=== PATIENT | female | born 1955 | race Caucasian/White ===

== ENCOUNTER 2022-05-10 09:36 | Outpatient (CLI) | payer OTHER, SELFPAY ==
[2022-05-10 11:20] LABS: INR 2.46 (0.91-1.10); Prothrombin Time 27.1 Seconds
== END 2022-05-10 09:37 | disposition home or self-care (01) ==
PROVIDERS: PCP Internal Medicine; Visit Provider Internal Medicine
DX: D68.62 Lupus anticoagulant syndrome (principal); E11.9 Type 2 diabetes mellitus without complications
CPT/HCPCS: 85130; 85610

== ENCOUNTER 2022-06-06 10:00 | Outpatient (RCR) | payer OTHER, SELFPAY ==
--- NOTE | 2022-05-03 14:28 | PT.OPE ---
PT [place] [facility] PT [facility] Eval Start: 05/03/22 11:37 Freq: Status: Active Protocol: Document 05/03/22 14:23 CJT (Rec: 05/03/22 14:28 CJT [id number]) E-Signed By Tomas Pepper PT Physical Therapy Outpatient Evaluation Insurance Information Recert Due Date 08/01/22 Insurance Name [employer] Diagnosis S32.599A - Pubic ramus fracture Treating Diagnosis M25.511 - R hip pain Referring Carol Dow MD Subjective Subjective Pt presents with pain following R rib and pubic ramus fracture that she sustained from a fall on after slipping and falling at a gym pool. Pt was hospitalized 7 days due to uncontrolled pain and has had issues managing her pain since . Pt presents with use of SPC for ambulation assistance. Pt notes walking short distances increases her pain. Is not able to run all errands currently due to pain and struggles to walk from her condo to her car in the garage without a significant increase in pain. Pts pain is lowest in the morning and gradually increases as she is more active throughout the day . Pt is struggling to sleep at night more than 3-4 hours at a time, but does not indicate if this is due to pain or for another reason. Pt lives alone in a senior condo building. 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 Pain Comments 05/07 Current Work Status Retired Precautions Weight Bearing Status Weight Bear as Tolerated Therapy Limitations/Systems Review Not Limited Objective Range of Motion R Hip ROM Flexion - 120 Abduction - 45 IR/ER - 30/15 L Hip ROM Flexion - 120 Abduction - 45 IR/ER - 20/30 Strength R Hip Strength - all motions graded as 3/5 MMT with pain in R groin and posterior hip L Hip Strength Flexion - 4/5 MMT Abduction - 4/5 MMT Adduction - 5/5 MMT IR - 5/5 MMT ER - 5/5 MMT R knee Extension -4/5 MMT R Knee Flexion -4/5 MMT L knee Extension - 4/5 MMT L knee Flexion - 5/5 MMT L ankle DF - 4/5 MMT Palpation Spasms present in R adductor bundle and R TFL and pt reports pain with palpation to these mm as well as R glute med/min > piriformis Assessment Assessment/Impression Pt is a 66 year old female who presents to OP PT clinic with complaints of R hip and pelvic pain following a fall on 02/28/22 in which she fractured a R rib and R pubic ramus. Pt was hospitalized for 7 days due to high pain and inability to care for herself independently. Pt was in W/C for 6-8 weeks per her report due to inability to bear weight due to pain and notes that her pain was fairly well managed until she made the transition from the W/C to use of a walker. Pts pain has been high since making this transition but she notes that she is gradually improving. Pt presents with use of SPC for ambulation today but notes that prior to her fall she was not using a cane. Testing reveals deficits in B LE strength and ROM although hip flexion and abduction ROM is well-preserved. Pt would like to decrease her pain and improve her strength so that she may return to performing errands on her own and without needing to use any assistive devices to aid her. Skilled PT services are medically necessary to address deficits and return patient to highest level of function. Recommend physical therapy sessions 1-2/ week for 8-12 weeks. Pt agrees with this plan, but would like to attend therapy sessions 1/week for now. Printout of HEP was given for I completion and pt gives verbal understanding of each exercise. Primary Functional Limitations Walking, stairs, laying on R side Plan of Care Rehabilitation Potential Good Physical Therapy Goals STG - To be completed in 2-3 weeks: 1. Pt will demo 4/5 MMT or greater for all hip motions bilaterally to provide better support to pelvis with ambulation. 2. 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 3. Pt will report ability to sleep throughout the night without waking due to pain so that she may wake well rested with reduced mental fatigue. LTG - To be completed in 8-12 weeks: 1. Pt to be I with HEP so that she may I manage progression of symptoms. 2. Pt will demo 5/5 MMT for all LE motions for ease of ambulation and ability to ascend descend steps. 3. Pt will ambulate 1000+ ft over uneven surfaces without LOB so that she may walk with her daughter and grandchildren in her yard with confidence and low risk for falls. 4. Pt will report max 2/10 pain in R hip with all activities so that she may return to running errands and playing with her grandchildren without debilitating pain. Treatment Plan/Direct Interventions Electrical Stimulation,Gait Training,Heat,Joint Mobilization,Manual Therapy, Neuromuscular Re-ed,Self-Care/ Home Management,Therapeutic Exercises,Ultrasound Frequency/Duration 1-2/week for 8-12 weeks Patient Will Be Discharged From Therapy Completion of LTG(s),Skills Plateau,Independent w/HEP, Independently Progressing Evaluation Billing Untimed Code Treatment Minutes 35 PT Eval No Charge No Complexity Low Certification Information Initial Certification Date 05/03/22 Ending Certification Date 08/01/22
== END 2022-08-02 11:20 | disposition home or self-care (01) ==
PROVIDERS: PCP Internal Medicine; Visit Provider Internal Medicine
DX: S32.599A Other specified fracture of unspecified pubis, initial encounter for closed fracture (principal); M25.511 Pain in right shoulder; Z51.89 Encounter for other specified aftercare
CPT/HCPCS: 97110; 97116; 97140; 97161; 97530

== ENCOUNTER 2023-02-01 08:20 | Outpatient (CLI) | payer OTHER, SELFPAY | END 2023-02-01 08:21 | disposition home or self-care (01) | LOC: NFLDREF 18:50 | PROVIDERS: PCP Internal Medicine; Referring Provider Internal Medicine; Visit Provider Internal Medicine | DX: D68.62 Lupus anticoagulant syndrome (principal); E11.9 Type 2 diabetes mellitus without complications; I10 Essential (primary) hypertension; Z79.01 Long term (current) use of anticoagulants | CPT/HCPCS: 80053; 80061; 82043; 82570; 85130 ==

== ENCOUNTER 2023-04-30 10:16 | Outpatient (CLI) | payer OTHER, SELFPAY | END 2023-04-30 10:17 | disposition home or self-care (01) | PROVIDERS: PCP Internal Medicine; Visit Provider Internal Medicine | DX: I10 Essential (primary) hypertension (principal); E11.9 Type 2 diabetes mellitus without complications; D68.62 Lupus anticoagulant syndrome | CPT/HCPCS: 85130; 85610 ==

== ENCOUNTER 2023-07-24 10:16 | Outpatient (CLI) | payer OTHER, SELFPAY | END 2023-07-24 10:17 | disposition home or self-care (01) | PROVIDERS: PCP Internal Medicine; Visit Provider Internal Medicine | DX: I10 Essential (primary) hypertension (principal); E11.9 Type 2 diabetes mellitus without complications; D68.62 Lupus anticoagulant syndrome; N18.9 Chronic kidney disease, unspecified; Z79.01 Long term (current) use of anticoagulants; Z51.81 Encounter for therapeutic drug level monitoring | CPT/HCPCS: 80053; 85130; 85610 ==

== ENCOUNTER 2023-08-29 10:48 | Outpatient (CLI) | payer OTHER, SELFPAY | END 2023-08-29 10:49 | disposition home or self-care (01) | LOC: NFLDREF 10:48 | PROVIDERS: PCP Internal Medicine; Visit Provider Internal Medicine | DX: Z79.01 Long term (current) use of anticoagulants (principal) | CPT/HCPCS: 85130; 85610 ==

== ENCOUNTER 2023-11-09 12:21 | Emergency (ER) | payer OTHER, SELFPAY ==
[2023-11-09 12:38] VITALS: BP 119/68; PULSE 91; RESP 18; TEMP 36.6; O2SAT 97; BMI 28.4
--- NOTE | 2023-11-09 13:02 | CRLHL7_ITS ---
For Patients: As a result of the Century Cures Act, medical imaging exams and procedure reports are released immediately into your electronic medical record. You may view this report before your referring provider. If you have questions, please contact your health care provider. INDICATION: Confusion and right hand numbness TECHNIQUE: CT head without contrast. COMPARISON: Head CT 09/01/2021 FINDINGS: CSF spaces: Extra-axial collection on the left with intermixed low-density and high-density. This measures up to 10 millimeters in maximal thickness. Left to right subfalcine shift of 4 millimeters. Brain parenchyma: Cerebral atrophy with some sulcal effacement within the left hemisphere. Old left parietal infarct. Skull base and calvarium: The visualized paranasal sinuses and mastoid air cells demonstrate no acute or significant findings. The visualized orbits are grossly unremarkable. No skull fractures. Atherosclerosis. IMPRESSION: 1. 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 2. Old left parietal infarct. 3. Cerebral atrophy. Results called to Dr. Flores at 1425 on 11/09/2023 Please note that all CT scans at this facility use dose modulation, iterative reconstruction, and/or weight-based dosing when appropriate to reduce radiation dose to as low as reasonably achievable. Dictated by Rosalio Gordon MD @ 11/09/2023 2:26:52 PM (Electronically Signed)
--- OUTSIDE RECORDS SUMMARY | 2023-11-09 13:16 | XMS_ITS | Clinical Summary ---
Author Name Unknown Organization [facility] Address [place], [place] [address] Care Team Providers Care Painter Rough Name Role Phone Victor M Kumar MD Primary Care Provider Allergies Active Allergy Reactions Criticality Noted Date Comments Blood-Group Specific Substance Other - Describe In Comment Field 10/02/2011 Patient has a non-specific antibody. Blood product orders may be delayed. Draw 1 red top tube and 2 purple top tubes for all Type and Screen/Type and Crossmatch orders. Citalopram Diaphoresis 08/15/2017 Heparin Analogues Nausea And Vomiting 9 Oxycodone Nausea Only,Headache High 12/20/2010 Pt wants this allergy removed - works well for pain in general but might give her a JIMENEZ per pt report. Other reaction(s): dizzy, nausea and vomitting Sulfa (Sulfonamide Antibiotics) Arthralgia 08/12/2009 Medications Medication Sig Dispensed Refills Start Date End Date Status lancets (ACCU-CHEK MULTICLIX LANCET) As directed. Test 4 times per day. 102 box 0 09/13/2010 Active blood sugar diagnostic (ONE TOUCH ULTRA TEST) strip As directed. Dispense test strips covered by the patient insurance. Test 3 times per day. 1 Bottle 0 12/20/2010 Active fluticasone, 50 mcg per actuation, nasal (FLONASE) 50 mcg/Actuation nasal sprayIndications:al lergic rhinitis Inhale 1 [place] into both nostrils once daily. 1 Bottle 12 05/19/2011 Active gabapentin (NEURONTIN) 300 mg capsuleIndications: neuropathic pain Take 3 capsules by mouth 3 times daily. 810 capsule 1 09/05/2011 Active blood-glucose meter (ACCU-CHEK ADVANTAGE DIABETES) As directed. Dispense glucose meter, test strips and lancets covered by the patient insurance. Test QID or as directed times per day. 1 Device 0 09/13/2011 Active aspirin chewable 81 mg chewable tabletIndications:m yocardial infarction prevention Take 1 tablet by mouth or nasogastric tube once daily. 30 tablet 0 10/03/2011 Active nitroglycerin (NITROSTAT) 0.4 mg SL tabletIndications:a cute episode of anginal pain Place 1 tablet under the tongue every 5 minutes if needed for Chest Pain (For chest pain x 3 doses.). 1 0 10/03/2011 Active lovastatin (MEVACOR) 40 mg tabletIndications:h yperlipidemia TAKE ONE TABLET BY MOUTH IN THE EVENING WITH MEALS 30 tablet 0 09/23/2012 Active escitalopram oxalate (LEXAPRO) 5 mg tabletIndications:a nxiety with depression Take 5 mg by mouth once daily. 0 08/13/2017 Active metFORMIN (GLUCOPHAGE) 500 mg tabletIndications:t ype 2 diabetes mellitus Take 500 mg by mouth 2 times daily with meals. 0 07/03/2017 Active glipiZIDE extended-release (GLUCOTROL XL) 10 mg Extended-Release tabletIndications:t ype 2 diabetes mellitus Take 2 tablets. by mouth once daily. 0 07/23/2020 Active lisinopril-hydrochl orothiazide, 20-25 mg, (PRINZIDE, ZESTORETIC) 20-25 mg per tabletIndications:h ypertension Take 1 tablet by mouth once daily. 0 12/25/2019 Active acetaminophen (TYLENOL EXTRA STRGTH) 500 mg tabletIndications:C losed fracture of left tibial plateau, initial encounter Take 2 Tablets (1,000 mg) by mouth every 6 hours. Max acetaminophen dose: 4000mg in 24 hrs. 90 Tablet 30 02/25/2021 Active Lantus Solostar U-100 Insulin 100 unit/mL (3 mL) penIndications:Type 2 diabetes mellitus with other specified complication, without long-term current use of insulin (HC) Inject 25 units subcutaneous at bedtime. Product desired:LANTUS 0 02/25/2021 Active lactulose 10 gram/15 mL solutionIndications :Closed fracture of left tibial plateau, initial encounter Take 30 mL (20 g) by mouth every 6 hours if needed for Constipation. 0 02/25/2021 Active polyethylene glycol (MIRALAX; GLYCOLAX) 17 g powder for solutionIndications :Closed fracture of left tibial plateau, initial encounter Mix 17 g (1 Packet) in liquid then take by mouth once daily. 0 02/26/2021 Active insulin aspart, U-100, (NOVOLOG FLEXPEN) 100 unit/mL (3 mL) penIndications:Type 2 diabetes mellitus with other specified complication, without long-term current use of insulin (HC) Give subcutaneous TID with meals per blood glucose (mg/dL). Don't give corrective dose for PRN, post-prandial or nocturnal glucose checks unless ordered.Blood Glucose.....Dose.< 70...............S ee Hypoglycemia Protocol.70-149... .......No insulin, give prandial insulin, if ordered.150-199... .....1 unit.200-249...... ..2 units.250-299..... ...3. units.300-349..... ...4 units.350-399..... ...5 units.400 or greater....6 units & call MD 1 pen 0 02/25/2021 Active ondansetron (Zofran ODT) [address] 1 Tablet (4 mg) on the tongue every 8 hours if needed for Nausea/Vomiting. 0 02/28/2021 Active HYDROmorphone (DILAUDID) 2 mg tabletIndications:C losed fracture of left tibial plateau with routine healing, subsequent encounter Take 1-2 Tablets (2-4 mg) by mouth every 4 hours if needed for Pain (0-5 = 2mg; 6-10=4mg). 15 Tablet 0 03/01/2021 Active warfarin (COUMADIN) 5 mg tablet TAKE 1 TABLET BY MOUTH EVERY DAY EXCEPT SUNDAY. ON WEDNESDAYS, TAKE 1/2 TABLET. 0 07/07/2021 Active ammonium lactate 12% topical (LACHYDRIN) 12 % lotionIndications:T ype 2 diabetes mellitus with pressure callus (HC),Dry skin Apply topically to affected area(s) 2 times daily. 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 Navarro. Shae Mcclain RN 10/05/2011 2:46 PM Chest pain 09/30/2011 NSTEMI (non-ST elevated myocardial infarction) 1 12/01/2010 Protein C deficiency 09/30/2011 Low back pain 09/30/2011 Overview: Uses Vicodin Diabetic renal disease 04/26/2011 Diabetic Preventive Measures : foot exam eye exam urine protein 04/26/2011 Overview: Diabetic Preventive Measures: foot exam eye exam urine protein Breast cancer screening, high risk patient OVERD UE 12/23/10 12/24/[address] dorsey 11/09/2010 Sciatica Controlled with adrianna cotics. See repeat presciptions on vicodin. 05/17/2010 Overview: Controlled with narcotics. See repeat presciptions Issue of repeat prescriptions sciatica 0 Overview: Regular vicodin use for sciatica left leg. Patient has severe structual disease with good control on narcotics with no significant ill effects abuse issues. Other lesser modalities tried and are ineffective or contraindicated by comorbid conditions. 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 Geller (told cannot return to work). CVA 03/07/2009 (2 days after surgery): off Coumadin (stroke thought secondary to blood clot from lung; was found hypoxic in the hospital?) Residual memory loss, sometimes slurs speech, some right-sided weakness. Peripheral Arterial Disease Had claudication, s/p bypass 02/2008, had repeat surgery, then toe amputation for gangrene, then Right BKA. 08/12/2009 Overview: Had claudication, s/p bypass 02/2008, had repeat surgery, then toe amputation for gangrene, then Right BKA. Hospital ICU for sepsis, then Rehab, wound vac, skin graft, fell, revision of skin graft 02/2009. Right leg prosthesis and cane: Neurontin for phantom limb pain. Diabetes Mellitus II Novolog and Lantus (right B KA) 08/12/2009 Overview: Last A1c: 8.512/12/2010 a system change updated this record. This will not affect patient care or billing. This comment can be deleted. ASCVD (Arteriosclerotic Card iovascular Disease) 2002. s/p 2 stents 08/12/2009 Overview: 2002. s/p 2 stents. Hyperlipidemia on lovastatin ldl 11/09/2010 53 Overview: LDL 42 09/05/11 HIGH BLOOD PRESSURE on lisinopril hctz, carvedil ol 08/12/2009 Overview: Carvedilol, Lisinopril/HCTZ. DEPRESSION celexa, effexor c ymbalta all failed. start sertraline 09/05/11 08/12/2009 Overview: meds she has had before: celexa, lexapro, prozac, wellbutrin -- tolerated all these, not sure why any were changed. zoloft she did not like not sure why. effexor caused wt gain. She did not like cymbalta, stopped it fall 2009. celexa = diaphoresis DVT DVT, been told she has L AC and protein c deficiency. May have had a PE. On lifelong anticoagualtion, has been managed with coumadin and INRs, no 08/12/2009 Overview: DVT, been told she has LAC and protein c deficiency. May have had a PE. On lifelong anticoagualtion, has been managed with coumadin and INRs, not factor Xs. Resolved Problems Problem Noted Date Diagnosed Date Resolved Date Diabetic eye exam 04/26/2011 04/26/2011 Major depression, recurrent 08/24/2010 12/24/2010 Overview: meds she has had before: celexa, lexapro, prozac, wellbutrin -- tolerated all these, not sure why any were changed. zoloft she did not like not sure why. effexor caused wt gain. cymbalta caused night sweats. 08/24/2010 Ramana Navarro MD Stroke History of TIA or mul tiple small biswas at [facility] 200810/27/2009 Overview: History of TIA or multiple small biswas at [facility] 2008 Encounters Date Type Department Care Team Description 11/06/2023 Lab Requisition [facility] [phone] Victor M Kumar MD 08/29/2023 Lab Requisition [facility] [phone] Victor M Kumar MD from Last 3 Months Immunizations Name Administration Dates Next Due COVID-19 vaccine ([employer] 30mcg/0.3mL) RENEA MICHEL 01/15/2021,12/24/2020 Influenza RIV4 (Age 18+ Year s) PRESERV FREE 08/12/2020 Influenza Virus, Unspecified 07/19/2015, 09/03/2014,07/12/2012,2011,08/12/2011,07/19/2004,08/10/2003,1 11/18/2001 Influenza, IIV3 (Age >=3 years) 07/13/2009,09/06 Influenza, IIV4 08/09/2019,07/13/2018,08/10/2016 Influenza,CCIIV4 PRESERV FREE 07/25/2017 Pneumococcal Poly,23-Valent (Pneumovax) 10/03/2013,09/06/2000 Pneumococcal conj 13-Valent (Prevnar 13) 12/15/2020 Td (Age >=7 Years) 02/27/2008,05/29/1997 Td, Preservative Free (age > = 7 Years) 03/12/2009 Tdap 08/12/2020 Tdap, Unspecified 06/07/2007 Zoster (Shingrix-RZV, recombinant) 10/13/2019, Family History Medical History Relation Name Comments Alcohol/Drug Brother 2 Hypertension Father Other Father Lymphoma Stroke Father Heart Disease Maternal Grandfather 90 y.o . Heart Disease Maternal Grandmother 50s y. o. Diabetes Mother Hypertension Sister 2 Psychiatric illness Sister 3 Depressi on Relation Name Status Comments Brother 1 (Age 50) ETOH Brother 2 Father (Age 60s) Lymphoma Maternal Grandfather Maternal Grandmother Mother (Age 79) In her sle ep Sister 1 Alive 3 Sisters Sister 2 Sister 3 Social History Tobacco Use Types Packs/Day Years Used Date Smoking Tobacco: Former Cigarettes 2 12 0 10/29/1988 - 10/29/2000 Smokeless Tobacco: Never Tobacco Cessation:Counseling Given: Yes Comments:None since 2000. Alcohol Use Standard Drinks/Week Comments No 0 (1 standard drink = 0.6 oz pur e alcohol) None since 2007: by choice. 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 Pulse 82 09/20/2021 2:35 PM ORE DRESSING ENGINEER Temperature 36.5 ??C (97.7 ??F) 02/25/2021 8:00 AM CD T Respiratory Rate 16 02/25/2021 8:00 AM CDT Oxygen Saturation 98% 09/20/2021 2:35 PM ORE DRESSING ENGINEER Inhaled Oxygen Concentration - - Weight 92.1 kg (203 lb) 09/20/2021 2:35 PM ORE DRESSING ENGINEER Height 177.8 cm (5' 10) 02/22/2021 12:32 PM CDT Body Mass Index 29.13 02/22/2021 12:32 PM CDT Plan of Treatment Health Maintenance Due Date Last Done Comments Depression screening for age 12+ 1967 Hepatitis C screening for ag e 18-79 1973 Mammogram for age 45-75 10/11/2012 10/11/2011 Colonoscopy through age 75 11/17/201511/17 (Completed outside of [facility]), 10/29/2005 (Completed outside of [facility]) BMI (ht and wt on same day) for age 18+ 07/17/2019 07/17/2018, 08/15/2017 DEXA/DXA scan for age 65+ 2020 Medicare Wellness for age 65+ 2020 Lipids for age 45-75 04/12/2023 04/12/2018, 09/05/2011, 04/26/2011, Additional history exists COVID-19 vaccine series (24 season) 2023 07/29/2021, 01/15/2021, 12/24/2020 Influenza for age 65+ 06/29/2023 08/12/2020 , 08/09/2019, 07/13/2018, Additional history exists Pneumococcal series for age 65+ (3 of 3 - PPSV23 or PCV20) 12/15/2025 12/15/2020, 10/03/2013, 09/06/2000 Tetanus booster 08/12/2030 08/12/2020, 02/26, 02/27/2008, Additional history exists Zoster (shingles) series for age 50+ Completed 10/13/2019, 03/28/2019 Tdap Completed 08/12/2020, 06/07/2007 Procedures Procedure Name Priority Date/Time Associated Diagnosis Comments FACTOR 10 CHROMOGENIC Routine 11/06/2023 1:02 PM ORE DRESSING ENGINEER FACTOR 10 CHROMOGENIC Routine 08/29/2023 12:00 PM CDT from Last 3 Months Results * (ABNORMAL) FACTOR 10 CHROMOGENIC (11/06/2023 1:02 PM ORE DRESSING ENGINEER) Only the most recent of2 resultswithin the time period is included. FACTOR 10 CHROMOGENIC 23(L) 65 - 130 % 11/06/2023 4:35 PM ORE DRESSING ENGINEER [facility] Blood BLOOD SPECIMEN / Unknown Client Collect / Unknown 11/06/2023 1:02 PM ORE DRESSING ENGINEER 11/06/2023 4:14 PM ORE DRESSING ENGINEER Narrative [facility] - 11/06/2023 4:35 PM ORE DRESSING ENGINEER Therapeutic Range 20-40% Victor M Kumar MD SEND OUTS Performing Organization Address City/State/[facility] Co de Phone Number [facility] [address] [place] [address], from Last 3 Months Advance Directives Latest Code Status on File Code Status Date Activated Date Inactivated Comments Full Code 02/22/2021 2:15 PM 02/25/2021 4:14 PM Question Answer Comments Code Status Discussion: Not Discussed Code Status History Code Status Date Activated Date Inactivated Comments Full Code 04/12/2018 1:04 PM 04/17/2018 2:50 PM Full Code 09/30/2011 3:50 PM 10/03/2011 6:40 PM Care Teams Painter Rough Relationship Specialty Start Date End Date Victor M Kumar MD [address] [place] [id number] PCP - General Emergency Medicine 11/01/16
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
[2023-11-09 13:27] LABS: Basophils Absolute Auto 0.01 K/uL (0.00-0.30); Basophils Percent Auto 0.2 % (0.0-3.0); Eosinophils Absolute Auto 0.07 K/uL (0.00-0.50); Eosinophils Percent Auto 1.1 % (0.0-7.0); Hematocrit 32.6 % (33.0-51.0); Hemoglobin* 10.6 gm/dL (12.0-16.0); Immature Granulocytes Abs Auto 0.05 K/uL (0.00-0.30); Immature Granulocytes Pct Auto 0.8 %; Lymphocytes Percent Auto 10.4 % (20-44); Mean Corpuscular HGB Conc 33 gm/dL (32-36); Mean Corpuscular Hemoglobin 27 pg (26-34); Mean Corpuscular Volume 84 fL (80-100); Monocytes Percent Auto 7.4 % (0.0-11.0); Neutrophils Percent Auto 80.1 % (42.0-72.0); Platelet Count* 196 K/uL (140-440); Red Blood Count 3.87 m/uL (4.00-5.20); White Blood Count* 6.34 K/uL (4.50-11.00)
[2023-11-09 13:33] LABS: Slide Review Reflex No
[2023-11-09 13:45] LABS: Albumin* 4.3 g/dL (3.3-5.0); Chloride* 98 mmol/L (96-114)
[2023-11-09 13:46] LABS: Potassium* 5.4 mmol/L (3.6-5.1); Sodium* 130 mmol/L (135-149)
[2023-11-09 13:48] LABS: Alanine Aminotransferase* 34 U/L (4-35); Alkaline Phosphatase* 110 U/L (40-150); Anion Gap 10 mEq/L (7-15); Aspartate Amino Transferase* 42 U/L (12-35); Bilirubin Total* 0.4 mg/dL (0.1-1.5); Blood Urea Nitrogen* 23 mg/dL (7-30); Carbon Dioxide* 22 mmol/L (20-32); Creatinine* 1.4 mg/dL (0.5-1.5); Est. Creatinine Clearance* 41.59; Estimated Glomerular Filt Rate 41 ml/min; Prothrombin Time 27.9 Seconds
[2023-11-09 13:49] LABS: Calcium* 9.3 mg/dL (8.4-10.6); Glucose* 111 mg/dL (60-115); Magnesium* 1.6 mg/dL (1.5-2.6)
[2023-11-09 13:50] LABS: PCR FLU A Negative PCR FLU A (Negative); PCR FLU B Negative PCR FLU B (Negative); PCR RSV Negative PCR RSV (Negative); SARS PCR* Negative SARS-CoV-2 (Negative)
[2023-11-09 14:13] LABS: Appearance Urine Slightly Cloudy (Clear); Bilirubin Urine Negative (Negative); Blood Urine Trace-intact (Negative); Color Urine Yellow (Yellow); Glucose Urine Negative (Negative); Ketones Urine Trace (Negative); Leukocyte Esterase Urine Trace (Negative); Nitrite Urine Negative (Negative); Protein Urine 2+ (Negative); pH Urine 6.5 (5.0-8.5)
[2023-11-09 14:17] LABS: Troponin I* < 0.01 ng/mL (0.01-0.04)
[2023-11-09 14:23] LABS: Bacteria Urine Moderate; Squamous Epithelial Cell Urine Moderate (None-Few)
[2023-11-09] MEDS: PHYTONADIONE (VIT K1) 5 MG in 0.9 % SODIUM CHLORIDE 50 ml 50 ML 101 MG IVPB (15:44)
--- NOTE | 2023-11-09 16:18 | ED.NURSE ---
This nurse called report to TRACY Alicea at [facility] ICU. Nurse knows that pt is coming to them for a direct admit. Called pt's daughter Paulette and she is aware of [facility] phone numbers and moms room number in ICU. Pt left with all belongings, purse and phone and jacket, kept clothes on, did not want to change into a gown too cold.
== END 2023-11-09 16:20 | disposition short-term general hospital (02) ==
PROVIDERS: Emergency Provider Student in an Organized Health Care Education/Training Program; PCP Internal Medicine
DX: S06.5XAA Traumatic subdural hemorrhage with loss of consciousness status unknown, initial encounter (principal)
CPT/HCPCS: 36415; 70450; 80053; 81001; 83735; 84484; 85025; 85610; 87086; 87631; 93005; 96374; 96375; 99284; 99291; A0425; A0428; J3430; J7168

== ENCOUNTER 2024-02-27 09:01 | Outpatient (CLI) | payer OTHER, SELFPAY ==
--- OUTSIDE RECORDS SUMMARY | 2024-02-27 09:08 | XMS_ITS | Clinical Summary ---
Author Name Unknown Organization [facility] Address [place], [place] [address] Care Team Providers Care [employer] Name Role Phone Victor M Kumar MD Primary Care Provider [phone] Aldo Arizmendi Unavailable [phone] Allergies Active Allergy Reactions Criticality Noted Date [...] Test 4 times per day. 102 box PRN 09/13/2010 Active blood sugar diagnostic (ONE TOUCH ULTRA TEST) strip As directed. Dispense test strips covered by the patient insurance. Test 3 times per day. 1 Bottle PRN 12/20/2010 Active fluticasone, 50 mcg per actuation, nasal (FLONASE) 50 mcg/Actuation nasal sprayIndications:all ergic conjunctivitis,aller gic rhinitis Inhale 1 [place] into both nostrils once daily. 1 Bottle 12 05/19/2011 Active blood-glucose meter (ACCU-CHEK ADVANTAGE DIABETES) As directed. Dispense glucose meter, test strips and lancets covered by the patient insurance. Test QID or as directed times per day. 1 Device 0 09/13/2011 Active lovastatin (MEVACOR) 40 mg tabletIndications:hy perlipidemia,mixed hyperlipidemia TAKE ONE TABLET BY MOUTH IN THE EVENING WITH MEALS 30 tablet 0 09/23/2012 Active escitalopram oxalate (LEXAPRO) 5 mg tabletIndications:an xiety with depression Take 5 mg by mouth once daily. 08/13/2017 Active insulin aspart, U-100, (NOVOLOG FLEXPEN) 100 unit/mL (3 mL) penIndications:type 2 diabetes mellitus Give subcutaneous TID with meals per blood glucose (mg/dL). Don't give corrective dose for PRN, post-prandial or nocturnal glucose checks unless ordered.Blood Glucose.....Dose.<7 0...............See Hypoglycemia Protocol.70-149.... ......No insulin, give prandial insulin, if ordered.150-199.... ....1 unit.200-249....... .2 units.250-299...... ..3. units.300-349...... ..4 units.350-399...... ..5 units.400 or greater....6 units & call MD 1 pen 02/25/2021 Active ondansetron (Zofran ODT) 4 mg disintegrating tabletIndications:pr evention of post-operative nausea and vomiting Place 1 Tablet (4 mg) on the tongue every 8 hours if needed for Nausea/Vomiting. 0 02/28/2021 Active Lantus Solostar U-100 Insulin 100 unit/mL (3 mL) penIndications:Diabe tic nephropathy associated with type 2 diabetes mellitus (HC) Inject 22 units subcutaneous once daily. Product desired: BASAGLAR TEMPO 12/04/2023 Active acetaminophen (TYLENOL EXTRA STRGTH) 500 mg tabletIndications:Ne ck sprain, initial encounter Take 2 Tablets (1,000 mg) by mouth 4 times daily if needed for Pain or Temp > (Specify) (Temp >100.4 F (38 C)). Max acetaminophen dose: 4000mg in 24 hrs. 12/04/2023 Active artificial saliva (MOUTH KOTE) spraIndications:Dry mouth Take 1 mL by mouth every 15 minutes if needed (dry mouth). 12/04/2023 Active carvediloL (COREG) 25 mg tabletIndications:Es sential hypertension Take 1 Tablet (25 mg) by mouth two times daily with meals. 12/04/2023 Active lidocaine 4 % topical patchIndications:Nec k sprain, initial encounter Apply to intact skin to cover most painful area for max 12hr per 24hr period. 12/05/2023 Active nystatin powder (MYCOSTATIN) powderIndications:In tertrigo Apply topically to affected area(s) two times daily. 12/04/2023 Active gabapentin (NEURONTIN) 300 mg capsuleIndications:D iabetic nephropathy associated with type 2 diabetes mellitus (HC) Take 2 Capsules (600 mg) by mouth three times daily. 12/04/2023 Active amLODIPine (NORVASC) 10 mg tabletIndications:Es sential hypertension Take 1 Tablet (10 mg) by mouth once daily. 12/05/2023 Active albuterol-ipratropiu m (DUONEB) (2.5-0.5 mg) in 3 mL NEBULIZATION solution Inhale 3 mL via a nebulizer 4 times daily. May use an additional 1 neb (=3 mL) every 4 hours if needed. 12/10/2023 Active guaiFENesin (MUCINEX) 600 mg Extended-Release tablet Take 1 Tablet (600 mg) by mouth two times daily. 12/10/2023 Active warfarin (COUMADIN) 5 mg tabletIndications:Reshma pus anticoagulant positive,Anticoagula tion monitoring, special range Take by mouth 2/13: 5 mg; 2/14: 5 mg; 2/15: 5 mg; 2/16: 5 mg; 2/17: 5 mg; 2/18: 5 mg in the evening OR as directed 12/11/2023 Active furosemide (LASIX) 40 mg tabletIndications:Dy spnea, unspecified type,Pleural effusion Take 1 Tablet (40 mg) by mouth every morning. 30 Tablet 12/13/2023 Active potassium chloride (KLOR-CON M20) 20 mEq extended-release tablet (part/cryst)Indicati ons:Hypokalemia Take 1 Tablet (20 mEq) by mouth once daily with a meal. 30 Tablet 12/13/2023 Active Active Problems Problem Noted Date Diagnosed Date Subdural hematoma 11/09/2023 Diastolic dysfunction 11/09/2023 Overview: Overview: Hosp for CHF April 05; normal syst function History of section 11/09/2023 History of coronary artery stent placement 11/09 History of third molar tooth extraction 11/09/19 History of myocardial infarction 11/09/2023 Presence of stent in coronary artery 11/09/2023 Anticoagulation goal of INR 2 to 3 11/09/2023 Primary hypercoagulable state 11/09/2023 Overview: Overview: Lupus anticoagulant; Protein C deficiency. 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 doresy 11/09/2010 Sciatica Controlled with adrianna cotics. See [...] or contraindicated by comorbid conditions. Ramana Navarro Stroke History of TIA or mul tiple small biswas at [facility] 200810/27/2009 Overview: History of TIA or multiple small biswas at [facility] 2008 Renal Insufficiency 11/09/2010 cr = 1.43* 009 Overview: CREATININE (mg/dL) Date Value 10/12/09 12:07 PM 1.54* CREATININE (mg/dL) Date Value 11/09/2010 1.43* Special Screening for Malign ant Neoplasms, Colon 2005 colonoscopy, neg, repeat 10 years-reported by pt 10/12/2009 Overview: 2005 colonoscopy, neg, repeat 10 years-reported by pt.......Hiral Ahumada CMA 10/12/2009 10:47 AM Cerebrovascular accident (CVA) 08/12/2009 Overview: Neurology: Dr. Geller (told cannot [...] (right B KA) 08/12/2009 Overview: Last A1c: 8.512 a system change updated this record. This will not affect patient care or billing. This comment can be deleted. Hyperlipidemia on lovastatin ldl 11/09/2010 53 Overview: [...] with coumadin and INRs, not factor Xs. Sprain of neck 01/19/2009 Allergic rhinitis 05/02/2007 Overview: Overview: Problem list name updated by automated process. Provider to review Nonspecific immunological findings 11/13/2005 Overview: Overview: LW Onset: ; Lupus Anticoagulant Syndrome Coronary atherosclerosis 08/25/2005 Overview: 2003. s/p 2 stents. Overview: CT followed by stent placement Problem list name updated by automated process. Provider to review Anxiety state 10/17/2004 Overview: Overview: Problem list name updated by automated process. Provider to review Overview: LW Modifier: Flight anxiety LW Onset: [id number] ; Anxiety NOS Tobacco use disorder 10/17/2004 Overview: Overview: LW Modifier: quit 08/2004 LW Onset: [id number] ; Tobacco Abuse Resolved Problems Problem Noted Date Diagnosed Date Resolved Date Anticoagulation monitoring, special range 20-40% 12/05/2023 01/01/2024 Diabetic eye exam 04/26/2011 04/26/2011 Major depression, recurrent 08/24/2010 12/24/2010 Overview: meds she has had before: celexa, lexapro, prozac, wellbutrin -- tolerated all these, not sure why any were changed. zoloft she did not like not sure why. effexor caused wt gain. cymbalta caused night sweats. 08/24/2010 Ramana Navarro MD Encounters Date Type Department Care Team Description 01/01/2024 Telephone [facility] [address] [place], [place] [id number] Clinic, Asct Tcu Inr Anticoagulation (Chart update) 12/24/2023 Lab Requisition [facility] [phone] Victor M Kumar MD 12/17/2023 Lab Requisition [facility] [phone] Ovidio Caldwell MD 12/17/2023 Patient Outreach [facility] Care Management - Care Management Navigation/[facility] [address] [place] [id number] Aldo Arizmendi [facility] TCU Transition 12/17/2023 Lab Requisition [address] [address] Jennifer Wood NP 12/12/2023 Lab Requisition [address] [address] Jennifer Wood NP 12/11/[address] [address] Clinic, Asct Tcu Inr Anticoagulation (Dosing clarity) 12/11/2023 Nurse Triage [address] [address] Jennifer Wood NP Medication Management (Coumadin) 12/11/2023 Anticoagulation (warfarin) [address] [address] Clinic, Asct Tcu Inr Anticoagulation (TCU) 12/11/2023 Lab Requisition [address] [address] Susu Clark MD 12/10/2023 12:30 PM [facility] [address] [address] Mariaelena Vang NP Transitional Care Visit (Initial & TCU Discharge Summary) 12/10/2023 Lab Requisition [address] [address] Susu Clark MD 12/07/2023 1:30 PM [facility] [address] [address] Susu Clark MD Transitional Care Visit (Admit) 12/07/2023 Lab Requisition [address] [address] Susu Clark MD 12/06/2023 3:22 AM STRAW HAT MACHINE OPERATOR - 12/06/2023 10:18 AM STRAW HAT MACHINE OPERATOR Emergency [address] [address] Johnny Shrestha MD Pattee, Justin Andrew, MD Dyspnea, unspecified type (Primary Dx); Pleural effusion Discharge Disposition: Home Self Care 12/06/2023 Patient Outreach [facility] Care Management - Care Management Navigation/[facility] [address] [place] [id number] Aldo Arizmendi [facility] Transition 12/06/2023 Anticoagulation (warfarin) [address] [address] Clinic, Asct Tcu Inr Anticoagulation (CFX in ER, chart update) 12/06/2023 Travel 12/06/2023 Nurse Triage [address] [address] Susu Clark MD Breathing Problem 12/05/[address] [address] Tessa Shah RN Chest Pain 12/05/2023 Anticoagulation (warfarin) [address] [address] Clinic, Asct Tcu Inr Anticoagulation (TCU) 12/05/2023 Lab Requisition [facility] [address] [place] [address] Susu Clark MD 12/04/[address] [address] Jennifer Wood NP Anticoagulation (Orders) 12/04/2023 Nurse Triage [address] [address] Jennifer Wood NP Lab 11/09/2023 5:18 PM STRAW HAT MACHINE OPERATOR - 12/04/2023 10:30 AM STRAW HAT MACHINE OPERATOR Hospital Encounter [facility] [address] [place] [address] Saman Arredondo MBBS Kirkland, Silvia Kent MD [facility], [facility] Hospitalists Of Dot Ramos MD Pensa, MD Johan Durant Hani, MBBS Brandt, David Fredrick, MD Diabetic nephropathy associated with type 2 diabetes mellitus (HC) (Primary Dx); Cardiovascular symptoms; Primary hypercoagulable state (HC); Neck sprain, initial encounter; Dry mouth; Cough, unspecified type; Essential hypertension; Intertrigo; Chronic respiratory failure with hypoxia (HC) Discharge Disposition: Half-Way Facility from Last 3 Months Immunizations Name Administration Dates Next Due COVID-19 vaccine ([employer] 30mcg/0.3mL) RENEA MICHEL 01/15/2021,12/24/2020 Influenza RIV4 (Age [...] e alcohol) None since 2007: by choice. Social Connections Answer Date Recorded Frequency of Communication with Friends and Fami ly Not on file 11/09/2023 Sex and Gender Information Value Date Recorded Sex Assigned at Not on file Gender Identity Not on file Sexual Orientation Not on file Obstetrics History Last Filed Vital Signs Vital Sign Reading Time Taken Comments Blood Pressure 144/60 12/06/2023 9:00 AM STRAW HAT MACHINE OPERATOR Pulse 59 12/06/2023 10:00 AM STRAW HAT MACHINE OPERATOR Temperature 36.9 ??C (98.5 ??F) 12/06/2023 3:27 AM CS T Respiratory Rate 21 12/06/2023 10:00 AM STRAW HAT MACHINE OPERATOR Oxygen Saturation 95% 12/06/2023 10:00 AM STRAW HAT MACHINE OPERATOR Inhaled Oxygen Concentration - - Weight 85.3 kg (188 lb) 12/06/2023 3:24 AM STRAW HAT MACHINE OPERATOR Height 177.8 cm (5' 10) 12/06/2023 3:24 AM STRAW HAT MACHINE OPERATOR Body Mass Index 26.98 12/06/2023 3:24 AM STRAW HAT MACHINE OPERATOR Plan of Treatment Health Maintenance Due Date Last Done Comments Depression screening for age 12+ 1967 Hepatitis C screening for ag e 18-79 1973 Mammogram for age 45-75 10/11/2012 10/11/2011 Colonoscopy through age 75 11/17/201511/17 (Completed outside of [facility]), 10/29/2005 (Completed outside of [facility]) BMI (ht and wt on same day) for age 18+ 07/17/2019 07/17/2018, 08/15/2017 DEXA/DXA scan for age 65+ 2020 Medicare Wellness for age 65+ 2020 Pneumococcal series for age 65+ (4 of 4 - PPSV23 or PCV20) 12/15/2021 12/15/2020, 10/03/2013, 09/06/2000 Lipids for age 45-75 04/12/2023 04/12/2018, 09/05/2011, 04/26/2011, Additional history exists Influenza for age 65+ 06/29/2024 08/12/2020 , 08/09/2019, 07/13/2018, Additional history exists Tetanus booster 08/12/2030 08/12/2020, 02/26, 02/27/2008, Additional history exists Zoster (shingles) series for age 50+ Completed 10/13/2019, 03/28/2019 Tdap Completed 08/12/2020, 06/07/2007 COVID-19 vaccine series Completed 08/21/20 23, 07/25/2022, 02/06/2022, Additional history exists Procedures Procedure Name Priority Date/Time Associated Diagnosis Comments FACTOR 10 CHROMOGENIC Routine 12/24/2023 11:09 AM STRAW HAT MACHINE OPERATOR PRO-BNP Routine 12/12/2023 6:11 AM STRAW HAT MACHINE OPERATOR Other primary thrombophilia (HC) Atherosclerotic heart disease of [place] coronary artery without angina pectoris Anemia, unspecified BASIC METABOLIC PANEL Routine 12/12/2023 6:11 AM STRAW HAT MACHINE OPERATOR Other primary thrombophilia (HC) Atherosclerotic heart disease of [place] coronary artery without angina pectoris Anemia, unspecified CBC W PLT NO DIFF Routine 12/12/2023 6:1 1 AM STRAW HAT MACHINE OPERATOR Other primary thrombophilia (HC) Atherosclerotic heart disease of [place] coronary artery without angina pectoris Anemia, unspecified BASIC METABOLIC PANEL Routine 12/11/2023 6:21 AM STRAW HAT MACHINE OPERATOR Other ill-defined heart diseases FACTOR 10 CHROMOGENIC Routine 12/10/2023 6:33 AM STRAW HAT MACHINE OPERATOR Acute embolism and thrombosis of unspecified deep veins of unspecified lower extremity (HC) BASIC METABOLIC PANEL Routine 12/07/2023 6:21 AM STRAW HAT MACHINE OPERATOR Traumatic subdural hemorrhage with loss of consciousness status unknown, subsequent encounter TROPONIN T (HS) ONE TIME Timed 12/06/2023 5:43 AM STRAW HAT MACHINE OPERATOR FACTOR 10 CHROMOGENIC BALDOMERO 12/06/2023 5:43 AM STRAW HAT MACHINE OPERATOR XR CHEST 1 VIEW PORTABLE STAT 12/06/2023 3:47 AM STRAW HAT MACHINE OPERATOR CBC WITH AUTO DIFFERENTIAL STAT 12/06/2023 3:38 AM STRAW HAT MACHINE OPERATOR PROTIME-INR STAT 12/06/2023 3:38 AM STRAW HAT MACHINE OPERATOR PRO-BNP STAT 12/06/2023 3:38 AM STRAW HAT MACHINE OPERATOR TROPONIN T (HS) ACUTE W/2HR REFLEX STAT 12/06/2023 3:38 AM STRAW HAT MACHINE OPERATOR BASIC METABOLIC PANEL STAT 12/06/2023 3:38 AM STRAW HAT MACHINE OPERATOR CBC WITH AUTO DIFFERENTIAL STAT 12/06/2023 3:38 AM STRAW HAT MACHINE OPERATOR EKG 12 LEAD STAT 12/06/2023 3:32 AM STRAW HAT MACHINE OPERATOR FACTOR 10 CHROMOGENIC Routine 12/05/2023 7:06 AM STRAW HAT MACHINE OPERATOR Acute embolism and thrombosis of unspecified deep veins of unspecified lower extremity (HC) HEPARIN LEVEL Early AM 12/04/2023 7:05 AM STRAW HAT MACHINE OPERATOR FACTOR 10 CHROMOGENIC Early AM 12/04/2023 7:05 AM STRAW HAT MACHINE OPERATOR HEMATOCRIT Early AM 12/04/2023 7:05 AM STRAW HAT MACHINE OPERATOR HEMOGLOBIN Early AM 12/04/2023 7:05 AM STRAW HAT MACHINE OPERATOR PLATELET COUNT Early AM 12/04/2023 7:05 AM STRAW HAT MACHINE OPERATOR GLUCOSE METER Timed 12/04/2023 6:39 AM STRAW HAT MACHINE OPERATOR GLUCOSE METER Timed 12/03/2023 10:04 PM STRAW HAT MACHINE OPERATOR GLUCOSE METER Timed 12/03/2023 5:05 PM STRAW HAT MACHINE OPERATOR GLUCOSE METER Timed 12/03/2023 12:11 PM STRAW HAT MACHINE OPERATOR GLUCOSE METER Timed 12/03/2023 10:27 AM STRAW HAT MACHINE OPERATOR GLUCOSE METER Timed 12/03/2023 7:42 AM STRAW HAT MACHINE OPERATOR HEPARIN LEVEL Early AM 12/03/2023 5:02 AM STRAW HAT MACHINE OPERATOR APTT Early AM 12/03/2023 5:02 AM STRAW HAT MACHINE OPERATOR FACTOR 10 CHROMOGENIC Early AM 12/03/2023 5:02 AM STRAW HAT MACHINE OPERATOR HEMATOCRIT Early AM 12/03/2023 5:02 AM STRAW HAT MACHINE OPERATOR HEMOGLOBIN Early AM 12/03/2023 5:02 AM STRAW HAT MACHINE OPERATOR PLATELET COUNT Early AM 12/03/2023 5:02 AM STRAW HAT MACHINE OPERATOR GLUCOSE METER Timed 12/03/2023 12:56 AM STRAW HAT MACHINE OPERATOR GLUCOSE METER Timed 12/02/2023 9:30 PM STRAW HAT MACHINE OPERATOR GLUCOSE METER Timed 12/02/2023 4:37 PM STRAW HAT MACHINE OPERATOR GLUCOSE METER Timed 12/02/2023 1:01 PM STRAW HAT MACHINE OPERATOR GLUCOSE METER Timed 12/02/2023 6:53 AM STRAW HAT MACHINE OPERATOR HEPARIN LEVEL Early AM 12/02/2023 6:13 AM STRAW HAT MACHINE OPERATOR FACTOR 10 CHROMOGENIC Early AM 12/02/2023 6:13 AM STRAW HAT MACHINE OPERATOR HEMATOCRIT Early AM 12/02/2023 6:13 AM STRAW HAT MACHINE OPERATOR HEMOGLOBIN Early AM 12/02/2023 6:13 AM STRAW HAT MACHINE OPERATOR PLATELET COUNT Early AM 12/02/2023 6:13 AM STRAW HAT MACHINE OPERATOR GLUCOSE METER Timed 12/01/2023 10:09 PM STRAW HAT MACHINE OPERATOR GLUCOSE METER Timed 12/01/2023 4:58 PM STRAW HAT MACHINE OPERATOR EKG 12 LEAD STAT 12/01/2023 12:40 PM STRAW HAT MACHINE OPERATOR GLUCOSE METER Timed 12/01/2023 11:41 AM STRAW HAT MACHINE OPERATOR GLUCOSE METER Timed 12/01/2023 8:16 AM STRAW HAT MACHINE OPERATOR HEPARIN LEVEL Early AM 12/01/2023 7:00 AM STRAW HAT MACHINE OPERATOR SODIUM Early AM 12/01/2023 7:00 AM STRAW HAT MACHINE OPERATOR CREATININE Early AM 12/01/2023 7:00 AM STRAW HAT MACHINE OPERATOR FACTOR 10 CHROMOGENIC Early AM 12/01/2023 7:00 AM STRAW HAT MACHINE OPERATOR HEMATOCRIT Early AM 12/01/2023 7:00 AM STRAW HAT MACHINE OPERATOR HEMOGLOBIN Early AM 12/01/2023 7:00 AM STRAW HAT MACHINE OPERATOR PLATELET COUNT Early AM 12/01/2023 7:00 AM STRAW HAT MACHINE OPERATOR GLUCOSE METER Timed 12/01/2023 3:12 AM STRAW HAT MACHINE OPERATOR HEPARIN LEVEL Timed 12/01/2023 12:38 AM STRAW HAT MACHINE OPERATOR GLUCOSE METER Timed 11/30/2023 10:33 PM STRAW HAT MACHINE OPERATOR GLUCOSE METER Timed 11/30/2023 5:34 PM STRAW HAT MACHINE OPERATOR HEPARIN LEVEL Timed 11/30/2023 5:08 PM STRAW HAT MACHINE OPERATOR GLUCOSE METER Timed 11/30/2023 12:59 PM STRAW HAT MACHINE OPERATOR PLATELET ESTIMATE Timed 11/30/2023 7:5 0 AM STRAW HAT MACHINE OPERATOR FACTOR 10 CHROMOGENIC Early AM 11/30/2023 7:50 AM STRAW HAT MACHINE OPERATOR POTASSIUM Early AM 11/30/2023 7:50 AM STRAW HAT MACHINE OPERATOR SODIUM Early AM 11/30/2023 7:50 AM STRAW HAT MACHINE OPERATOR CREATININE Early AM 11/30/2023 7:50 AM STRAW HAT MACHINE OPERATOR PRO-BNP Early AM 11/30/2023 7:50 AM STRAW HAT MACHINE OPERATOR HEPARIN LEVEL Early AM 11/30/2023 7:50 AM STRAW HAT MACHINE OPERATOR HEMATOCRIT Early AM 11/30/2023 7:50 AM STRAW HAT MACHINE OPERATOR HEMOGLOBIN Early AM 11/30/2023 7:50 AM STRAW HAT MACHINE OPERATOR PLATELET COUNT Early AM 11/30/2023 7:50 AM STRAW HAT MACHINE OPERATOR GLUCOSE METER Timed 11/30/2023 6:26 AM STRAW HAT MACHINE OPERATOR SCAN-SLEEP STUDY 11/30/2023 12:0 0 AM STRAW HAT MACHINE OPERATOR GLUCOSE METER Timed 11/29/2023 9:12 PM STRAW HAT MACHINE OPERATOR GLUCOSE METER Timed 11/29/2023 5:17 PM STRAW HAT MACHINE OPERATOR XR ABDOMEN 1 VIEW PORTABLE Routine 11/29/2023 2:26 PM STRAW HAT MACHINE OPERATOR GLUCOSE METER Timed 11/29/2023 12:00 PM STRAW HAT MACHINE OPERATOR OSMOLALITY,URINE Today 11/29/2023 10:3 6 AM STRAW HAT MACHINE OPERATOR SODIUM,RANDOM URINE Today 11/29/2023 1 0:36 AM STRAW HAT MACHINE OPERATOR GLUCOSE METER Timed 11/29/2023 8:13 AM STRAW HAT MACHINE OPERATOR GLUCOSE METER Timed 11/29/2023 7:06 AM STRAW HAT MACHINE OPERATOR FACTOR 10 CHROMOGENIC Add On 11/29/2023 3:06 AM STRAW HAT MACHINE OPERATOR OSMOLALITY BALDOMERO 11/29/2023 3:06 AM STRAW HAT MACHINE OPERATOR HEPARIN LEVEL Timed 11/29/2023 3:06 AM STRAW HAT MACHINE OPERATOR POTASSIUM Early AM 11/29/2023 3:06 AM STRAW HAT MACHINE OPERATOR CREATININE Early AM 11/29/2023 3:06 AM STRAW HAT MACHINE OPERATOR SODIUM Early AM 11/29/2023 3:06 AM STRAW HAT MACHINE OPERATOR HEMATOCRIT Early AM 11/29/2023 3:06 AM STRAW HAT MACHINE OPERATOR HEMOGLOBIN Early AM 11/29/2023 3:06 AM STRAW HAT MACHINE OPERATOR PLATELET COUNT Early AM 11/29/2023 3:06 AM STRAW HAT MACHINE OPERATOR LIPID PANEL BALDOMERO 04/12/2018 11:31 AM CDT XR MAMMO BILAT SCREEN FFDM (IA) Routine 10/11/2011 4:12 PM STRAW HAT MACHINE OPERATOR Screening breast examination from Last 3 Months or Most Recently Relevant to Health Maintenance Results * (ABNORMAL) FACTOR 10 CHROMOGENIC (12/24/2023 11:09 AM STRAW HAT MACHINE OPERATOR) Only the most recent of10 resultswithin the time period is included. Pathologist [facility] FACTOR 10 CHROMOGENIC 15(L) 65 - 130 % 12/24/2023 4:15 PM STRAW HAT MACHINE OPERATOR [facility] Blood BLOOD SPECIMEN / Unknown Client Collect / Unknown 12/24/2023 11:09 AM STRAW HAT MACHINE OPERATOR 12/24/2023 3:48 PM STRAW HAT MACHINE OPERATOR Narrative [facility] - 12/24/2023 4:15 PM STRAW HAT MACHINE OPERATOR Therapeutic Range 20-40% Victor M Kumar MD [facility] [address] [place] [address], * (ABNORMAL) CBC W PLT NO DIFF (12/12/2023 6:11 AM STRAW HAT MACHINE OPERATOR) WHITE BLOOD COUNT 5.0 4.5 - 11.0 thou/cu mm 12/12/2023 6:23 AM STRAW HAT MACHINE OPERATOR [facility] RED BLOOD COUNT 3.19(L) 4.00 - 5.20 mil/cu mm 12/12/2023 6:23 AM STRAW HAT MACHINE OPERATOR [facility] HEMOGLOBIN 8.8(L) 12.0 - 16.0 g/dL 12/12/2023 6:23 AM [facility] HEMATOCRIT 27.9(L) 33.0 - 51.0 % 12/12/2023 6:23 AM STRAW HAT MACHINE OPERATOR [facility] MCV 88 80 - 100 fL 12/12/2023 6:23 AM [facility] MCH 27.6 26.0 - 34.0 pg 12/12/2023 6:23 AM [facility] MCHC 31.5(L) 32.0 - 36.0 g/dL 12/12/2023 6:23 AM STRAW HAT MACHINE OPERATOR [facility] RDW 14.7 11.5 - 15.5 % 12/12/2023 6:23 AM [facility] PLATELET COUNT 97(L) 140 - 440 thou/cu mm 12/12/2023 6:23 AM [facility] MPV 9.7 6.5 - 11.0 fL 12/12/2023 6:23 AM STRAW HAT MACHINE OPERATOR [facility] NRBC 0.0 % 12/12/2023 6:23 AM [facility] ABS NRBC 0.0 thou /cu mm 12/12/2023 6:23 AM [facility] Blood BLOOD SPECIMEN / Unknown Venipuncture / Unknown 12/12/2023 6:11 AM STRAW HAT MACHINE OPERATOR 12/12/2023 6:15 AM STRAW HAT MACHINE OPERATOR Jennifer Wood NP HEMATOLOGY [facility] [address] [place] [address], * (ABNORMAL) PRO-BNP (12/12/2023 6:11 AM STRAW HAT MACHINE OPERATOR) Only the most recent of3 resultswithin the time period is included. PRO-BNP 3,197(H) <125 pg/mL 12/12/2023 7:01 AM STRAW HAT MACHINE OPERATOR [facility] Blood BLOOD SPECIMEN / Unknown Venipuncture / Unknown 12/12/2023 6:11 AM STRAW HAT MACHINE OPERATOR 12/12/2023 6:15 AM STRAW HAT MACHINE OPERATOR Narrative [facility] - 12/12/2023 7:01 AM STRAW HAT MACHINE OPERATOR The following cut-points have been suggested for the use of proBNP for the diagnostic evaluation of heart failure (HF) in patient with acute dyspnea. Patients with eGFR >= 60 Diagnosis (rule in CHF) ? <50 Years Old ?450 pg/mL 50 - 75 Years Old ?900 pg/mL >75 Years Old ? 1800 pg/mL Exclusion (rule out CHF) Age Independent ?300 pg/mL A cutoff of 1200 pg/mL for patients with an eGFR <60 yields a diagnostic sensitivity of 89% and specificity of 72% for acute congestive heart failure. ? Jennifer Wood NP [facility] [address] [place] [address], * (ABNORMAL) BASIC METABOLIC PANEL (12/12/2023 6:11 AM STRAW HAT MACHINE OPERATOR) Only the most recent of4 resultswithin the time period is included. SODIUM 137 136 - 145 mmol/L 12/12/2023 6:43 AM [facility] POTASSIUM 3.8 3.5 - 5.1 mmol/L 12/12/2023 6:43 AM [facility] CHLORIDE 104 98 - 107 mmol/L 12/12/2023 6:43 AM [facility] CO2,TOTAL 22 22 - 29 mmol/L 12/12/2023 6:43 AM [facility] ANION GAP 11 5 - 18 12/12/2023 6:43 AM [facility] GLUCOSE 89 70 - 99 mg/dL 12/12/2023 6:43 AM [facility] CALCIUM 8.7(L) 8.8 - 10.2 mg/dL 12/12/2023 6:43 AM [facility] BUN 15 8 - 23 mg/dL 12/12/2023 6:43 AM [facility] CREATININE 1.17(H) 0.50 - 0.90 mg/dL 12/12/2023 6:43 AM [facility] BUN/CREAT RATIO 13 10 - 20 6:43 AM [facility] eGFR 51(L) >90 mL/min/1.7 3m2 12/12/2023 6:43 AM [facility] Comment:As of 2022, eG FR is calculated by the CKD-EPI creatinine equation without race adjustment. ??eGFR can be influenced by muscle mass, exercise, and diet. ??The reported eGFR is an estimation only and is only applicable if the renal function is stable. Blood BLOOD SPECIMEN / Unknown Venipuncture / Unknown 12/12/2023 6:11 AM STRAW HAT MACHINE OPERATOR 12/12/2023 6:15 AM STRAW HAT MACHINE OPERATOR Jennifer Wood NP CHEMISTRY [facility] [address] [place] [address], * (ABNORMAL) TROPONIN T (HS) ONE TIME (12/06/2023 5:43 AM STRAW HAT MACHINE OPERATOR) TROPONIN T HS 66(H) 6-10 ng/L ng/L 12/06/2023 6:08 AM STRAW HAT MACHINE OPERATOR [facility] Blood BLOOD SPECIMEN / Unknown Butterfly / Unknown 12/06/2023 5:43 AM STRAW HAT MACHINE OPERATOR 12/06/2023 5:47 AM STRAW HAT MACHINE OPERATOR Johnny Shrestha MD CHEMISTRY Performing Organization Address City/[facility]/ZIP Co de Phone Number [facility] [address] [place] [address], * XR CHEST 1 VIEW PORTABLE (12/06/2023 3:47 AM STRAW HAT MACHINE OPERATOR) Anatomical Region Laterality Modality HEART, THORAX, CHEST Computed Ra diography 12/06/2023 3:47 AM STRAW HAT MACHINE OPERATOR Impressions 12/06/2023 3:51 AM STRAW HAT MACHINE OPERATOR Stable cardiomediastinal silhouette. Persistent but improved bilateral pulmonary infiltrates. Small left pleural effusion. Pleural opacity left mid chest could be loculated component of effusion. Follow-up to confirm resolution suggested. Remote rib fractures. Narrative 12/06/2023 3:51 AM STRAW HAT MACHINE OPERATOR For Patients: As a result of the 21st Century Cures Act, medical imaging exams and procedure reports are released immediately into your electronic medical record. You may view this report before your referring provider. If you have questions, please contact your health care provider. EXAM: XR CHEST 1 VIEW PORTABLE LOCATION: [facility] DATE: 12/06/2023 INDICATION: Eval Lung Infiltrate COMPARISON: 11/27/2023 Procedure Note Aracelis Barney MD - 12/06/2023 For Patients: As a result of the Cures Act, medical imagingexams and procedure reports are released immediately into your electronicmedical record. You may view this report before your referring provider.If you have questions, please contact your health care provider. EXAM: XR CHEST 1 VIEW PORTABLE LOCATION: [facility] DATE: 12/06/2023 INDICATION: Eval Lung Infiltrate COMPARISON: 11/27/2023 IMPRESSION: Stable cardiomediastinal silhouette. Persistent but improved bilateralpulmonary infiltrates. Small left pleural effusion. Pleural opacity leftmid chest could be loculated component of effusion. Follow-up to confirmresolution suggested. Remote rib fractures. Johnny Shrestha MD GENERAL IMAGING * (ABNORMAL) TROPONIN T (HS) ACUTE W/2HR REFLEX (12/06/2023 3:38 AM STRAW HAT MACHINE OPERATOR) TROPONIN T HS 64(H) 6-10 ng/L ng/L 12/06/2023 4:08 AM STRAW HAT MACHINE OPERATOR [facility] Blood BLOOD SPECIMEN / Unknown Butterfly / Unknown 12/06/2023 3:38 AM STRAW HAT MACHINE OPERATOR 12/06/2023 3:41 AM STRAW HAT MACHINE OPERATOR Narrative [facility] - 12/06/2023 4:08 AM STRAW HAT MACHINE OPERATOR hs-cTnT (Elecsys Troponin T Gen 5) concentration (s) above the sex-specific 99th percentile (16 ng/L or greater for males or 11 ng/L or greater for females) are indicative of myocardial injury. If initial hs-cTnT <=100 ng/L at presentation, a 0h/2h ABSOLUTE (ng/L) delta change (rising or falling) of >=10 ng/L suggests a significant change, whereas a 0h/2h delta change <=3 ng/L suggests no significant change. If initial hs-cTnT >100 ng/L at presentation, a 0h/2h/ RELATIVE (percent, %) delta change of 20% is suggested to distinguish patients with acute vs. chronic myocardial injury. There are multiple etiologies that can cause hs-cTnT increases above the 99th percentile (myocardial injury) other than acute myocardial infarction. Clinical context and careful clinical evaluation are critical for diagnosis and risk-stratification. The diagnosis of acute myocardial infarction requires a rising and/or falling pattern in hs-cTnT concentrations with at least one value above the sex-specific 99th percentile PLUS at least one of the following clinical criteria: ischemic symptoms, new or presumed new significant ST-T wave changes or new LBBB, development of pathological Q waves, imaging evidence of new loss of viable myocardium or new regional wall motion abnormality, or identification of intracoronary atherothrombosis or an acute angiographic culprit on coronary angiography. In appropriate low-risk patients with a non-ischemic electrocardiogram without active chest pain with a symptom onset >3-hours without recurrence, a single initial hs-cTnT<6 ng/L identifies patient with a very low risk in emergency department patient population. Johnny Shrestha MD CHEMISTRY [facility] [address] [place] [address], * (ABNORMAL) CBC WITH AUTO DIFFERENTIAL (12/06/2023 3:38 AM STRAW HAT MACHINE OPERATOR) WHITE BLOOD COUNT 4.3(L) 4.5 - 11.0 thou/cu mm 12/06/2023 3:49 AM STRAW HAT MACHINE OPERATOR [facility] RED BLOOD COUNT 3.02(L) 4.00 - 5.20 mil/cu mm 12/06/2023 3:49 AM STRAW HAT MACHINE OPERATOR [facility] HEMOGLOBIN 8.4(L) 12.0 - 16.0 g/dL 12/06/2023 3:49 AM STRAW HAT MACHINE OPERATOR [facility] HEMATOCRIT 27.7(L) 33.0 - 51.0 % 12/06/2023 3:49 AM STRAW HAT MACHINE OPERATOR [facility] MCV 92 80 - 100 fL 12/06/2023 3:49 AM STRAW HAT MACHINE OPERATOR [facility] MCH 27.8 26.0 - 34.0 pg 12/06/2023 3:49 AM [facility] MCHC 30.3(L) 32.0 - 36.0 g/dL 12/06/2023 3:49 AM STRAW HAT MACHINE OPERATOR [facility] RDW 15.8(H) 11.5 - 15.5 % 12/06/2023 3:49 AM [facility] PLATELET COUNT 81(L) 140 - 440 thou/cu mm 12/06/2023 3:49 AM [facility] MPV 10.3 6.5 - 11.0 fL 12/06/2023 3:49 AM STRAW HAT MACHINE OPERATOR [facility] NRBC 0.0 % 12/06/2023 3:49 AM [facility] ABS NRBC 0.0 thou /cu mm 12/06/2023 3:49 AM [facility] % NEUT 67.8 % 12/06/2023 3:49 AM [facility] % LYMPH 17.7 % 12/06/2023 3:49 AM STRAW HAT MACHINE OPERATOR [facility] % MONO 11.7 % 12/06/2023 3:49 AM [facility] % EOS 1.4 % 12/06/2023 3:49 AM STRAW HAT MACHINE OPERATOR [facility] % BASO 0.2 % 12/06/2023 3:49 AM [facility] % IMMATURE GRAN (METAS,MYELOS,SC OS) 1.2 % 12/06/2023 3:49 AM STRAW HAT MACHINE OPERATOR [facility] ABSOLUTE NEUTROPHILS 2.9 1.7 - 7.0 thou/cu mm 12/06/2023 3:49 AM STRAW HAT MACHINE OPERATOR [facility] ABSOLUTE LYMPHOCYTES 0.8(L) 0.9 - 2.9 thou/cu mm 12/06/2023 3:49 AM STRAW HAT MACHINE OPERATOR [facility] ABSOLUTE MONOCYTES 0.5 <0.9 thou/cu mm 12/06/2023 3:49 AM STRAW HAT MACHINE OPERATOR [facility] ABSOLUTE EOSINOPHILS 0.1 <0.5 thou/cu mm 12/06/2023 3:49 AM STRAW HAT MACHINE OPERATOR [facility] ABSOLUTE BASOPHILS 0.0 <0.3 thou/cu mm 12/06/2023 3:49 AM STRAW HAT MACHINE OPERATOR [facility] ABSOLUTE IMMATURE GRANULOCYTES(MET ,MYELOS,PROS) 0.1 <0.3 ou/cu mm 12/06/2023 3:49 AM STRAW HAT MACHINE OPERATOR [facility] Blood BLOOD SPECIMEN / Unknown Butterfly / Unknown 12/06/2023 3:38 AM STRAW HAT MACHINE OPERATOR 12/06/2023 3:41 AM STRAW HAT MACHINE OPERATOR Johnny Shrestha MD HEMATOLOGY [facility] [address] [place] [address], * (ABNORMAL) PROTIME-INR (12/06/2023 3:38 AM STRAW HAT MACHINE OPERATOR) INR 4.5(H) <1.3 12/06/2023 3:49 AM STRAW HAT MACHINE OPERATOR [facility] PROTIME 48.2(H) 10.3 - 12.3 sec 12/06/2023 3:49 AM STRAW HAT MACHINE OPERATOR [facility] Blood BLOOD SPECIMEN / Unknown Butterfly / Unknown 12/06/2023 3:38 AM STRAW HAT MACHINE OPERATOR 12/06/2023 3:41 AM STRAW HAT MACHINE OPERATOR Narrative [facility] - 12/06/2023 3:49 AM STRAW HAT MACHINE OPERATOR ?Therapeutic Range 2.0-3.0 for most anticoagulated patients 2.5-3.5 or 4.0 for high risk patients The INR is only used for patients on stable oral anticoagulant therapy. It makes no significant contribution to the diagnosis or treatment of patients whose Protime is prolonged for other reasons. INR results are increased when heparin levels exceed 1.0 U/mL, which corresponds to an aPTT >125 seconds if the patient is on UFH. Johnny Shrestha MD HEMATOLOGY [facility] [place] [address], * EKG 12 LEAD (12/06/2023 3:32 AM STRAW HAT MACHINE OPERATOR) Only the most recent of2 resultswithin the time period is included. Interpretation Sinus rhythm with Premature atrial complexes Low voltage QRS Borderline ECG When compared with ECG of 01-DEC-2023 12:40, Premature atrial complexes are now Present SC interval has decreased BEYOND NOW Ventricular Rate 62 BPM BEYOND NOW Atrial Rate 62 BPM BEYOND NOW P-R Interval 196 ms BEYOND NOW QRS Duration 78 ms BEYOND NOW QT 464 ms BEYOND NOW QTc 470 ms BEYOND NOW P [place] degrees BEYOND NOW R [place] 17 degrees BEYOND NOW T [place] 25 degrees BEYOND NOW 12/06/2023 3:32 AM STRAW HAT MACHINE OPERATOR 12/06/2023 4:14 PM STRAW HAT MACHINE OPERATOR Narrative [facility] NOW - 12/06/2023 4:14 PM STRAW HAT MACHINE OPERATOR Test Indication: SOB Johnny Shrestha MD EKG ORD [facility] NOW [place], [place] * HEPARIN LEVEL (12/04/2023 7:05 AM STRAW HAT MACHINE OPERATOR) Only the most recent of8 resultswithin the time period is included. HEPARIN LEVEL 0.17 See Comment U/mL 12/04/2023 7:32 AM [facility] Blood BLOOD SPECIMEN / Unknown Venipuncture / Unknown 12/04/2023 7:05 AM STRAW HAT MACHINE OPERATOR 12/04/2023 7:14 AM STRAW HAT MACHINE OPERATOR Narrative [facility] - 12/04/2023 7:32 AM STRAW HAT MACHINE OPERATOR UFH IV Infusion Therapeutic VTE: 0.3 - 0.7 U/mL UFH IV Infusion Therapeutic AF/Valve Bridgin.3 - 0.5 U/mL UFH IV Infusion Therapeutic ACS: 0.3 - 0.5 U/mL UFH IV Infusion Therapeutic High Bleeding Risk: 0.3 - 0.5 U/mL UFH IV Infusion Prophylactic: 0.11 - 0.29 U/mL UFH SubQ Therapeutic: 0.56 - 0.68 U/mL UFH SubQ Prophylactic: 0.15 - 0.25 U/mL Critical: >1.00 U/mL Gareth Gregory MD HEMATOLOGY Performing Organization Address [facility] de Phone Number [facility] [address] [place] [address], [place] * (ABNORMAL) PLATELET COUNT (12/04/2023 7:05 AM STRAW HAT MACHINE OPERATOR) Only the most recent of6 resultswithin the time period is included. [facility] PLATELET COUNT 73(L) 140 - 440 thou/cu mm 12/04/2023 7:34 AM [facility] MPV 11.1(H) 6.5 - 11.0 fL 12/04/2023 7:34 AM [facility] Blood BLOOD SPECIMEN / Unknown Venipuncture / Unknown 12/04/2023 7:05 AM STRAW HAT MACHINE OPERATOR 12/04/2023 7:14 AM STRAW HAT MACHINE OPERATOR Narrative [facility] - 12/04/2023 7:34 AM STRAW HAT MACHINE OPERATOR Every morning while on IV heparin. Every morning while on IV heparin. Necessary every morning while on IV heparin. Corinne Bradley MD HEMATOLOGY Performing Organization Address [facility] Co de Phone Number [facility] [address] [phone], [place] * (ABNORMAL) HEMOGLOBIN (12/04/2023 7:05 AM STRAW HAT MACHINE OPERATOR) Only the most recent of6 resultswithin the time period is included. HEMOGLOBIN 7.7(L) 12.0 - 16.0 g/dL 12/04/2023 7:34 AM STRAW HAT MACHINE OPERATOR [facility] MCV 90 80 - 100 fL 12/04/2023 7:34 AM STRAW HAT MACHINE OPERATOR [facility] Blood BLOOD SPECIMEN / Unknown Venipuncture / Unknown 12/04/2023 7:05 AM STRAW HAT MACHINE OPERATOR 12/04/2023 7:14 AM STRAW HAT MACHINE OPERATOR [facility]AT[facility] - 12/04/2023 7:34 AM STRAW HAT MACHINE OPERATOR Every morning while on IV heparin. Every morning while on IV heparin. Necessary every morning while on IV heparin. Corinne Bradley MD HEMATOLOGY Performing Organization Address [facility] Co de Phone Number [facility] [address] [place] [address], [place] * (ABNORMAL) HEMATOCRIT (12/04/2023 7:05 AM STRAW HAT MACHINE OPERATOR) Only the most recent of6 resultswithin the time period is included. [facility] HEMATOCRIT 24.6(L) 33.0 - 51.0 % 12/04/2023 7:34 AM STRAW HAT MACHINE OPERATOR [facility] Blood BLOOD SPECIMEN / Unknown Venipuncture / Unknown 12/04/2023 7:05 AM STRAW HAT MACHINE OPERATOR 12/04/2023 7:14 AM STRAW HAT MACHINE OPERATOR [facility]ORY - 12/04/2023 7:34 AM STRAW HAT MACHINE OPERATOR Every morning while on IV heparin. Every morning while on IV heparin. Necessary every morning while on IV heparin. Corinne Bradley MD HEMATOLOGY Performing Organization Address City/[facility]/ZIP Co de Phone Number [facility] [address] [place] [id number], [place] * GLUCOSE METER (12/04/2023 6:39 AM STRAW HAT MACHINE OPERATOR) Only the most recent of25 resultswithin the time period is included. GLUCOSE METER 83 65 - 100 mg/dL 12/04/2023 6:40 AM STRAW HAT MACHINE OPERATOR [facility] Blood BLOOD SPECIMEN / Unknown 12/04/2023 6:39 AM STRAW HAT MACHINE OPERATOR 12/04/2023 6:40 AM STRAW HAT MACHINE OPERATOR Gareth Gregory MD CHEMISTRY Performing Organization Address City/[facility]/ZIP Co de Phone Number [facility] [address] [place] [address], [place] * (ABNORMAL) APTT (12/03/2023 5:02 AM STRAW HAT MACHINE OPERATOR) APTT 74(H) 29 - 36 sec 12/03/2023 5:41 AM STRAW HAT MACHINE OPERATOR [facility] Blood BLOOD SPECIMEN / Unknown Venipuncture / Unknown 12/03/2023 5:02 AM STRAW HAT MACHINE OPERATOR 12/03/2023 5:28 AM STRAW HAT MACHINE OPERATOR Narrative [facility] - 12/03/2023 5:41 AM STRAW HAT MACHINE OPERATOR Therapeutic Range: 57-100 seconds Juan Alberto BENITEZ HEMATOLOGY Performing Organization Address [facility] Co de Phone Number [facility] [address] [place] [address], [place] * (ABNORMAL) Sodium AM (12/01/2023 7:00 AM STRAW HAT MACHINE OPERATOR) Only the most recent of3 resultswithin the time period is included. SODIUM 131(L) 136 - 145 mmol/L 12/01/2023 8:11 AM STRAW HAT MACHINE OPERATOR [facility] Blood BLOOD SPECIMEN / Unknown Venipuncture / Unknown 12/01/2023 7:00 AM STRAW HAT MACHINE OPERATOR 12/01/2023 7:41 AM STRAW HAT MACHINE OPERATOR Corinne Bradley MD CHEMISTRY Performing Organization Address City/[facility] Co de Phone Number [facility] [address] [place] [address], [place] * (ABNORMAL) Creatinine AM (12/01/2023 7:00 AM STRAW HAT MACHINE OPERATOR) Only the most recent of3 resultswithin the time period is included. eGFR 32(L) >90 mL/min/1.7 3m2 12/01/2023 8:11 AM STRAW HAT MACHINE OPERATOR [facility] Comment:As of 2022, eG FR is calculated by the CKD-EPI creatinine equation without race adjustment. ??eGFR can be influenced by muscle mass, exercise, and diet. ??The reported eGFR is an estimation only and is only applicable if the renal function is stable. CREATININE 1.71(H) 0.50 - 0.90 mg/dL 12/01/2023 8:11 AM STRAW HAT MACHINE OPERATOR [facility] Blood BLOOD SPECIMEN / Unknown Venipuncture / Unknown 12/01/2023 7:00 AM STRAW HAT MACHINE OPERATOR 12/01/2023 7:41 AM STRAW HAT MACHINE OPERATOR Corinne Bradley MD CHEMISTRY Performing Organization Address City/[facility]/ZIP Co de Phone Number [facility] [address] [address], [place] * (ABNORMAL) PLATELET ESTIMATE (11/30/2023 7:50 AM STRAW HAT MACHINE OPERATOR) Pathologist [facility] PLATELET ESTIMATE Decreased (A) Adequate, No estimate 11/30/2023 9:11 AM STRAW HAT MACHINE OPERATOR [facility] Blood BLOOD SPECIMEN / Unknown Butterfly / Unknown 11/30/2023 7:50 AM STRAW HAT MACHINE OPERATOR 11/30/2023 8:05 AM STRAW HAT MACHINE OPERATOR Narrative [facility] - 11/30/2023 9:11 AM STRAW HAT MACHINE OPERATOR Every morning while on IV heparin. Corinne Bradley MD HEMATOLOGY Performing Organization Address City/[facility]/ZIP Co de Phone Number [facility] [address] [place] [address], [place] * Potassium AM (11/30/2023 7:50 AM STRAW HAT MACHINE OPERATOR) Only the most recent of2 resultswithin the time period is included. Pathologist [facility] POTASSIUM 4.5 3.5 - 5.1 mmol/L 11/30/2023 8:54 AM STRAW HAT MACHINE OPERATOR [facility] Blood BLOOD SPECIMEN / Unknown Butterfly / Unknown 11/30/2023 7:50 AM STRAW HAT MACHINE OPERATOR 11/30/2023 8:08 AM STRAW HAT MACHINE OPERATOR Corinne Bradley MD CHEMISTRY [facility] [address] [place] [address], [place] * SCAN-SLEEP STUDY (11/30/2023 12:00 AM STRAW HAT MACHINE OPERATOR) Narrative 11/30/2023 12:00 AM STRAW HAT MACHINE OPERATOR Ordered by an unspecified provider. Other Clinical Staff OTHER * XR ABDOMEN 1 VIEW PORTABLE (11/29/2023 2:26 PM STRAW HAT MACHINE OPERATOR) Anatomical Region Laterality Modality Abdomen Digital Radiogra phy 11/30/2023 1:32 AM STRAW HAT MACHINE OPERATOR Narrative 11/30/2023 1:32 AM STRAW HAT MACHINE OPERATOR For Patients: ??As a result of the Cures Act, medical imaging exams and procedure reports are released immediately into your electronic medical record. ??You may view this report before your referring provider. ??If you have questions, please contact your health care provider. Indication: Abdominal pain. Abnormal bowel function. Technique: Abdomen 2 view. Comparison: November 21, 2023. Findings: Bowel: Bowel pattern is normal. The amount of colonic stool is within normal limits. Other: No sign of free air. ??No sign of soft tissue mass. ??No suspicious calcifications. Osseous structures are unremarkable for age. ?? Impression: Unremarkable abdomen. Dictated by Leroy Taveras MD @ Nov ??2 2023 ??1:32AM (Electronically Signed) ?? Procedure Note Leroy Taveras MD - 11/30/2023 For Patients: As a result of the Cures Act, medical imagingexams and procedure reports are released immediately into your electronicmedical record. You may view this report before your referring provider.If you have questions, please contact your health care provider. Indication: Abdominal pain. Abnormal bowel function. Technique: Abdomen 2 view. Comparison: November 21, 2023. Findings: Bowel: Bowel pattern is normal. The amount of colonic stool is withinnormal limits. Other: No sign of free air. No sign of soft tissue mass. No suspiciouscalcifications. Osseous structures are unremarkable for age. Impression: Unremarkable abdomen. Dictated by Leroy Taveras MD @ Nov 30 2023 1:32AM (Electronically Signed) Corinne Bradley MD GENERAL IMAGING * Sodium, urine TODAY (11/29/2023 10:36 AM STRAW HAT MACHINE OPERATOR) SODIUM,RANDOM URINE <20 mmol/L 11/29/2023 2:47 PM STRAW HAT MACHINE OPERATOR [facility] Comment:No Reference Range D efined. Urine URINE SPECIMEN / Unknown Non-Blood / Unknown 11/29/2023 10:36 AM STRAW HAT MACHINE OPERATOR 11/29/2023 10:47 AM STRAW HAT MACHINE OPERATOR Corinne Bradley MD URINE [facility] [address] [place], [place] [id number], [place] * Osmolality, urine TODAY (11/29/2023 10:36 AM STRAW HAT MACHINE OPERATOR) OSMOLALITY,URI NE 262 50 - 1,400 mOsmol/kg 11/29/2023 11:02 AM STRAW HAT MACHINE OPERATOR [facility] Urine URINE SPECIMEN / Unknown Non-Blood / Unknown 11/29/2023 10:36 AM STRAW HAT MACHINE OPERATOR 11/29/2023 10:47 AM STRAW HAT MACHINE OPERATOR Corinne Bradley MD URINE [facility] [address] [place] [address], [place] * Osmolality, serum TODAY (11/29/2023 3:06 AM STRAW HAT MACHINE OPERATOR) OSMOLALITY 284 275 - 300 mOsmol/kg 11/29/2023 10:26 AM STRAW HAT MACHINE OPERATOR [facility] Blood BLOOD SPECIMEN / Unknown Venipuncture / Unknown 11/29/2023 3:06 AM STRAW HAT MACHINE OPERATOR 11/29/2023 3:24 AM STRAW HAT MACHINE OPERATOR Corinne Bradley MD CHEMISTRY [facility] [address] [place] [address], * (ABNORMAL) Lipid Panel - Fasting (04/12/2018 11:31 AM CDT) CHOLESTEROL,TOTAL 139 100 - 199 mg/dL 04/12/2018 1:39 PM CDT [facility] TRIGLYCERIDES 282(H) <150 mg/dL 04/12/2018 1:39 PM CDT [facility] HDL CHOLESTEROL 37(L) >40 mg/dL 8 1:39 PM CDT [facility] NON-HDL CHOLESTEROL 102 <145 mg/dl 04/12/2018 1:39 PM T [facility] CHOL/HDL RATIO 3.76 <4.50 04/12/2018 1:39 PM T [facility] LDL CHOLESTEROL 46 <=130 mg/dL 04/12/2018 1:39 PM T [facility] PROVIDER ORDERED STATUS RANDOM 04/12/2018 1:39 PM T [facility] Blood BLOOD SPECIMEN / Unknown Venipuncture / Unknown 04/12/2018 11:31 AM CDT 04/12/2018 11:36 AM CDT Antonio Rodríguez MD CHEMISTRY [facility] [employer] INTERNAL ZIP [address] [place] [id number] * XR MAMMO BILAT SCREEN FFDM (10/11/2011 4:12 PM STRAW HAT MACHINE OPERATOR) Anatomical Region Laterality Modality BREASTS, Breast Left, Breast Right Bilateral Mammography Impressions 10/12/2011 8:25 AM STRAW HAT MACHINE OPERATOR ??There is no radiographic evidence for malignancy. ??Recommend annual mammograms. A lay language report of this examination will be provided to the patient. MAMMOGRAM ASSESSMENT: ??ACR 1 Negative Narrative 10/12/2011 8:25 AM STRAW HAT MACHINE OPERATOR XR MAMMO BILAT SCREEN FFDM [G0202.0] CLINICAL HISTORY: ??This is an asymptomatic 55 y.o. patient. INDICATION FOR EXAM: Mammogram Screening. TECHNIQUE: CC & MLO views were obtained. ??This digital study was evaluated with the assistance of Computer-Aided Detection. ?? COMPARISON FILM: Priors not available at the time of this report. FINDINGS: ??Mammographically, the breast tissue is heterogeneously dense, which could obscure detection of small masses (approximately 51% - 75% glandular). ??There are no dominant masses, suspicious micro calcifications or areas of architectural distortion. Procedure Note Camilla Bro MD - 10/12/2011 XR MAMMO BILAT SCREEN FFDM [G0202.0] CLINICAL HISTORY: This is an asymptomatic 55 y.o. patient. INDICATION FOR EXAM: Mammogram Screening. TECHNIQUE: CC & MLO views were obtained. This digital study was evaluatedwith the assistance of Computer-Aided Detection. COMPARISON FILM: Priors not available at the time of this report. FINDINGS: Mammographically, the breast tissue is heterogeneously dense,which could obscure detection of small masses (approximately 51% - 75%glandular). There are no dominant masses, suspicious micro calcificationsor areas of architectural distortion. IMPRESSION: There is no radiographic evidence for malignancy. Recommendannual mammograms. A lay language report of this examination will be provided to the patient. MAMMOGRAM ASSESSMENT: ACR 1 Negative Marielos Tariq MD MAMM O from Last 3 Months or Most Recently Relevant to Health Maintenance Advance Directives * Full Code (Latest Code Status on File) Date Activated Date Inactivated Comments 11/11/2023 5:33 PM 12/04/2023 12:55 PM Question Answer Comments Code Status Discussion: Reviewed Preferences * Full Code Date Activated Date Inactivated Comments 11/09/2023 5:20 PM 11/11/2023 5:33 PM Question Answer Comments Code Status Discussion: Unable to Assess Preferences, Provider to review later * Full Code Date Activated Date Inactivated Comments 02/22/2021 2:15 PM 02/25/2021 4:14 PM Question Answer Comments Code Status Discussion: Not Discussed * Full Code Date Activated Date Inactivated Comments 04/12/2018 1:04 PM 04/17/2018 2:50 PM * Full Code Date Activated Date Inactivated Comments 09/30/2011 3:50 PM 10/03/2011 6:40 PM Care Teams [employer] Relationship Specialty Start Date End Date Victor M Kumar MD [address] [place] [address] PCP - General Emergency Medicine 11/01/16 Aldo Arizmendi COTA [address] [place] [address] [phone] Occupational Therapy 12/06/23
== END 2024-02-27 09:02 | disposition home or self-care (01) ==
PROVIDERS: PCP Internal Medicine; Visit Provider Internal Medicine
DX: D68.59 Other primary thrombophilia (principal); Z13.220 Encounter for screening for lipoid disorders
CPT/HCPCS: 80061; 85130; 85610

== ENCOUNTER 2024-03-28 16:56 | Emergency (ER) | payer OTHER, SELFPAY ==
[2024-03-28 17:02] VITALS: BP 181/81; PULSE 81; RESP 18; TEMP 36.8; O2SAT 99; BMI 23.0
--- NOTE | 2024-03-28 17:15 | CRLHL7_ITS ---
For Patients: As a result of the Century Cures Act, medical imaging exams and procedure reports are released immediately into your electronic medical record. You may view this report before your referring provider. If you have questions, please contact your health care provider. Indication : Headaches. Technique : CT of the brain without intravenous contrast. Comparison: None relevant available at the time of interpretation. Findings: No acute blurring of the hodges-white differentiation. There is no intracranial hemorrhage. The ventricles are proportionate to the cerebral sulci. The 4th ventricle is midline. Basal cisterns appear patent. No abnormal extra-axial fluid collection identified. Moderate parenchymal volume loss. There is moderate patchy periventricular hypodensity, favored to represent chronic ischemic microvascular disease. Moderate size chronic left parietal infarct. There is no intracranial mass, mass effect or midline shift identified. No depressed calvarial fracture. Impression: 1. No acute intracranial process. 2. Moderate chronic ischemic microvascular disease. 3. Chronic left parietal infarct. Please note that all CT scans at this facility use dose modulation, iterative reconstruction, and/or weight-based dosing when appropriate to reduce radiation dose to as low as reasonably achievable. Dictated by Cory Landa MD @ 03/28/2024 6:14:57 PM (Electronically Signed)
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
--- OUTSIDE RECORDS SUMMARY | 2024-03-28 17:44 | XMS_ITS | Clinical Summary ---
Author Organization [facility] Address [place], [place] [address] Care Team Providers Care Paper Handler Name Role Phone Victor M Kumar MD Primary Care Provider Aldo Arizmendi Unavailable [phone] Allergies Active Allergy Reactions Criticality Noted Date [...] sprayIndications:all ergic conjunctivitis,aller gic rhinitis Inhale 1 [place] into both nostrils once daily. 1 Bottle [...] TIA or mul tiple small biswas at [facility] 200810/27/2009 Overview: History of TIA or multiple small biswas at [facility] 2008 Renal Insufficiency 11/09/2010 cr = [...] (right B KA) 08/12/2009 Overview: Last A1c: 8. a system change updated this record. This [...] 08/25/2005 Overview: 2003. s/p 2 stents. Overview: FL followed by stent placement Problem list name updated by automated process. Provider to review Anxiety state 10/17/2004 Overview: Overview: Problem list name updated by automated process. Provider to review Overview: LW Modifier: Flight anxiety LW Onset: [id number] ; Anxiety NOS Tobacco use disorder 10/17/2004 Overview: Overview: LW Modifier: quit 08/2004 LW Onset: [id number] ; Tobacco Abuse Resolved Problems Problem Noted [...] Encounters Date Type Department Care Team Description 02/27/2024 Lab Requisition [facility] [phone] Victor M Kumar MD 01/01/2024 Telephone [facility] [address] [place] [address] Clinic, Asct Tcu Inr Anticoagulation (Chart update) from Last 3 Months Immunizations Name Administration Dates Next Due COVID-19 vaccine (CallmyName-Bio NTech 30mcg/0.3mL) RENEA MICHEL 01/15/2021,12/24/2020 Influenza RIV4 [...] Comments Blood Pressure 144/60 12/06/2023 9:00 AM SATELLITE TELEVISION INSTALLER Pulse 59 12/06/2023 10:00 AM SATELLITE TELEVISION INSTALLER Temperature 36.9 ??C (98.5 ??F) 12/06/2023 3:27 AM CS T Respiratory Rate 21 12/06/2023 10:00 AM SATELLITE TELEVISION INSTALLER Oxygen Saturation 95% 12/06/2023 10:00 AM SATELLITE TELEVISION INSTALLER Inhaled Oxygen Concentration - - Weight 85.3 kg (188 lb) 12/06/2023 3:24 AM SATELLITE TELEVISION INSTALLER Height 177.8 cm (5' 10) 12/06/2023 3:24 AM SATELLITE TELEVISION INSTALLER Body Mass Index 26.98 12/06/2023 3:24 AM SATELLITE TELEVISION INSTALLER Plan of Treatment Health Maintenance Due Date Last Done Comments Depression screening for age 12+ 1967 Hepatitis C screening for ag e 18-79 1973 Mammogram for age 45-75 10/11/2012 10/11/2011 Colonoscopy through age 75 11/17/201511/17 (Completed outside of [facility]), 10/29/2005 (Completed outside of [facility]) BMI (ht and wt on same day) [...] Associated Diagnosis Comments FACTOR 10 CHROMOGENIC Routine 02/27/2024 9:16 AM CDT LIPID PANEL [place]DOM[place] 04/12/2018 11:31 AM CDT XR MAMMO BILAT SCREEN FFDM (IA) Routine 10/11/2011 4:12 PM SATELLITE TELEVISION INSTALLER Screening breast examination from Last 3 Months or Most Recently Relevant to Health Maintenance Results * (ABNORMAL) FACTOR 10 CHROMOGENIC (02/27/2024 9:16 AM CDT) FACTOR 10 CHROMOGENIC 16(L) 65 - 130 % 02/27/2024 4:03 PM CDT [facility] Blood BLOOD SPECIMEN / Unknown Client Collect / Unknown 02/27/2024 9:16 AM CDT 02/27/2024 3:46 PM CDT Narrative [facility] - 02/27/2024 4:03 PM CDT Therapeutic Range 20-40% Victor M Kumar MD [facility] [address] [place] [address], * (ABNORMAL) Lipid Panel - Fasting (04/12/2018 11:31 AM CDT) Pathologist [facility] CHOLESTEROL,TOTAL 139 100 - 199 mg/dL 04/12/2018 1:39 PM T [facility] TRIGLYCERIDES 282(H) <150 mg/dL 04/12/2018 1:39 PM T [facility] HDL CHOLESTEROL 37(L) >40 mg/dL 8 1:39 PM T [facility] NON-HDL CHOLESTEROL 102 <145 mg/dl 04/12/2018 1:39 PM T [facility] CHOL/HDL RATIO 3.76 <4.50 04/12/2018 1:39 PM T [facility] LDL CHOLESTEROL 46 <=130 mg/dL 04/12/2018 1:39 PM T [facility] PROVIDER ORDERED STATUS RANDOM 04/12/2018 1:39 PM T [facility] Blood BLOOD SPECIMEN / Unknown Venipuncture / Unknown 04/12/2018 11:31 AM CDT 04/12/2018 11:36 AM CDT Antonio Rodríguez MD CHEMISTRY [facility] SENDOUT INTERNAL ZIP [id number] [place] [id number] * XR MAMMO BILAT SCREEN FFDM (10/11/2011 4:12 PM SATELLITE TELEVISION INSTALLER) Anatomical Region Laterality Modality BREASTS, Breast Left, Breast Right Bilateral Mammography Impressions 10/12/2011 8:25 AM SATELLITE TELEVISION INSTALLER ??There is no radiographic evidence for malignancy. ??Recommend annual mammograms. A lay language report of this examination will be provided to the patient. MAMMOGRAM ASSESSMENT: ??ACR 1 Negative Narrative 10/12/2011 8:25 AM SATELLITE TELEVISION INSTALLER XR MAMMO BILAT SCREEN FFDM [G0202.0] CLINICAL [...] 3:50 PM 10/03/2011 6:40 PM Care Teams Paper Handler Relationship Specialty Start Date End Date Victor M Kumar MD [address] [place] [address] PCP - General Emergency Medicine 11/01/16 Aldo Arizmendi COTA [address] [place], [place] [id number] Occupational Therapy 12/06/23
[2024-03-28] MEDS: LORazepam 2 MG/ML inj 1 MG IVP (18:24)
[2024-03-28 18:35] VITALS: BP 219/114
[2024-03-28 18:42] VITALS: PULSE 102; O2SAT 100
--- NOTE | 2024-03-28 18:46 | ED.NURSE ---
BP 219/114, this was rechecked and still elevated. Patient also feeling nauseous with dry hives. MD notified of BP and nausea, Zofran ordered and administered.
[2024-03-28] MEDS: ONDANSETRON 2 MG/ML inj 4 MG IVP (18:48)
[2024-03-28 19:00] VITALS: PULSE 85; O2SAT 98
[2024-03-28 19:03] VITALS: BP 182/104; PULSE 85; O2SAT 99
[2024-03-28 19:24] VITALS: BP 176/98; PULSE 85; O2SAT 100
== END 2024-03-28 19:39 | disposition home or self-care (01) ==
PROVIDERS: Emergency Provider Emergency Medicine; PCP Internal Medicine
DX: R51.9 Headache, unspecified (principal)
CPT/HCPCS: 70450; 96374; 96375; 99283; 99284; J2060; J2405; J3490

== ENCOUNTER 2024-03-30 13:32 | Emergency (ER) | payer OTHER, SELFPAY ==
[2024-03-30] VITALS (14 sets, daily range): BP systolic 127–181; BP diastolic 77–98; PULSE 79–90; RESP 16–18; TEMP 36.9; O2SAT 96–100; BMI 23.0
--- OUTSIDE RECORDS SUMMARY | 2024-03-30 13:34 | XMS_ITS | Clinical Summary ---
Author Organization [facility] Address [address] Care Team Providers Care Digital Marketing Strategist Name Role Phone Victor M Kumar MD Primary Care Provider Aldo Arizmendi Unavailable [phone] Allergies Active Allergy Reactions Criticality Noted Date [...] sprayIndications:all ergic conjunctivitis,aller gic rhinitis Inhale 1 [place] into both nostrils once daily. 1 Bottle [...] TIA or mul tiple small biswas at [facility] 200810/27/2009 Overview: History of TIA or multiple small biswas at [facility] 2008 Renal Insufficiency 11/09/2010 cr = 1.43* [...] 08/25/2005 Overview: 2003. s/p 2 stents. Overview: NM followed by stent placement Problem list name updated by automated process. Provider to review Anxiety state 10/17/2004 Overview: Overview: Problem list name updated by automated process. Provider to review Overview: LW Modifier: Flight anxiety LW Onset: [id number] ; Anxiety NOS Tobacco use disorder 10/17/2004 Overview: Overview: LW Modifier: quit 08/2004 LW Onset: [id number] ; Tobacco Abuse Resolved Problems Problem Noted [...] Department Care Team Description 02/27/2024 Lab Requisition [facility] [phone] Victor M Kumar MD 01/01/2024 Telephone Anpro21 [facility] [address] [place] [address] Clinic, Asct Tcu Inr Anticoagulation (Chart update) from Last 3 Months Immunizations Name Administration Dates Next Due COVID-19 vaccine ([email or web address] 30mcg/0.3mL) RENEA MICHEL 01/15/2021,12/24/2020 Influenza RIV4 [...] Comments Blood Pressure 144/60 12/06/2023 9:00 AM [facility] Pulse 59 12/06/2023 10:00 AM [facility] Temperature 36.9 ??C (98.5 ??F) 12/06/2023 3:27 AM CS T Respiratory Rate 21 12/06/2023 10:00 AM [facility] Oxygen Saturation 95% 12/06/2023 10:00 AM [facility] Inhaled Oxygen Concentration - - Weight 85.3 kg (188 lb) 12/06/2023 3:24 AM [facility] Height 177.8 cm (5' 10) 12/06/2023 3:24 AM [facility] Body Mass Index 26.98 12/06/2023 3:24 AM [facility] Plan of Treatment Health Maintenance Due Date Last Done Comments Depression screening for age 12+ 1967 Hepatitis C screening for ag e 18-79 1973 Mammogram for age 45-75 10/11/2012 10/11/2011 Colonoscopy through age 75 11/17/201511/17 (Completed outside of [facility]), 10/29/2005 (Completed outside of [facility]) BMI (ht and wt on same day) [...] SCREEN FFDM (IA) Routine 10/11/2011 4:12 PM [facility] Screening breast examination from Last 3 Months or Most Recently Relevant to Health Maintenance Results * (ABNORMAL) FACTOR 10 CHROMOGENIC (02/27/2024 9:16 AM CDT) FACTOR 10 CHROMOGENIC 16(L) 65 - 130 % 02/27/2024 4:03 PM CDT [facility] Blood BLOOD SPECIMEN / Unknown Client Collect / Unknown 02/27/2024 9:16 AM CDT 02/27/2024 3:46 PM CDT Narrative [facility] - 02/27/2024 4:03 PM CDT Therapeutic Range 20-40% Victor M Kumar MD [facility] [address] [place] [address], * (ABNORMAL) Lipid Panel - Fasting (04/12/2018 11:31 AM CDT) Pathologist [facility] CHOLESTEROL,TOTAL 139 100 - 199 mg/dL 04/12/2018 1:39 PM T [facility] TRIGLYCERIDES 282(H) <150 mg/dL 04/12/2018 1:39 PM T [facility] HDL CHOLESTEROL 37(L) >40 mg/dL 8 1:39 PM T [facility] NON-HDL CHOLESTEROL 102 <145 mg/dl 04/12/2018 1:39 PM T [facility] CHOL/HDL RATIO 3.76 <4.50 04/12/2018 1:39 PM T [facility] LDL CHOLESTEROL 46 <=130 mg/dL 04/12/2018 1:39 PM T [facility] PROVIDER ORDERED STATUS RANDOM 04/12/2018 1:39 PM T [facility] Blood BLOOD SPECIMEN / Unknown Venipuncture / Unknown 04/12/2018 11:31 AM CDT 04/12/2018 11:36 AM CDT Antonio Rodríguez MD CHEMISTRY [facility] SENDOUT INTERNAL ZIP [id number] [place] [id number] * XR MAMMO BILAT SCREEN FFDM (10/11/2011 4:12 PM [facility]) Anatomical Region Laterality Modality BREASTS, Breast Left, Breast Right Bilateral Mammography Impressions 10/12/2011 8:25 AM [facility] ??There is no radiographic evidence for malignancy. ??Recommend annual mammograms. A lay language report of this examination will be provided to the patient. MAMMOGRAM ASSESSMENT: ??ACR 1 Negative Narrative 10/12/2011 8:25 AM [facility] XR MAMMO BILAT SCREEN FFDM [G0202.0] CLINICAL [...] 3:50 PM 10/03/2011 6:40 PM Care Teams Digital Marketing Strategist Relationship Specialty Start Date End Date Victor M Kumar MD [address] [place] [address] PCP - General Emergency Medicine 11/01/16 Aldo Arizmendi [facility] [address] [place], [place] [id number] Occupational Therapy 12/06/23
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
--- NOTE | 2024-03-30 14:19 | CT_ITS ---
Patient: JESSIE MORA Facility:?[facility] Patient ID:?[id number] Site Patient ID:?[id number]. Site :?[id number] Study:?CT-Neck Angio -03/30/2024 4:24:11 PM Ordering Physician:Wendy Ingram Final Report: DATE: 03/30/2024 CLINICAL HISTORY: Patient with headache, subdural hemorrhages. TECHNIQUE: Standard helical CT image acquisition of the neck up to the skull base after bolus intravenous contrast enhancement. 2D and 3D MIP images for post-processing were performed and interpreted on an independent workstation and 3D images were permanently archived. COMPARISON: None. FINDINGS: The origins of the great vessels from the aortic arch are patent. The origin of the right vertebral artery demonstrates mild narrowing. The origin of the left vertebral artery demonstrates mild narrowing. The common carotid arteries are patent. There is plaque without stenosis at the origin of the right internal carotid artery by NASCET criteria. There is a mild (<50%) stenosis at the origin of the left internal carotid artery by NASCET criteria. This is caused by calcified plaque with a <2mm residual lumen. The rest of the cervical segments of the internal carotid arteries are patent up to the skull base. The left vertebral artery is dominant. The cervical segments of the vertebral arteries are patent up to the skull base. The visualized lung apices are unremarkable. The thyroid gland is unremarkable. The soft tissues of the neck are unremarkable. There are degenerative changes in the cervical spine. IMPRESSION: 1. Mild (<50%) stenosis at the origin of the left internal carotid artery by NASCET criteria. This is caused by calcified plaque with a <2mm residual lumen. 2. Mild bilateral vertebral artery origin stenosis. Please note that all CT scans at this facility use dose modulation, iterative reconstruction, and/or weight-based dosing when appropriate to reduce radiation dose to as low as reasonably achievable. Dictated by Leobardo Russell MD @ 03/31/2024 6:40:13 AM Signed by:?Leobardo Rsusell MD @03/31/2024 6:40:13 AM (Electronic Signature)
--- NOTE | 2024-03-30 14:19 | CRLHL7_ITS ---
For Patients: As a result of the Century Cures Act, medical imaging exams and procedure reports are released immediately into your electronic medical record. You may view this report before your referring provider. If you have questions, please contact your health care provider. DATE: 03/30/2024 CLINICAL HISTORY: Patient with headache, subdural hematomas. TECHNIQUE: Standard helical CT image acquisition through the intracranial circulation following intravenous administration of contrast material with bolus tracking. 2D and 3D MIP images for post-processing were performed and interpreted on an independent workstation and 3D images were permanently archived. COMPARISON: CT same day. FINDINGS: There is no cerebral aneurysm or large vessel occlusion. The right internal carotid artery is normal. The right middle cerebral artery and its branches are normal. The right anterior cerebral artery and its branches are normal. The left internal carotid artery is normal. The left middle cerebral artery and its branches are normal. The left anterior cerebral artery and its branches are normal. The anterior communicating artery is well visualized and appears normal. The right vertebral artery and PICA are normal. The left vertebral artery and PICA are normal. The left vertebral artery is dominant. The basilar artery is patent and appears normal. The right posterior cerebral artery is normal. The left posterior cerebral artery is normal. The visualized venous structures are patent. IMPRESSION: Patent proximal intracranial vasculature without intracranial aneurysms. Please note that all CT scans at this facility use dose modulation, iterative reconstruction, and/or weight-based dosing when appropriate to reduce radiation dose to as low as reasonably achievable. Dictated by Leobardo Russell MD @ 03/31/2024 6:44:58 AM (Electronically Signed)
--- NOTE | 2024-03-30 14:19 | CRLHL7_ITS ---
For Patients: As a result of the Century Cures Act, medical imaging exams and procedure reports are released immediately into your electronic medical record. You may view this report before your referring provider. If you have questions, please contact your health care provider. Indication: Headache - 6days, double vision - 2 hrs Technique: CT Head without IV contrast Comparison: CT head on March 28, 2024 Findings: No acute loss of hodges-white differentiation. There is no intracranial hemorrhage. No abnormal extra-axial fluid collection identified. There is no intracranial mass, mass effect or midline shift identified. The ventricles are proportionate to the cerebral sulci. Moderate parenchymal volume loss. There is moderate patchy periventricular hypodensity, favored to represent chronic ischemic microvascular disease. Moderate size chronic left parietal infarct. The orbits are unremarkable. The visualized paranasal sinuses are clear. The mastoid air cells are clear. No calvarial fracture. Impression: 1. No CT evidence of an acute intracranial process. 2. No significant interval change compared to prior exam. Please note that all CT scans at this facility use dose modulation, iterative reconstruction, and/or weight-based dosing when appropriate to reduce radiation dose to as low as reasonably achievable. Dictated by Dustin Scott MD @ 03/30/2024 3:03:55 PM (Electronically Signed)
--- OUTSIDE RECORDS SUMMARY | 2024-03-30 14:44 | XMS_ITS | Clinical Summary ---
Author Organization [facility] Address [place], [place] [address] Care Team Providers Care Tool Radial Drill Press Set Up Operator Name Role Phone Victor M Kumar MD Primary Care Provider Aldo Arizmendi Unavailable [phone] Allergies Active Allergy Reactions Criticality Noted Date [...] sprayIndications:all ergic conjunctivitis,aller gic rhinitis Inhale 1 [place] into both nostrils once daily. 1 Bottle [...] TIA or mul tiple small biswas at [facility] 200810/27/2009 Overview: History of TIA or multiple small biswas at [facility] 2008 Renal Insufficiency 11/09/2010 cr = 1.43* [...] 08/25/2005 Overview: 2003. s/p 2 stents. Overview: MT followed by stent placement Problem list name updated by automated process. Provider to review Anxiety state 10/17/2004 Overview: Overview: Problem list name updated by automated process. Provider to review Overview: LW Modifier: Flight anxiety LW Onset: [id number] ; Anxiety NOS Tobacco use disorder 10/17/2004 Overview: Overview: LW Modifier: quit 08/2004 LW Onset: [id number] ; Tobacco Abuse Resolved Problems Problem Noted [...] Department Care Team Description 02/27/2024 Lab Requisition [facility] [phone] Victor M Kumar MD 01/01/2024 [address] [facility] [address] [place] [address] Clinic, Asct Tcu Inr Anticoagulation (Chart update) from Last 3 Months Immunizations Name Administration Dates Next Due COVID-19 vaccine (Coin[employer] NTech 30mcg/0.3mL) RENEA MICHEL 01/15/2021,12/24/2020 Influenza RIV4 [...] Comments Blood Pressure 144/60 12/06/2023 9:00 AM MILL SUPERVISOR Pulse 59 12/06/2023 10:00 AM MILL SUPERVISOR Temperature 36.9 ??C (98.5 ??F) 12/06/2023 3:27 AM CS T Respiratory Rate 21 12/06/2023 10:00 AM MILL SUPERVISOR Oxygen Saturation 95% 12/06/2023 10:00 AM MILL SUPERVISOR Inhaled Oxygen Concentration - - Weight 85.3 kg (188 lb) 12/06/2023 3:24 AM MILL SUPERVISOR Height 177.8 cm (5' 10) 12/06/2023 3:24 AM MILL SUPERVISOR Body Mass Index 26.98 12/06/2023 3:24 AM MILL SUPERVISOR Plan of Treatment Health Maintenance Due Date Last Done Comments Depression screening for age 12+ 1967 Hepatitis C screening for ag e 18-79 1973 Mammogram for age 45-75 10/11/2012 10/11/2011 Colonoscopy through age 75 11/17/201511/17 (Completed outside of [facility]), 10/29/2005 (Completed outside of [facility]) BMI (ht and wt on same day) [...] SCREEN FFDM (IA) Routine 10/11/2011 4:12 PM MILL SUPERVISOR Screening breast examination from Last 3 Months or Most Recently Relevant to Health Maintenance Results * (ABNORMAL) FACTOR 10 CHROMOGENIC (02/27/2024 9:16 AM CDT) FACTOR 10 CHROMOGENIC 16(L) 65 - 130 % 02/27/2024 4:03 PM CDT [facility] Blood BLOOD SPECIMEN / Unknown Client Collect / Unknown 02/27/2024 9:16 AM CDT 02/27/2024 3:46 PM CDT Narrative [facility] - 02/27/2024 4:03 PM CDT Therapeutic Range 20-40% Victor M Kumar MD [facility] [address] [place] [address], * (ABNORMAL) Lipid Panel - Fasting (04/12/2018 11:31 AM CDT) Pathologist [facility] CHOLESTEROL,TOTAL 139 100 - 199 mg/dL 04/12/2018 1:39 PM T [facility] TRIGLYCERIDES 282(H) <150 mg/dL 04/12/2018 1:39 PM T [facility] HDL CHOLESTEROL 37(L) >40 mg/dL 8 1:39 PM T [facility] NON-HDL CHOLESTEROL 102 <145 mg/dl 04/12/2018 1:39 PM T [facility] CHOL/HDL RATIO 3.76 <4.50 04/12/2018 1:39 PM T [facility] LDL CHOLESTEROL 46 <=130 mg/dL 04/12/2018 1:39 PM T [facility] PROVIDER ORDERED STATUS RANDOM 04/12/2018 1:39 PM T [facility] Blood BLOOD SPECIMEN / Unknown Venipuncture / Unknown 04/12/2018 11:31 AM CDT 04/12/2018 11:36 AM CDT Antonio Rodríguez MD CHEMISTRY [facility] SENDOUT INTERNAL ZIP [id number] [place] [id number] * XR MAMMO BILAT SCREEN FFDM (10/11/2011 4:12 PM MILL SUPERVISOR) Anatomical Region Laterality Modality BREASTS, Breast Left, Breast Right Bilateral Mammography Impressions 10/12/2011 8:25 AM MILL SUPERVISOR ??There is no radiographic evidence for malignancy. ??Recommend annual mammograms. A lay language report of this examination will be provided to the patient. MAMMOGRAM ASSESSMENT: ??ACR 1 Negative Narrative 10/12/2011 8:25 AM MILL SUPERVISOR XR MAMMO BILAT SCREEN FFDM [G0202.0] CLINICAL [...] 3:50 PM 10/03/2011 6:40 PM Care Teams Tool Radial Drill Press Set Up Operator Relationship Specialty Start Date End Date Victor M Kumar MD [address] [place] [address] PCP - General Emergency Medicine 11/01/16 Aldo Arizmendi [facility] [address], [place] [id number] Occupational Therapy 12/06/23
[2024-03-30 15:14] LABS: Eosinophils Absolute Auto 0.03 K/uL (0.00-0.50); Eosinophils Percent Auto 0.6 % (0.0-7.0); Hematocrit 36.4 % (33.0-51.0); Hemoglobin* 11.9 gm/dL (12.0-16.0); Immature Granulocytes Abs Auto 0.07 K/uL (0.00-0.30); Immature Granulocytes Pct Auto 1.5 %; Mean Corpuscular HGB Conc 33 gm/dL (32-36); Mean Corpuscular Hemoglobin 26 pg (26-34); Mean Corpuscular Volume 81 fL (80-100); Monocytes Percent Auto 8.1 % (0.0-11.0); Neutrophils Percent Auto 70.8 % (42.0-72.0); Platelet Count* 158 K/uL (140-440); RDW Coefficient of Variation % 14.2 % (11.5-15.5)
[2024-03-30 15:18] LABS: Slide Review Reflex No
[2024-03-30 15:27] LABS: Chloride* 96 mmol/L (96-114); Potassium* 4.4 mmol/L (3.6-5.1); Sodium* 129 mmol/L (135-149)
[2024-03-30 15:30] LABS: Anion Gap 11 mEq/L (7-15); Blood Urea Nitrogen* 23 mg/dL (7-30); Carbon Dioxide* 22 mmol/L (20-32); Creatinine* 1.3 mg/dL (0.5-1.5); Est. Creatinine Clearance* 44.79; Estimated Glomerular Filt Rate 45 ml/min
[2024-03-30 15:31] LABS: Glucose* 192 mg/dL (60-115)
[2024-03-30 15:43] LABS: Troponin I* 0.03 ng/mL (0.01-0.04)
[2024-03-30 15:46] LABS: INR 5.44 (0.91-1.10)
[2024-03-30] MEDS: KETOROLAC 15 MG/ML inj IVP (16:05)
[2024-03-30] MEDS: diazePAM 5 MG/ML inj 2.5 MG IV (16:06)
[2024-03-30] MEDS: METOCLOPRAMIDE HCL 5 MG/ML INJ 10 MG IVP (16:06)
[2024-03-30 17:04] LABS: Prothrombin Time 54.1 Seconds
[2024-03-30] MEDS: fentaNYL 100 MCG/2 ML inj 25 MCG IVP (18:00)
[2024-03-30] MEDS: PHYTONADIONE (VIT K1) 10 MG in 0.9 % SODIUM CHLORIDE 50 ml 50 ML 100 MG IVPB (18:00)
== END 2024-03-30 18:34 | disposition other institution (70) ==
PROVIDERS: Emergency Provider Emergency Medicine; PCP Internal Medicine
DX: S06.5XAA Traumatic subdural hemorrhage with loss of consciousness status unknown, initial encounter (principal); R79.1 Abnormal coagulation profile
CPT/HCPCS: 36415; 70450; 70496; 70498; 80048; 84484; 85025; 85130; 85610; 93005; 96374; 96375; 99285; 99291; A0425; A0434; J1885; J2765; J3010; J3360; J3430; J7168; Q9967

== ENCOUNTER 2024-04-09 02:13 | Emergency (ER) | payer OTHER, SELFPAY ==
[2024-04-09 02:23] VITALS: BP 174/86; PULSE 74; RESP 16; TEMP 36.6; O2SAT 100; BMI 24.1
--- NOTE | 2024-04-09 02:38 | PC.NURSE ---
Pt states she was just discharged from [facility] on Sunday for a subdural hematoma. States she had continued headache discomfort and saw primary physician yesterday. Was started on Vicodin which she said did help today. Pt states she then woke up with worse headache in back of head, occipital area and said feels like my head is going to explode, Rates the pain 8/10. Pt called daughter who brought her to the ED.GCS 15, denies N/V, visual changes, QUIJANO, equal stregth bilat.
[2024-04-09] MEDS: KETOROLAC 10 MG TABLET PO (02:46)
[2024-04-09] MEDS: hydrOXYzine pamoate 25 MG CAPSULE PO (02:47)
[2024-04-09] MEDS: HYDROmorphone 2 MG TABLET 4 MG PO (02:47)
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
--- OUTSIDE RECORDS SUMMARY | 2024-04-09 03:00 | XMS_ITS | Clinical Summary ---
Author Organization [facility] Address [place], [place] [address] Care Team Providers [employer] Name Role Phone Victor M Kumar MD Primary Care Provider Aldo Arizmendi Unavailable [phone] Allergies Active Allergy Reactions Criticality Noted Date [...] 4 times per day. 102 box PRN 09/13/20 10 Active blood sugar diagnostic (ONE TOUCH ULTRA TEST) strip As directed. Dispense test strips covered by the patient insurance. Test 3 times per day. 1 Bottle PRN 12/20/19 11 Active fluticasone, 50 mcg per actuation, nasal (FLONASE) 50 mcg/Actuation nasal sprayIndications:a llergic conjunctivitis,all ergic rhinitis Inhale 1 [place] into both nostrils once daily. 1 Bottle 12 05/19/20 11 Active blood-glucose meter (ACCU-CHEK ADVANTAGE DIABETES) As directed. Dispense glucose meter, test strips and lancets covered by the patient insurance. Test QID or as directed times per day. 1 Device 0 09/13/20 11 Active lovastatin (MEVACOR) 40 mg tabletIndications: hyperlipidemia,mix ed hyperlipidemia TAKE ONE TABLET BY MOUTH IN THE EVENING WITH MEALS 30 tablet 0 09/23/20 12 Active escitalopram oxalate (LEXAPRO) 5 mg tabletIndications: anxiety with depression Take 5 mg by mouth once daily. 08/13/20 17 Active insulin aspart, U-100, (NOVOLOG FLEXPEN) 100 unit/mL (3 mL) penIndications:typ e 2 diabetes mellitus Give subcutaneous TID with meals per blood glucose (mg/dL). Don't give corrective dose for PRN, post-prandial or nocturnal glucose checks unless ordered.Blood Glucose.....Dose. <70.............. .See Hypoglycemia Protocol.70-149.. ........No insulin, give prandial insulin, if ordered.150-199.. ......1 unit.200-249..... ...2 units.250-299.... ....3. units.300-349.... ....4 units.350-399.... ....5 units.400 or greater....6 units & call MD 1 pen 02/26/20 21 Active Lantus Solostar U-100 Insulin 100 unit/mL (3 mL) penIndications:Beth betic nephropathy associated with type 2 diabetes mellitus (HC) Inject 22 units subcutaneous once daily. Product desired: BASAGLAR TEMPO 12/04/19 24 Active lidocaine 4 % topical patchIndications:N beverly sprain, initial encounter Apply to intact skin to cover most painful area for max 12hr per 24hr period. 12/05/19 24 Active gabapentin (NEURONTIN) 300 mg capsule Take 900 mg by mouth three times daily. Active HYDROcodone-acetam inophen (5-325 mg/tablet) Take 1 Tablet by mouth every 6 hours if needed for Pain. Max acetaminophen dose: 4000 mg in 24 hrs. Usually takes ~3 tab/day Active lisinopriL (PRINIVIL; ZESTRIL) 20 mg tabletIndications: Hypertension Take 1 Tablet (20 mg) by mouth once daily. 30 Tablet 04/06/20 24 Active warfarin (COUMADIN) 5 mg tabletIndications: Lupus anticoagulant positive,Anticoagu lation monitoring, special range HOLD until you get head CT and primary care tells you to continue 04/06/20 24 Active amLODIPine (NORVASC) 10 mg tabletIndications: Hypertension Take 1 Tablet (10 mg) by mouth once daily. 30 Tablet 04/07/20 24 Active ondansetron (Zofran ODT) 4 mg disintegrating tabletIndications: prevention of post-operative nausea and vomiting Place 1 Tablet (4 mg) on the tongue every 8 hours if needed for Nausea/Vomiting. 0 02/29/20 21 024 Discontinued(Ph armacist change per medication history (E-cancel not sent)) acetaminophen (TYLENOL EXTRA STRGTH) 500 mg tabletIndications: Neck sprain, initial encounter Take 2 Tablets (1,000 mg) by mouth 4 times daily if needed for Pain or Temp > (Specify) (Temp >100.4 F (38 C)). Max acetaminophen dose: 4000mg in 24 hrs. 12/04/19 24 024 Discontinued(*I P Discontinued) artificial saliva (MOUTH KOTE) spraIndications:Dr zaragoza mouth Take 1 mL by mouth every 15 minutes if needed (dry mouth). 12/04/19 24 024 Discontinued(Ph armacist change per medication history (E-cancel not sent)) carvediloL (COREG) 25 mg tabletIndications: Essential hypertension Take 1 Tablet (25 mg) by mouth two times daily with meals. 12/04/19 24 024 Discontinued(Ph armacist change per medication history (E-cancel not sent)) nystatin powder (MYCOSTATIN) powderIndications: Intertrigo Apply topically to affected area(s) two times daily. 12/04/19 24 024 Discontinued(Ph armacist change per medication history (E-cancel not sent)) gabapentin (NEURONTIN) 300 mg capsuleIndications :Diabetic nephropathy associated with type 2 diabetes mellitus (HC) Take 2 Capsules (600 mg) by mouth three times daily. 12/04/19 24 Discontinued(Ph armacist change per medication history (E-cancel not sent)) amLODIPine (NORVASC) 10 mg tabletIndications: Essential hypertension Take 1 Tablet (10 mg) by mouth once daily. 12/05/19 24 024 Discontinued(Ph armacist change per medication history (E-cancel not sent)) albuterol-ipratrop ium (DUONEB) (2.5-0.5 mg) in 3 mL NEBULIZATION solution Inhale 3 mL via a nebulizer 4 times daily. May use an additional 1 neb (=3 mL) every 4 hours if needed. 12/10/19 24 Discontinued(Ph armacist change per medication history (E-cancel not sent)) guaiFENesin (MUCINEX) 600 mg Extended-Release tablet Take 1 Tablet (600 mg) by mouth two times daily. 12/10/19 24 Discontinued(Ph armacist change per medication history (E-cancel not sent)) warfarin (COUMADIN) 5 mg tabletIndications: Lupus anticoagulant positive,Anticoagu lation monitoring, special range Take by mouth 2/13: 5 mg; 2/14: 5 mg; 2/15: 5 mg; 2/16: 5 mg; 2/17: 5 mg; 2/18: 5 mg in the evening OR as directed 12/11/19 24 Discontinued furosemide (LASIX) 40 mg tabletIndications: Dyspnea, unspecified type,Pleural effusion Take 1 Tablet (40 mg) by mouth every morning. 30 Tablet 12/13/19 24 024 Discontinued(Ph armacist change per medication history (E-cancel not sent)) potassium chloride (KLOR-CON M20) 20 mEq extended-release tablet (part/cryst)Indica tions:Hypokalemia Take 1 Tablet (20 mEq) by mouth once daily with a meal. 30 Tablet 12/13/19 24 024 Discontinued(Ph armacist change per medication history (E-cancel not sent)) lisinopril-hydroch lorothiazide, 20-25 mg, (PRINZIDE, ZESTORETIC) 20-25 mg per tablet Take 1 Tablet by mouth once daily. 024 Discontinued(*I P Discontinued) Active Problems Problem Noted Date Diagnosed Date Subdural hematoma 03/30/2024 DM2 (diabetes mellitus, type 2) 03/30/2024 CAD (coronary artery disease) 03/30/2024 ACP (advance care planning) 03/30/2024 Subdural hematoma 11/09/2023 Diastolic dysfunction 11/09/2023 Overview: [...] ineffective or contraindicated by comorbid conditions. Ramana Nyemaikel Stroke History of TIA or mul tiple small biswas at [facility] 200810/27/2009 Overview: History of TIA or multiple small biswas at [facility] 2008 Renal Insufficiency 11/09/2010 cr = [...] 08/25/2005 Overview: 2003. s/p 2 stents. Overview: MD followed by stent placement Problem list name updated by automated process. Provider to review Anxiety state 10/17/2004 Overview: Overview: Problem list name updated by automated process. Provider to review Overview: LW Modifier: Flight anxiety LW Onset: [id number] ; Anxiety NOS Tobacco use disorder 10/17/2004 Overview: Overview: LW Modifier: quit 08/2004 LW Onset: [id number] ; Tobacco Abuse Resolved Problems Problem Noted [...] Encounters Date Type Department Care Team Description 04/08/2024 Home Care Visit [address] [address] Clemencia Santillan, RN NOT TAKEN UNDER HOME CARE 04/07/2024 Home Care Visit [address] [address] Clemencia Santillan RN CARE COORDINATION 04/06/2024 Home Care Visit [address] [address] Daphne Condon, TRACY CARE COORDINATION 04/05/2024 Travel 04/04/2024 Orders Only [facility] [address] [place] [address] Nichol Rojas NP <No scans attached> 03/31/2024 Travel 03/31/2024 Lab Requisition [facility] [phone] Victor M Kumar MD 03/30/2024 7:24 PM CDT - 04/06/2024 10:29 AM CDT Hospital Encounter [facility] [address] [place] [address] s, U Hospitalist [facility] [place], MD Samira Gonzalez Megan Catherine, MD Subdural hematoma (HC) (Primary Dx); HIGH BLOOD PRESSURE on lisinopril hctz, carvedilol; Lupus anticoagulant positive; Anticoagulation monitoring, special range 20-40% Discharge Disposition: Home Health 02/27/2024 Lab Requisition [facility] [phone] Victor M Kumar MD from Last 3 Months Immunizations Name Administration Dates Next Due COVID-19 vaccine ([employer] 30mcg/0.3mL) RENEA MICHEL 01/15/2021,12/24/2020 Influenza RIV4 (Age [...] of Communication with Friends and Fami ly 0 03/31/2024 Financial Resource Strain Answer Date R ecorded Difficulty of Paying Living Expenses 3 03/31/2024 Difficulty of Paying Living Expenses Not on file 03/31/2024 Food Insecurity Answer Date Recorded Worried About Running Out of Food in the Last Ye ar 1 03/31/2024 Transportation Needs Answer Date Record ed Lack of Transportation (Medical) 1 03/31/2024 Housing Stability Answer Date Recorded Unable to Pay for Housing in the Last Year 1 03/31/2024 Sex and Gender Information Value Date Recorded Sex Assigned at Not on file Gender Identity Not on file Sexual Orientation Not on file Obstetrics History Last Filed Vital Signs Vital Sign Reading Time Taken Comments Blood Pressure 111/58 04/06/2024 7:00 AM CDT Pulse 79 04/06/2024 7:40 AM CDT Temperature 36.3 ??C (97.4 ??F) 04/06/2024 7:38 AM CD T Respiratory Rate 16 04/06/2024 7:38 AM CDT Oxygen Saturation 97% 04/06/2024 7:38 AM CDT Inhaled Oxygen Concentration - - Weight 77.5 kg (170 lb 13.7 oz) 04/01/2024 4:00 AM CDT Height 177.8 cm (5' 10) 03/30/2024 7:29 PM CDT Body Mass Index 24.52 03/30/2024 7:29 PM CDT Plan of Treatment Upcoming Encounters Date Type Department Care Team (Late st Contact Info) Description 04/17/2024 3:00 PM CDT Ancillary Procedure [facility] [address] [place] [address] 04/17/2024 3:30 PM CDT Ancillary Procedure [facility] [address] [place] [address] Health Maintenance Due Date Last Done Comments Depression screening for age 12+ 1967 Hepatitis C screening for ag e 18-79 1973 Mammogram for age 45-75 10/11/2012 10/11/2011 Colonoscopy through age 75 11/17/201511/17 (Completed outside of [facility]), 10/29/2005 (Completed outside of [facility]) BMI (ht and wt on same day) for age 18+ 07/17/2019 07/17/2018, 08/15/2017 DEXA/DXA scan for age 65+ 2020 Medicare Wellness for age 65+ 2020 Pneumococcal series for age 65+ (4 of 4 - PPSV23 or PCV20) 12/15/2021 12/15/2020, 10/03/2013, 09/06/2000 Lipids for age 45-75 04/12/2023 04/12/2018, 09/05/2011, 04/26/2011, Additional history exists COVID-19 vaccine series ( season) 2023 08/21/2023, 07/25/2022, 02/06/2022, Additional history exists Influenza for age 65+ 06/29/2024 08/12/2020 , 08/09/2019, 07/13/2018, Additional history exists Tetanus booster 08/12/2030 08/12/2020, 02/26, 02/27/2008, Additional history exists Zoster (shingles) series for age 50+ Completed 10/13/2019, 03/28/2019 Tdap Completed 08/12/2020, 06/07/2007 Procedures Procedure Name Priority Date/Time Associated Diagnosis Comments SCAN-CARDIAC STRIP 04/06/2024 9: 35 AM CDT GLUCOSE METER Timed 04/06/2024 7:38 AM CDT GLUCOSE METER Timed 04/05/2024 8:59 PM CDT GLUCOSE METER Timed 04/05/2024 5:03 PM CDT GLUCOSE METER Timed 04/05/2024 1:[address] HEAD BRAIN WO STAT 04/05/2024 9:33 AM CDT SCAN-CARDIAC STRIP 04/05/2024 9: 17 AM CDT CORTISOL TOTAL BALDOMERO 04/05/2024 9:07 AM CDT TSH BALDOMERO 04/05/2024 9:07 AM CDT SODIUM Early AM 04/05/2024 9:07 AM CDT POTASSIUM Early AM 04/05/2024 9:07 AM CDT CREATININE Early AM 04/05/2024 9:07 AM CDT CO2,TOTAL Early AM 04/05/2024 9:07 AM CDT WHITE BLOOD COUNT Early AM 04/05/2024 9:0 7 AM CDT HEMOGLOBIN Early AM 04/05/2024 9:07 AM CDT PLATELET COUNT Early AM 04/05/2024 9:07 AM CDT CALCIUM Early AM 04/05/2024 9:07 AM CDT GLUCOSE METER Timed 04/05/2024 7:54 AM CDT GLUCOSE METER Timed 04/04/2024 8:48 PM CDT GLUCOSE METER Timed 04/04/2024 4:50 PM CDT SODIUM Today 04/04/2024 4:15 PM CDT GLUCOSE METER Timed 04/04/2024 11:45 AM CDT SCAN-CARDIAC STRIP 04/04/2024 7: [address] HEAD BRAIN WO Routine 04/04/2024 7:[address] SPINE CERVICAL WO Routine 04/04/2024 7:52 AM CDT GLUCOSE METER Timed 04/04/2024 5:58 AM CDT SODIUM BALDOMERO 04/04/2024 5:42 AM CDT SODIUM BALDOMERO 04/03/2024 9:30 PM CDT GLUCOSE METER Timed 04/03/2024 9:13 PM CDT GLUCOSE METER Timed 04/03/2024 4:58 PM CDT SODIUM BALDOMERO 04/03/2024 3:50 PM CDT GLUCOSE METER Timed 04/03/2024 11:03 AM CDT SCAN-CARDIAC STRIP 04/03/2024 8: 51 AM CDT GLUCOSE METER Timed 04/03/2024 7:08 AM CDT POTASSIUM Early AM 04/03/2024 5:51 AM CDT CREATININE Early AM 04/03/2024 5:51 AM CDT CO2,TOTAL Early AM 04/03/2024 5:51 AM CDT WHITE BLOOD COUNT Early AM 04/03/2024 5:5 1 AM CDT HEMOGLOBIN Early AM 04/03/2024 5:51 AM CDT PLATELET COUNT Early AM 04/03/2024 5:51 AM CDT CALCIUM Early AM 04/03/2024 5:51 AM CDT SODIUM BALDOMERO 04/03/2024 5:51 AM CDT SODIUM BALDOMERO 04/03/2024 12:16 AM CDT GLUCOSE METER Timed 04/02/2024 9:18 PM CDT SODIUM,RANDOM URINE Today 04/02/2024 8 :45 PM CDT OSMOLALITY,URINE Today 04/02/2024 8:45 PM CDT SODIUM BALDOMERO 04/02/2024 6:08 PM CDT GLUCOSE METER Timed 04/02/2024 5:12 PM CDT GLUCOSE METER Timed 04/02/2024 12:08 PM CDT SCAN-CARDIAC STRIP 04/02/2024 10 :27 AM CDT OSMOLALITY BALDOMERO 04/02/2024 9:30 AM CDT BASIC METABOLIC PANEL BALDOMERO 04/02/2024 9:30 AM CDT SCAN CORRESP-IMAGING 04/02/2024 8:47 AM CDT GLUCOSE METER Timed 04/02/2024 8:15 AM CDT GLUCOSE METER Timed 04/01/2024 9:14 PM CDT GLUCOSE METER Timed 04/01/2024 5:28 PM CDT SCAN-CARDIAC STRIP 04/01/2024 5: 17 PM CDT SCAN-CARDIAC STRIP 04/01/2024 12 :43 PM CDT GLUCOSE METER Timed 04/01/2024 12:01 PM CDT US VENOUS LOWER EXTREMITY BILATERAL Routine 04/01/2024 10:59 AM CDT GLUCOSE METER Timed 04/01/2024 7:46 AM CDT CBC WITH AUTO DIFFERENTIAL Early AM 04/01/2024 5:22 AM CDT FACTOR 10 CHROMOGENIC Early AM 04/01/2024 5:22 AM CDT PROTIME-INR Early AM 04/01/2024 5:22 AM CDT CBC WITH AUTO DIFFERENTIAL Early AM 04/01/2024 5:22 AM CDT BASIC METABOLIC PANEL Early AM 04/01/2024 5:[address] SPINE CERVICAL WO Routine 04/01/2024 4:[address] HEAD BRAIN WO Routine 04/01/2024 4:57 AM CDT GLUCOSE METER Timed 03/31/2024 9:59 PM CDT GLUCOSE METER Timed 03/31/2024 4:19 PM CDT GLUCOSE METER Timed 03/31/2024 12:23 PM CDT SCAN-CARDIAC STRIP 03/31/2024 10 :18 AM CDT GLUCOSE METER Timed 03/31/2024 7:52 AM CDT APTT Early AM 03/31/2024 5:18 AM CDT PROTIME-INR Early AM 03/31/2024 5:18 AM CDT BASIC METABOLIC PANEL Early AM 03/31/2024 5:[address] HEAD BRAIN WO Routine 03/31/2024 5:11 AM CDT GLUCOSE METER Timed 03/31/2024 4:10 AM CDT GLUCOSE METER Timed 03/30/2024 11:[address] SPINE CERVICAL WO STAT 03/30/2024 10:[address] HEAD BRAIN WO STAT 03/30/2024 10:1 7 PM CDT SCAN-CARDIAC STRIP 03/30/2024 9: 52 PM CDT FACTOR 10 CHROMOGENIC STAT 03/30/2024 9:38 PM CDT POTASSIUM STAT 03/30/2024 9:38 PM CDT GLUCOSE METER Timed 03/30/2024 8:55 PM CDT FIBRINOGEN,QUANTITATI VE STAT 03/30/2024 8:20 PM CDT BASIC METABOLIC PANEL STAT 03/30/2024 8:20 PM CDT PHOSPHORUS STAT 03/30/2024 8:20 PM CDT MAGNESIUM STAT 03/30/2024 8:20 PM CDT APTT STAT 03/30/2024 8:20 PM CDT PROTIME-INR STAT 03/30/2024 8:20 PM CDT CBC W PLT NO DIFF STAT 03/30/2024 8:2 0 PM CDT FACTOR 10 CHROMOGENIC Routine 03/30/2024 3:50 PM CDT FACTOR 10 CHROMOGENIC Routine 02/27/2024 9:16 AM CDT LIPID PANEL BALDOMERO 04/12/2018 11:31 AM CDT XR MAMMO BILAT SCREEN FFDM (IA) Routine 10/11/2011 4:12 PM DIRECTOR OF PSYCHIATRY Screening breast examination from Last 3 Months or Most Recently Relevant to Health Maintenance Results * SCAN-CARDIAC STRIP (04/06/2024 9:35 AM CDT) Scanner OTHER * (ABNORMAL) GLUCOSE METER (04/06/2024 7:38 AM CDT) Only the most recent of28 resultswithin the time period is included. GLUCOSE METER 175(H) 65 - 100 mg/dL 04/06/2024 7:47 AM CDT [facility] Blood BLOOD SPECIMEN / Unknown 04/06/2024 7:38 AM CDT 04/06/2024 7:47 AM CDT Nuvia Hogan MD CHEMISTRY [facility] SENDOUT [place] [address]IP [phone] [place] [address] * CT HEAD BRAIN WO (04/05/2024 9:33 AM CDT) Only the most recent of5 resultswithin the time period is included. Anatomical Region Laterality Modality HEAD, BRAIN Computed Tomogra phy 04/05/2024 9:33 AM CDT Impressions 04/05/2024 10:40 AM CDT 1. ??Stable posterior fossa extra-axial hemorrhage. 2. ??No new or progressive hemorrhage. Narrative 04/05/2024 10:40 AM CDT For Patients: As a result of the Century Cures Act, medical imaging exams and procedure reports are released immediately into your electronic medical record. You may view this report before your referring provider. If you have questions, please contact your health care provider. EXAM: CT HEAD BRAIN WITHOUT CONTRAST LOCATION: [facility] DATE: 04/05/2024 INDICATION: Stroke, follow-up. COMPARISON: Head CT 04/04/2024. TECHNIQUE: Routine CT Head without IV contrast. Multiplanar reformats. Dose reduction techniques were used. FINDINGS: INTRACRANIAL CONTENTS: Extra-axial hemorrhage extending caudally from the dorsum sella region to the foramen magnum along the clivus is stable. Subdural hemorrhage along the undersurface of the left greater than right tentorium is also unchanged. No new or progressive hemorrhage. Chronic left parieto-occipital infarct. No CT evidence of acute infarct. Mild presumed chronic small vessel ischemic changes. Mild generalized volume loss. No hydrocephalus. VISUALIZED ORBITS/SINUSES/MASTOIDS: No intraorbital abnormality. No paranasal sinus mucosal disease. No middle ear or mastoid effusion. BONES/SOFT TISSUES: No acute abnormality. Procedure Note Nikolai Chowdhury MD - 04/05/2024 For Patients: As a result of the Cures Act, medical imagingexams and procedure reports are released immediately into your electronicmedical record. You may view this report before your referring provider.If you have questions, please contact your health care provider. EXAM: CT HEAD BRAIN WITHOUT CONTRAST LOCATION: [facility] DATE: 04/05/2024 INDICATION: Stroke, follow-up. COMPARISON: Head CT 04/04/2024. TECHNIQUE: Routine CT Head without IV contrast. Multiplanar reformats.Dose reduction techniques were used. FINDINGS: INTRACRANIAL CONTENTS: Extra-axial hemorrhage extending caudally from thedorsum sella region to the foramen magnum along the clivus is stable.Subdural hemorrhage along the undersurface of the left greater than righttentorium is also unchanged. No new or progressive hemorrhage. Chronicleft parieto-occipital infarct. No CT evidence of acute infarct. Mildpresumed chronic small vessel ischemic changes. Mild generalized volumeloss. No hydrocephalus. VISUALIZED ORBITS/SINUSES/MASTOIDS: No intraorbital abnormality. Noparanasal sinus mucosal disease. No middle ear or mastoid effusion. BONES/SOFT TISSUES: No acute abnormality. IMPRESSION: 1. Stable posterior fossa extra-axial hemorrhage. 2. No new or progressive hemorrhage. Nuvia Hogan MD CT * SCAN-CARDIAC STRIP (04/05/2024 9:17 AM CDT) Scanner OTHER * CORTISOL TOTAL (04/05/2024 9:07 AM CDT) CORTISOL,TOTAL 11.1 ug/dL 04/05/2024 3:46 PM CDT [facility] Blood BLOOD SPECIMEN / Unknown Butterfly / Unknown 04/05/2024 9:07 AM CDT 04/05/2024 9:39 AM CDT Narrative [facility] - 04/05/2024 3:46 PM CDT Cortisol ?Morning Hours ?6:00 ??AM - 10:00 AM ?(4.8-19.5 ug/dL) Cortisol ?Afternoon Hours ??4:00 ??PM - ??8:00 PM ?(2.5-11.9 ug/dL) ? Biotin supplements may cause clinically significant interference for this test assay. ??If interference is suspected, it is strongly recommended that biotin is discontinued for at least one week prior to retesting. Nuvia Hogan MD CHEMISTRY Performing Organization Address [facility] Co de Phone Number [facility] SENDOUT [place] [address] [phone] [place] [address] * TSH (04/05/2024 9:07 AM CDT) Pathologist [facility] TSH 1.90 0.27 - 4.20 uIU/mL 04/05/2024 3:45 PM CDT [facility] Blood BLOOD SPECIMEN / Unknown Butterfly / Unknown 04/05/2024 9:07 AM CDT 04/05/2024 9:39 AM CDT [facility] - 04/05/2024 3:45 PM CDT In Adults, TSH values between 5.00 and 10.00 uIU/ml do not necessarily indicate the presence of Hypothyroidism. Correlation with clinical findings such as presence of goiter and/or Thyroperoxidase (TPO) Antibody may be helpful. For more information please refer to KAYLEE 2004; 291: 228-238. Nuvia Hogan MD CHEMISTRY Performing Organization Address [facility]/ZIP Co de Phone Number [facility] SEND[facility] [address] [phone] [place] [address] * (ABNORMAL) PLATELET COUNT (04/05/2024 9:07 AM CDT) Only the most recent of2 resultswithin the time period is included. PLATELET COUNT 124(L) 140 - 440 thou/cu mm 04/05/2024 9:48 AM CDT [facility] MPV 10.1 6.5 - 11.0 fL 04/05/2024 9:48 AM CDT [facility] Blood BLOOD SPECIMEN / Unknown Butterfly / Unknown 04/05/2024 9:07 AM CDT 04/05/2024 9:39 AM CDT Nuvia Hogan MD HEMATOLOGY Performing Organization Address [facility] Co de Phone Number [facility] SENDOUT INTERNAL Z[phone] [place] [address] * (ABNORMAL) WHITE BLOOD COUNT (04/05/2024 9:07 AM CDT) Only the most recent of2 resultswithin the time period is included. WHITE BLOOD COUNT 3.5(L) 4.5 - 11.0 thou/cu mm 04/05/2024 9:48 AM CDT [facility] NRBC 0.0 % 04/05/2024 9:48 AM CDT [facility] ABS NRBC 0.0 thou /cu mm 04/05/2024 9:48 AM CDT [facility] Blood BLOOD SPECIMEN / Unknown Butterfly / Unknown 04/05/2024 9:07 AM CDT 04/05/2024 9:39 AM CDT Nuvia Hoagn MD HEMATOLOGY Performing Organization Address [facility]/ZIP Co de Phone Number [facility] SENDOUT INTERNAL ZIP [phone] [place] [phone] * (ABNORMAL) HEMOGLOBIN (04/05/2024 9:07 AM CDT) Only the most recent of2 resultswithin the time period is included. HEMOGLOBIN 9.7(L) 12.0 - 16.0 g/dL 04/05/2024 9:48 AM CDT [facility] MCV 80 80 - 100 fL 04/05/2024 9:48 AM CDT [facility] Blood BLOOD SPECIMEN / Unknown Butterfly / Unknown 04/05/2024 9:07 AM CDT 04/05/2024 9:39 AM CDT Nuvia Hogan MD HEMATOLOGY [facility] SENDOUT [place] [phone] [place] [address] * (ABNORMAL) SODIUM (04/05/2024 9:07 AM CDT) Only the most recent of8 resultswithin the time period is included. SODIUM 131(L) 136 - 145 mmol/L 04/05/2024 10:09 AM CDT [facility] Blood BLOOD SPECIMEN / Unknown Butterfly / Unknown 04/05/2024 9:07 AM CDT 04/05/2024 9:39 AM CDT Nuvia Hogan MD CHEMISTRY Performing Organization Address [facility] Co de Phone Number [facility] SENDOUT [place] [address] [phone] [place] [address] * POTASSIUM (04/05/2024 9:07 AM CDT) Only the most recent of3 resultswithin the time period is included. POTASSIUM 3.6 3.5 - 5.1 mmol/L 04/05/2024 10:09 AM CDT [facility] Blood BLOOD SPECIMEN / Unknown Butterfly / Unknown 04/05/2024 9:07 AM CDT 04/05/2024 9:39 AM CDT Nuvia Hogan MD CHEMISTRY Performing Organization Address [facility] Co de Phone Number [facility] SENDOUT INTERNAL ZIP [phone] [place] [phone] * (ABNORMAL) CREATININE (04/05/2024 9:07 AM CDT) Only the most recent of2 resultswithin the time period is included. eGFR 56(L) >90 mL/min/1.7 3m2 04/05/2024 10:09 AM CDT [facility] Comment:As of 2022, eG FR is calculated by the CKD-EPI creatinine equation without race adjustment. ??eGFR can be influenced by muscle mass, exercise, and diet. ??The reported eGFR is an estimation only and is only applicable if the renal function is stable. CREATININE 1.08(H) 0.50 - 0.90 mg/dL 04/05/2024 10:09 AM CDT [facility] Blood BLOOD SPECIMEN / Unknown Butterfly / Unknown 04/05/2024 9:07 AM CDT 04/05/2024 9:39 AM CDT Nuvia Hogan MD CHEMISTRY Performing Organization Address [facility] Co de Phone Number [facility] SENDOUT INTERNAL ZIP [phone] [place] [id number] * (ABNORMAL) CO2,TOTAL (04/05/2024 9:07 AM CDT) Only the most recent of2 resultswithin the time period is included. CO2,TOTAL 18(L) 22 - 29 mmol/L 04/05/2024 10:09 AM CDT [facility] Blood BLOOD SPECIMEN / Unknown Butterfly / Unknown 04/05/2024 9:07 AM CDT 04/05/2024 9:39 AM CDT Nuvia Hogan MD CHEMISTRY Performing Organization Address [facility] Co de Phone Number [facility] SENDOUT INTERNAL ZIP [phone] [place] [address] * CALCIUM (04/05/2024 9:07 AM CDT) Only the most recent of2 resultswithin the time period is included. CALCIUM 8.8 8.8 - 10.2 mg/dL 04/05/2024 10:09 AM CDT [facility] Blood BLOOD SPECIMEN / Unknown Butterfly / Unknown 04/05/2024 9:07 AM CDT 04/05/2024 9:39 AM CDT Nuvia Hogan MD CHEMISTRY Performing Organization Address [facility]/ZIP Co de Phone Number [facility] SENDOUT INTERNAL ZIP [phone] [place] [phone] * SCAN-CARDIAC STRIP (04/04/2024 7:57 AM CDT) Scanner OTHER * CT SPINE CERVICAL WO (04/04/2024 7:52 AM CDT) Only the most recent of3 resultswithin the time period is included. Anatomical Region Laterality Modality CERVICAL SPINE, NECK, Spine Comp uted Tomography 04/04/2024 7:52 AM CDT Impressions 04/04/2024 9:04 AM CDT 1. ??Stable extramedullary/extra-axial blood products intracranially at the posterior fossa ventrally at the prepontine level, and at the ventral epidural level in the upper cervical spine from 04/01/2024. These blood products are stable to diminished in density and size from 03/30/2024, however. No new hemorrhage is evident. Stable mild mass effect upon the ventral thecal sac at the skull base and upper C1 level ventrally as before. 2. ??No fracture or posttraumatic subluxation. 3. ??No high-grade spinal canal or neural foraminal stenosis. 4. ??No other significant changes or acute process compared to 04/01/2024. Narrative 04/04/2024 9:04 AM CDT For Patients: As a result of the Century Cures Act, medical imaging exams and procedure reports are released immediately into your electronic medical record. You may view this report before your referring provider. If you have questions, please contact your health care provider. EXAM: CT SPINE CERVICAL WO LOCATION: [facility] DATE: 04/04/2024 INDICATION: Hemorrhage and neck pain. COMPARISON: 04/01/2024 and 03/30/[address] examinations. TECHNIQUE: Routine CT Cervical Spine without IV contrast. Multiplanar reformats. Dose reduction techniques were used. FINDINGS: VERTEBRA: Stable and satisfactory cervical vertebral body height. Stable alignment with low-grade 1 mm subluxation C4-C5 and C5-C6. No progressive or high-grade subluxations. Articular pillars remain intact without facet joint space widening or disruption. Occipital condyles are normal. C1 ring is intact. Foramen magnum is normal. No displaced upper rib fractures. Hyoid bone and neck cartilage are normal. No acute cervical fracture or posttraumatic malalignment. Interspace narrowing/endplate osteophytes C4-C5 and C5-C6. Satisfactory appearance to the TMJs. Mild rightward convexity curve apex T1. CANAL/FORAMINA: There is redemonstration of extramedullary blood products within the spinal canal, extending intracranially at the prepontine level seen series 7 image 27 as before. The extent and degree of blood products are stable overall from 04/01/2024 perhaps minimally diminished from 03/30/2024 in size and density. This is compatible with evolving phase subacute subdural/extradural hemorrhage. No new hyperdense hemorrhage noted. Mild mass effect upon the ventral thecal sac at the skull base and C1 level ventrally as before. PARASPINAL: Scarring in the lung apices. Thyroid is satisfactory. Vascular calcification. Procedure Note Gurjit Hancock MD - 04/04/2024 For Patients: As a result of the Cures Act, medical imagingexams and procedure reports are released immediately into your electronicmedical record. You may view this report before your referring provider.If you have questions, please contact your health care provider. EXAM: CT SPINE CERVICAL WO LOCATION: [facility] DATE: 04/04/2024 INDICATION: Hemorrhage and neck pain. COMPARISON: 04/01/2024 and 03/30/[address] examinations. TECHNIQUE: Routine CT Cervical Spine without IV contrast. Multiplanarreformats. Dose reduction techniques were used. FINDINGS: VERTEBRA: Stable and satisfactory cervical vertebral body height. Stablealignment with low-grade 1 mm subluxation C4-C5 and C5-C6. No progressiveor high-grade subluxations. Articular pillars remain intact without facetjoint space widening or disruption. Occipital condyles are normal. C1 ringis intact. Foramen magnum is normal. No displaced upper rib fractures.Hyoid bone and neck cartilage are normal. No acute cervical fracture orposttraumatic malalignment. Interspace narrowing/endplate osteophytesC4-C5 and C5-C6. Satisfactory appearance to the TMJs. Mild rightwardconvexity curve apex T1. CANAL/FORAMINA: There is redemonstration of extramedullary blood productswithin the spinal canal, extending intracranially at the prepontine levelseen series 7 image 27 as before. The extent and degree of blood productsare stable overall from 04/01/2024 perhaps minimally diminished from03/30/2024 in size and density. This is compatible with evolving phasesubacute subdural/extradural hemorrhage. No new hyperdense hemorrhagenoted. Mild mass effect upon the ventral thecal sac at the skull base andC1 level ventrally as before. PARASPINAL: Scarring in the lung apices. Thyroid is satisfactory. Vascularcalcification. IMPRESSION: 1. Stable extramedullary/extra-axial blood products intracranially at theposterior fossa ventrally at the prepontine level, and at the ventralepidural level in the upper cervical spine from 04/01/2024. These bloodproducts are stable to diminished in density and size from 03/30/2024,however. No new hemorrhage is evident. Stable mild mass effect upon theventral thecal sac at the skull base and upper C1 level ventrally asbefore. 2. No fracture or posttraumatic subluxation. 3. No high-grade spinal canal or neural foraminal stenosis. 4. No other significant changes or acute process compared to 04/01/2024. Nichol Rojas NP CT * SCAN-CARDIAC STRIP (04/03/2024 8:51 AM CDT) Scanner OTHER * SODIUM,RANDOM URINE (04/02/2024 8:45 PM CDT) SODIUM,RANDOM URINE 62 mmol/L 04/03/2024 1:11 AM CDT [facility] Comment:No Reference Range D efined. Urine URINE SPECIMEN / Unknown Non-Blood / Unknown 04/02/2024 8:45 PM CDT 04/02/2024 8:55 PM CDT Nuvia Hogan MD URINE [facility] [address] [place] [address], * OSMOLALITY,URINE (04/02/2024 8:45 PM CDT) OSMOLALITY,URI NE 397 50 - 1,400 mOsmol/kg 04/03/2024 1:37 AM CDT [facility] Urine URINE SPECIMEN / Unknown Non-Blood / Unknown 04/02/2024 8:45 PM CDT 04/02/2024 8:55 PM CDT Nuvia Hogan MD URINE Performing Organization Address [facility] Co de Phone Number [facility] [address] [place] [address], * SCAN-CARDIAC STRIP (04/02/2024 10:27 AM CDT) Scanner OTHER * OSMOLALITY (04/02/2024 9:30 AM CDT) OSMOLALITY 278 275 - 300 mOsmol/kg 04/02/2024 4:11 PM CDT [facility] Blood BLOOD SPECIMEN / Unknown Venipuncture / Unknown 04/02/2024 9:30 AM CDT 04/02/2024 9:43 AM CDT Nuvia Hogan MD CHEMISTRY Performing Organization Address [facility] Co de Phone Number [facility] [address] [place] [address], * (ABNORMAL) BASIC METABOLIC PANEL (04/02/2024 9:30 AM CDT) Only the most recent of4 resultswithin the time period is included. SODIUM 126(L) 136 - 145 mmol/L 04/02/2024 10:10 AM CDT [facility] POTASSIUM 3.7 3.5 - 5.1 mmol/L 04/02/2024 10:10 AM CDT [facility] CHLORIDE 96(L) 98 - 107 mmol/L 04/02/2024 10:10 AM CDT [facility] CO2,TOTAL 18(L) 22 - 29 mmol/L 04/02/2024 10:10 AM T [facility] ANION GAP 12 5 - 18 04/02/2024 10:10 AM CDT [facility] GLUCOSE 199(H) 70 - 99 mg/dL 04/02/2024 10:10 AM CDT [facility] CALCIUM 8.7(L) 8.8 - 10.2 mg/dL 04/02/2024 10:10 AM CDT [facility] BUN 21 8 - 23 mg/dL 04/02/2024 10:10 AM CDT [facility] CREATININE 1.23(H) 0.50 - 0.90 mg/dL 04/02/2024 10:10 AM CDT [facility] BUN/CREAT RATIO 17 10 - 20 10:10 AM CDT [facility] eGFR 48(L) >90 mL/min/1.7 3m2 04/02/2024 10:10 AM CDT [facility] Comment:As of 2022, eG FR is calculated by the CKD-EPI creatinine equation without race adjustment. ??eGFR can be influenced by muscle mass, exercise, and diet. ??The reported eGFR is an estimation only and is only applicable if the renal function is stable. Blood BLOOD SPECIMEN / Unknown Venipuncture / Unknown 04/02/2024 9:30 AM CDT 04/02/2024 9:43 AM CDT Nuvia Hogan MD CHEMISTRY [facility] SENDOUT INTERNAL ZIP [phone] [place] [address] * SCAN CORRESP-IMAGING (04/02/2024 8:47 AM CDT) Anatomical Region Laterality Modality Other Narrative 04/02/2024 8:47 AM CDT Ordered by an unspecified provider. Other Clinical Staff OTHER * SCAN-CARDIAC STRIP (04/01/2024 5:17 PM CDT) Scanner OTHER * SCAN-CARDIAC STRIP (04/01/2024 12:43 PM CDT) Scanner OTHER * US VENOUS LOWER EXTREMITY BILATERAL (04/01/2024 10:59 AM CDT) Anatomical Region Laterality Modality LEGS, LEG L, LEG R Ultrasound 04/01/2024 10:5 9 AM CDT Impressions 04/01/2024 2:29 PM CDT 1. ??No acute DVT in the left lower extremity. Chronic thrombus noted within the left popliteal and femoral vein. 2. ??No DVT identified within the right lower extremity. Narrative 04/01/2024 2:29 PM CDT For Patients: As a result of the Cures Act, medical imaging exams and procedure reports are released immediately into your electronic medical record. You may view this report before your referring provider. If you have questions, please contact your health care provider. EXAM: US VENOUS LOWER EXTREMITY BILATERAL LOCATION: [facility] DATE: 04/01/2024 INDICATION: Swelling COMPARISON: 11/11/2023 TECHNIQUE: Venous Duplex ultrasound of bilateral lower extremities with and without compression, augmentation and duplex. Color flow and spectral Doppler with waveform analysis performed. FINDINGS: Exam includes the common femoral, femoral, popliteal veins as well as segmentally visualized deep calf veins and greater saphenous vein. RIGHT: No deep vein thrombosis. No superficial thrombophlebitis. No popliteal cyst. LEFT: No acute DVT. ??Chronic thrombus noted in the left popliteal to femoral vein. No superficial thrombophlebitis. No popliteal cyst. Procedure Note Zurdo De La Cruz MD - 04/01/2024 For Patients: As a result of the Cures Act, medical imagingexams and procedure reports are released immediately into your electronicmedical record. You may view this report before your referring provider.If you have questions, please contact your health care provider. EXAM: US VENOUS LOWER EXTREMITY BILATERAL LOCATION: [facility] DATE: 04/01/2024 INDICATION: Swelling COMPARISON: 11/11/2023 TECHNIQUE: Venous Duplex ultrasound of bilateral lower extremities withand without compression, augmentation and duplex. Color flow and spectralDoppler with waveform analysis performed. FINDINGS: Exam includes the common femoral, femoral, popliteal veins aswell as segmentally visualized deep calf veins and greater saphenous vein. RIGHT: No deep vein thrombosis. No superficial thrombophlebitis. Nopopliteal cyst. LEFT: No acute DVT. Chronic thrombus noted in the left popliteal tofemoral vein. No superficial thrombophlebitis. No popliteal cyst. IMPRESSION: 1. No acute DVT in the left lower extremity. Chronic thrombus notedwithin the left popliteal and femoral vein. 2. No DVT identified within the right lower extremity. Nichol Giannabridger Rojas [employer] [facility] * (ABNORMAL) CBC WITH AUTO DIFFERENTIAL (04/01/2024 5:22 AM CDT) WHITE BLOOD COUNT 4.0(L) 4.5 - 11.0 thou/cu mm 04/01/2024 5:45 AM CDT [facility] RED BLOOD COUNT 3.92(L) 4.00 - 5.20 mil/cu mm 04/01/2024 5:45 AM CDT [facility] HEMOGLOBIN 10.3(L) 12.0 - 16.0 g/dL 04/01/2024 5:45 AM T [facility] HEMATOCRIT 31.9(L) 33.0 - 51.0 % 04/01/2024 5:45 AM T [facility] MCV 81 80 - 100 fL 04/01/2024 5:45 AM [facility] MCH 26.3 26.0 - 34.0 pg 04/01/2024 5:45 AM [facility] MCHC 32.3 32.0 - 36.0 g/dL 04/01/2024 5:45 AM [facility] RDW 14.3 11.5 - 15.5 % 04/01/2024 5:45 AM [facility] PLATELET COUNT 150 140 - 440 thou/cu mm 04/01/2024 5:45 AM [facility] MPV 9.5 6.5 - 11.0 fL 04/01/2024 5:45 AM [facility] NRBC 0.0 % 04/01/2024 5:45 AM T [facility] ABS NRBC 0.0 thou /cu mm 04/01/2024 5:45 AM [facility] % NEUT 76.4 % 04/01/2024 5:45 AM CDT [facility] % LYMPH 15.2 % 04/01/2024 5:45 AM CDT [facility] % MONO 7.0 % 04/01/2024 5:45 AM CDT [facility] % EOS 1.0 % 04/01/2024 5:45 AM CDT [facility] % BASO 0.2 % 04/01/2024 5:45 AM CDT [facility] % IMMATURE GRAN (METAS,MYELOS,MO OS) 0.2 % 04/01/2024 5:45 AM CDT [facility] ABSOLUTE NEUTROPHILS 3.1 1.7 - 7.0 thou/cu mm 04/01/2024 5:45 AM CDT [facility] ABSOLUTE LYMPHOCYTES 0.6(L) 0.9 - 2.9 thou/cu mm 04/01/2024 5:45 AM CDT [facility] ABSOLUTE MONOCYTES 0.3 <0.9 thou/cu mm 04/01/2024 5:45 AM CDT [facility] ABSOLUTE EOSINOPHILS 0.0 <0.5 thou/cu mm 04/01/2024 5:45 AM CDT [facility] ABSOLUTE BASOPHILS 0.0 <0.3 thou/cu mm 04/01/2024 5:45 AM CDT [facility] ABSOLUTE IMMATURE GRANULOCYTES(MET ,MYELOS,PROS) 0.0 <0.3 thou/cu mm 04/01/2024 5:45 AM CDT [facility] Blood BLOOD SPECIMEN / Unknown Venipuncture / Unknown 04/01/2024 5:22 AM CDT 04/01/2024 5:29 AM CDT Pinky Andrews NP HEMATOLOGY [facility] SENDOUT INTERNAL [facility] [id number] [place] [id number] * PROTIME-INR (04/01/2024 5:22 AM CDT) Only the most recent of3 resultswithin the time period is included. INR 1.1 <1.3 04/01/2024 5:41 AM CDT [facility] PROTIME 11.8 10.3 - 12.3 sec 04/01/2024 5:41 AM CDT [facility] Blood BLOOD SPECIMEN / Unknown Venipuncture / Unknown 04/01/2024 5:22 AM CDT 04/01/2024 5:29 AM CDT Narrative [facility] - 04/01/2024 5:41 AM CDT ?Therapeutic Range 2.0-3.0 for most anticoagulated patients [...] seconds if the patient is on UFH. Pinky Andrews NP HEMATOLOGY Performing Organization Address City/[facility]/ZIP Co de Phone Number [facility] SENDOUT INTERNAL ZIP [phone] [place] [address] * FACTOR 10 CHROMOGENIC (04/01/2024 5:22 AM CDT) Only the most recent of4 resultswithin the time period is included. FACTOR 10 CHROMOGENIC 85 65 - 130 % 04/01/2024 7:22 AM CDT [facility] Blood BLOOD SPECIMEN / Unknown Venipuncture / Unknown 04/01/2024 5:22 AM CDT 04/01/2024 5:29 AM CDT Narrative [facility] - 04/01/2024 7:22 AM CDT Therapeutic Range 20-40% Nuvia Hogan MD SEND OUTS Performing Organization Address [facility]/ZIP Co de Phone Number [facility] [address] [place] [address], * SCAN-CARDIAC STRIP (03/31/2024 10:18 AM CDT) Scanner OTHER * (ABNORMAL) APTT (03/31/2024 5:18 AM CDT) Only the most recent of2 resultswithin the time period is included. APTT 27(L) 28 - 36 sec 03/31/2024 6:11 AM CDT [facility] Blood BLOOD SPECIMEN / Unknown Venipuncture / Unknown 03/31/2024 5:18 AM CDT 03/31/2024 5:56 AM CDT Narrative [facility] - 03/31/2024 6:11 AM CDT Therapeutic Range: 57-87 seconds Sarahi BENITEZ HEMATOLOGY [facility] SENDOUT INTERNAL ZIP [phone] [place] [address] * SCAN-CARDIAC STRIP (03/30/2024 9:52 PM CDT) Scanner OTHER * (ABNORMAL) CBC W PLT NO DIFF (03/30/2024 8:20 PM CDT) WHITE BLOOD COUNT 4.0(L) 4.5 - 11.0 thou/cu mm 03/30/2024 8:42 PM CDT [facility] RED BLOOD COUNT 4.01 4.00 - 5.20 mil/cu mm 03/30/2024 8:42 PM CDT [facility] HEMOGLOBIN 10.9(L) 12.0 - 16.0 g/dL 03/30/2024 8:42 PM CDT [facility] HEMATOCRIT 32.2(L) 33.0 - 51.0 % 03/30/2024 8:42 PM CDT [facility] MCV 80 80 - 100 fL 03/30/2024 8:42 PM CDT [facility] MCH 27.2 26.0 - 34.0 pg 03/30/2024 8:42 PM CDT [facility] MCHC 33.9 32.0 - 36.0 g/dL 03/30/2024 8:42 PM CDT [facility] RDW 14.1 11.5 - 15.5 % 03/30/2024 8:42 PM CDT [facility] PLATELET COUNT 164 140 - 440 thou/cu mm 03/30/2024 8:42 PM CDT [facility] MPV 10.3 6.5 - 11.0 fL 03/30/2024 8:42 PM CDT [facility] NRBC 0.0 % 03/30/2024 8:42 PM CDT [facility] ABS NRBC 0.0 thou /cu mm 03/30/2024 8:42 PM CDT [facility] Blood BLOOD SPECIMEN / Unknown Venipuncture / Unknown 03/30/2024 8:20 PM CDT 03/30/2024 8:38 PM CDT Sarahi BENITEZ HEMATOLOGY Performing Organization Address [facility]/ZIP Co de Phone Number [facility] SENDOUT INTERNAL ZIP [phone] [place] [address] * (ABNORMAL) FIBRINOGEN,QUANTITATIVE (03/30/2024 8:20 PM CDT) FIBRINOGEN,CIELO NTITATIVE 453(H) 193 - 401 mg/dL 03/30/2024 8:51 PM CDT [facility] Blood BLOOD SPECIMEN / Unknown Venipuncture / Unknown 03/30/2024 8:20 PM CDT 03/30/2024 8:38 PM CDT Sarahi BENITEZ HEMATOLOGY Performing Organization Address [facility]/ZIP Co de Phone Number [facility] SENDOUT INTERNAL ZIP [phone] [place] [phone] * PHOSPHORUS (03/30/2024 8:20 PM CDT) PHOSPHORUS 3.6 2.5 - 4.5 mg/dL 03/30/2024 8:59 PM CDT [facility] Blood BLOOD SPECIMEN / Unknown Venipuncture / Unknown 03/30/2024 8:20 PM CDT 03/30/2024 8:38 PM CDT Sarahi BENITEZ CHEMISTRY Performing Organization Address City/[facility]/ZIP Co de Phone Number [facility] SENDOUT INTERNAL ZIP [phone] [place] [phone] * MAGNESIUM (03/30/2024 8:20 PM CDT) MAGNESIUM 1.6 1.6 - 2.4 mg/dL 03/30/2024 8:59 PM CDT [facility] Blood BLOOD SPECIMEN / Unknown Venipuncture / Unknown 03/30/2024 8:20 PM CDT 03/30/2024 8:38 PM CDT Sarahi BENITEZ CHEMISTRY Performing Organization Address [facility]/ZIP Co de Phone Number [facility] SENDOUT INTERNAL ZIP [phone] [place] [address] * (ABNORMAL) Lipid Panel - Fasting (04/12/2018 11:31 AM CDT) CHOLESTEROL,TOTAL 139 100 - 199 mg/dL 04/12/2018 1:39 PM CDT [facility] TRIGLYCERIDES 282(H) <150 mg/dL 04/12/2018 1:39 PM CDT [facility] HDL CHOLESTEROL 37(L) >40 mg/dL 8 1:39 PM CDT [facility] NON-HDL CHOLESTEROL 102 <145 mg/dl 04/12/2018 1:39 PM T [facility] CHOL/HDL RATIO 3.76 <4.50 04/12/2018 1:39 PM CDT [facility] LDL CHOLESTEROL 46 <=130 mg/dL 04/12/2018 1:39 PM T [facility] PROVIDER ORDERED STATUS RANDOM 04/12/2018 1:39 PM T [facility] Blood BLOOD SPECIMEN / Unknown Venipuncture / Unknown 04/12/2018 11:31 AM CDT 04/12/2018 11:36 AM CDT Antonio Rodríguez MD CHEMISTRY Performing Organization Address City/[facility]/ZIP Co de Phone Number [facility] SENDOUT INTERNAL ZIP [phone] [place] [address] * XR MAMMO BILAT SCREEN FFDM (10/11/2011 4:12 PM DIRECTOR OF PSYCHIATRY) Anatomical Region Laterality Modality BREASTS, Breast Left, Breast Right Bilateral Mammography Impressions 10/12/2011 8:25 AM DIRECTOR OF PSYCHIATRY ??There is no radiographic evidence for malignancy. ??Recommend annual mammograms. A lay language report of this examination will be provided to the patient. MAMMOGRAM ASSESSMENT: ??ACR 1 Negative Narrative 10/12/2011 8:25 AM DIRECTOR OF PSYCHIATRY XR MAMMO BILAT SCREEN FFDM [G0202.0] CLINICAL [...] on File) Date Activated Date Inactivated Comments 03/30/2024 7:49 PM 04/06/2024 12:39 PM Question Answer Comments Code Status Discussion: Reviewed Preferences * Full Code Date Activated Date Inactivated Comments 11/11/2023 5:33 [...] Comments 04/12/2018 1:04 PM 04/17/2018 2:50 PM Care Teams [employer] Relationship Specialty Start Date End Date Victor M Kumar MD [address] [place] [address] PCP - General Emergency Medicine 11/01/16 Aldo Arizmendi C[facility] [address] [place], [place] [id number] Occupational Therapy 12/06/23
[2024-04-09 03:25] VITALS: BP 147/80; PULSE 70; RESP 16; O2SAT 98
--- NOTE | 2024-04-09 03:46 | PC.NURSE ---
Pt asleep, daughter at bedside.
[2024-04-09 04:00] VITALS: BP 150/75; PULSE 72; RESP 16; TEMP 36.4; O2SAT 96
[2024-04-09 05:00] VITALS: BP 148/70; PULSE 75; RESP 16; O2SAT 97
--- NOTE | 2024-04-09 05:02 | PC.NURSE ---
Pt has been asleep, when woken up for reassessment pt states headache is at a 2/10. States feeling much better.
== END 2024-04-09 05:04 | disposition home or self-care (01) ==
PROVIDERS: Emergency Provider Family Medicine; PCP Internal Medicine
DX: R51.9 Headache, unspecified (principal)
CPT/HCPCS: 99283; A9270

== ENCOUNTER 2024-04-16 14:52 | Outpatient (CLI) | payer OTHER, SELFPAY ==
--- OUTSIDE RECORDS SUMMARY | 2024-04-16 14:55 | XMS_ITS | Clinical Summary ---
Author Organization [employer] [facility] Address [place], [place] [address] Care Team Providers Care Perforator Operator Name Role Phone Victor M Kumar MD Primary Care Provider Aldo Arizmendi Unavailable [phone] Allergies Active Allergy Reactions Criticality Noted Date [...] sprayIndications:a llergic conjunctivitis,all ergic rhinitis Inhale 1 [place]uel[place] into both nostrils once daily. 1 Bottle [...] TIA or mul tiple small biswas at [facility] 200810/27/2009 Overview: History of TIA or multiple small biswas at [facility] 2008 Renal Insufficiency 11/09/2010 cr = 1.43* [...] 08/25/2005 Overview: 2003. s/p 2 stents. Overview: SC followed by stent placement Problem list name updated by automated process. Provider to review Anxiety state 10/17/2004 Overview: Overview: Problem list name updated by automated process. Provider to review Overview: LW Modifier: Flight anxiety LW Onset: [id number] ; Anxiety NOS Tobacco use disorder 10/17/2004 Overview: Overview: LW Modifier: quit 08/2004 LW Onset: [id number] ; Tobacco Abuse Resolved Problems Problem Noted [...] Care Team Description 04/08/2024 Home Care Visit [address] [address] Clemencia Santillan, RN NOT TAKEN UNDER HOME CARE 04/07/2024 Home Care Visit [address] [address] Clemencia Santillan RN CARE COORDINATION 04/06/2024 Home Care Visit [address] [address] Daphne Condon, TRACY CARE COORDINATION 04/05/2024 Travel 04/04/2024 Orders Only [facility] [address] [place] [address] Nichol Rojas NP <No scans attached> 03/31/2024 Travel 03/31/2024 Lab Requisition [facility] [phone] Victor M Kumar MD 03/30/2024 7:24 PM CDT - 04/06/2024 10:29 AM CDT Hospital Encounter [facility] [address] [facility] [id number] s, U Hospitalist [facility] [place]ell, MD Samira Gonzalez Megan Catherine, MD Subdural hematoma (HC) (Primary Dx); HIGH BLOOD PRESSURE on lisinopril hctz, carvedilol; Lupus anticoagulant positive; Anticoagulation monitoring, special range 20-40% Discharge Disposition: Home Health 02/27/2024 Lab Requisition [facility] [phone] Victor M Kumar MD from Last 3 Months Immunizations Name Administration Dates Next Due COVID-19 vaccine ([employer] 30mcg/0.3mL) RENEA MICHEL 01/15/2021,12/24/2020 Influenza RIV4 (Age [...] 03/30/2024 7:29 PM CDT Plan of Treatment Health Maintenance Due Date Last Done Comments Depression screening for age 12+ 1967 Hepatitis C screening for ag e 18-79 1973 Mammogram for age 45-75 10/11/2012 10/11/2011 Colonoscopy through age 75 11/17/201511/17 (Completed outside of [facility]), 10/29/2005 (Completed outside of [facility]) BMI (ht and wt on same day) [...] SCREEN FFDM (IA) Routine 10/11/2011 4:12 PM RESEARCH DEVELOPMENT MANAGER Screening breast examination from Last 3 Months or Most Recently Relevant to Health Maintenance Results * SCAN-CARDIAC STRIP (04/06/2024 9:35 AM CDT) Scanner OTHER * (ABNORMAL) GLUCOSE METER (04/06/2024 7:38 AM CDT) Only the most recent of28 resultswithin the time period is included. GLUCOSE METER 175(H) 65 - 100 mg/dL 04/06/2024 7:47 AM CDT [facility] Blood BLOOD SPECIMEN / Unknown 04/06/2024 7:38 AM CDT 04/06/2024 7:47 AM CDT Nuvia Hogan MD CHEMISTRY [facility] SENDOUT [place]NAL ZIP [phone] [place] [address] * CT HEAD BRAIN WO (04/05/2024 9:33 [...] EXAM: CT HEAD BRAIN WITHOUT CONTRAST LOCATION: [facility] DATE: 04/05/2024 INDICATION: Stroke, [...] of the 21st Century Cures Act, medical imagingexams and procedure reports are released immediately into your electronicmedical record. You may view this report before your referring provider.If you have questions, please contact your health care provider. EXAM: CT HEAD BRAIN WITHOUT CONTRAST LOCATION: [facility] DATE: 04/05/2024 INDICATION: Stroke, [...] CORTISOL,TOTAL 11.1 ug/dL 04/05/2024 3:46 PM CDT [facility] Blood BLOOD SPECIMEN / Unknown Butterfly / Unknown 04/05/2024 9:07 AM CDT 04/05/2024 9:39 AM CDT Narrative [facility] - 04/05/2024 3:46 PM CDT Cortisol [...] Nuvia Hogan MD CHEMISTRY Performing Organization Address [facility] Co de Phone Number [facility] SENDOUT INTERNAL ZIP [address] [place] [address] * TSH (04/05/2024 9:07 AM CDT) TSH 1.90 0.27 - 4.20 uIU/mL 04/05/2024 3:45 PM CDT [facility] Blood BLOOD SPECIMEN / Unknown Butterfly / Unknown 04/05/2024 9:07 AM CDT 04/05/2024 9:39 AM CDT Narrative [facility] - 04/05/2024 3:45 PM CDT In Adults, TSH values between 5.00 and 10.00 uIU/ml do not necessarily indicate the presence of Hypothyroidism. Correlation with clinical findings such as presence of goiter and/or Thyroperoxidase (TPO) Antibody may be helpful. For more information please refer to KAYLEE 2004; 291: 228-238. Nuvia Hogan MD CHEMISTRY Performing Organization Address [facility] Co la Phone Number [facility] SENDOUT INTERNAL [facility] [address] [place] [address] * (ABNORMAL) PLATELET COUNT (04/05/2024 9:07 AM CDT) Only the most recent of2 resultswithin the time period is included. Pathologist [facility] PLATELET COUNT 124(L) 140 - 440 thou/cu mm 04/05/2024 9:48 AM CDT [facility] MPV 10.1 6.5 - 11.0 fL 04/05/2024 9:48 AM CDT [facility] Blood BLOOD SPECIMEN / Unknown Butterfly / Unknown 04/05/2024 9:07 AM CDT 04/05/2024 9:39 AM CDT Nuvia Hogan MD HEMATOLOGY Performing Organization Address City/[facility]/ZIP Co de Phone Number [facility] SENDOUT INTERNAL ZIP [address] [place] [address] * (ABNORMAL) WHITE BLOOD COUNT (04/05/2024 9:07 AM CDT) Only the most recent of2 resultswithin the time period is included. WHITE BLOOD COUNT 3.5(L) 4.5 - 11.0 thou/cu mm 04/05/2024 9:48 AM CDT [facility] NRBC 0.0 % 04/05/2024 9:48 AM CDT [facility] ABS NRBC 0.0 thou /cu mm 04/05/2024 9:48 AM CDT [facility] Blood BLOOD SPECIMEN / Unknown Butterfly / Unknown 04/05/2024 9:07 AM CDT 04/05/2024 9:39 AM CDT Nuvia Hogan MD HEMATOLOGY [facility] SENDOUT INTERNAL ZIP [address] [place] [address] * (ABNORMAL) HEMOGLOBIN (04/05/2024 9:07 AM CDT) Only the most recent of2 resultswithin the time period is included. Pathologist [facility] HEMOGLOBIN 9.7(L) 12.0 - 16.0 g/dL 04/05/2024 9:48 AM CDT [facility] MCV 80 80 - 100 fL 04/05/2024 9:48 AM CDT [facility] Blood BLOOD SPECIMEN / Unknown Butterfly / Unknown 04/05/2024 9:07 AM CDT 04/05/2024 9:39 AM CDT Nuvia Hogan MD HEMATOLOGY [facility] SENDOUT INTERNAL ZIP [address] [place] [address] * (ABNORMAL) SODIUM (04/05/2024 9:07 AM CDT) Only the most recent of8 resultswithin the time period is included. SODIUM 131(L) 136 - 145 mmol/L 04/05/2024 10:09 AM CDT [facility] Blood BLOOD SPECIMEN / Unknown Butterfly / Unknown 04/05/2024 9:07 AM CDT 04/05/2024 9:39 AM CDT Nuvia Hogan MD CHEMISTRY Performing Organization Address [facility] Co de Phone Number [facility] SENDOUT INTERNAL ZIP [address] [address] [place] [address] * POTASSIUM (04/05/2024 9:07 AM CDT) Only the most recent of3 resultswithin the time period is included. POTASSIUM 3.6 3.5 - 5.1 mmol/L 04/05/2024 10:09 AM CDT [facility] Blood BLOOD SPECIMEN / Unknown Butterfly / Unknown 04/05/2024 9:07 AM CDT 04/05/2024 9:39 AM CDT Nuvia Hogan MD CHEMISTRY Performing Organization Address [facility] de Phone Number [facility] SENDOUT INTERNAL ZIP [address] [address] [place] [address] * (ABNORMAL) CREATININE (04/05/2024 9:07 AM CDT) Only the most recent of2 resultswithin the time period is included. eGFR 56(L) >90 mL/min/1.7 3m2 04/05/2024 10:09 AM CDT [facility] Comment:As of 2022, eG FR is calculated by the CKD-EPI creatinine equation without race adjustment. ??eGFR can be influenced by muscle mass, exercise, and diet. ??The reported eGFR is an estimation only and is only applicable if the renal function is stable. CREATININE 1.08(H) 0.50 - 0.90 mg/dL 04/05/2024 10:09 AM CDT [facility] Blood BLOOD SPECIMEN / Unknown Butterfly / Unknown 04/05/2024 9:07 AM CDT 04/05/2024 9:39 AM CDT Nuvia Hogan MD CHEMISTRY Performing Organization Address [facility] Co de Phone Number [facility] SENDOUT INTERNAL ZIP [phone] [place] [address] * (ABNORMAL) CO2,TOTAL (04/05/2024 9:07 AM CDT) Only the most recent of2 resultswithin the time period is included. CO2,TOTAL 18(L) 22 - 29 mmol/L 04/05/2024 10:09 AM CDT [facility] Blood BLOOD SPECIMEN / Unknown Butterfly / Unknown 04/05/2024 9:07 AM CDT 04/05/2024 9:39 AM CDT Nuvia Hogan MD CHEMISTRY Performing Organization Address [facility] Co de Phone Number [facility] SENDOUT INTERNAL ZIP [address] [place] [address] * CALCIUM (04/05/2024 9:07 AM CDT) Only the most recent of2 resultswithin the time period is included. CALCIUM 8.8 8.8 - 10.2 mg/dL 04/05/2024 10:09 AM CDT [facility] Blood BLOOD SPECIMEN / Unknown Butterfly / Unknown 04/05/2024 9:07 AM CDT 04/05/2024 9:39 AM CDT Nuvia Hogan MD CHEMISTRY Performing Organization Address [facility] Co de Phone Number [facility] SENDOUT INTERNAL ZIP [address] [place] [address] * SCAN-CARDIAC STRIP (04/04/2024 7:57 AM CDT) [...] provider. EXAM: CT SPINE CERVICAL WO LOCATION: [facility] DATE: 04/04/2024 INDICATION: Hemorrhage [...] provider. EXAM: CT SPINE CERVICAL WO LOCATION: [facility] DATE: 04/04/2024 INDICATION: Hemorrhage [...] URINE 62 mmol/L 04/03/2024 1:11 AM CDT [facility] Comment:No Reference Range D efined. Urine URINE SPECIMEN / Unknown Non-Blood / Unknown 04/02/2024 8:45 PM CDT 04/02/2024 8:55 PM CDT Nuvia Hogan MD URINE Performing Organization Address [facility] Co de Phone Number [facility] [address] [place] [address], * OSMOLALITY,URINE (04/02/2024 8:45 PM CDT) OSMOLALITY,URI NE 397 50 - 1,400 mOsmol/kg 04/03/2024 1:37 AM CDT [facility] Urine URINE SPECIMEN / Unknown Non-Blood / Unknown 04/02/2024 8:45 PM CDT 04/02/2024 8:55 PM CDT Nuvia Hogan MD URINE Performing Organization Address City/[facility] Co de Phone Number [facility] [address] [place] [address], * SCAN-CARDIAC STRIP (04/02/2024 10:27 AM CDT) Scanner OTHER * OSMOLALITY (04/02/2024 9:30 AM CDT) Pathologist [facility] OSMOLALITY 278 275 - 300 mOsmol/kg 04/02/2024 4:11 PM CDT [facility] Blood BLOOD SPECIMEN / Unknown Venipuncture / Unknown 04/02/2024 9:30 AM CDT 04/02/2024 9:43 AM CDT Nuvia Hogan MD [facility]STRY [facility] [address] [place] [address], * (ABNORMAL) BASIC METABOLIC PANEL (04/02/2024 9:30 AM CDT) Only the most recent of4 resultswithin the time period is included. Pathologist [facility] SODIUM 126(L) 136 - 145 mmol/L 04/02/2024 10:10 AM [facility] POTASSIUM 3.7 3.5 - 5.1 mmol/L 04/02/2024 10:10 AM [facility] CHLORIDE 96(L) 98 - 107 mmol/L 04/02/2024 10:10 AM [facility] CO2,TOTAL 18(L) 22 - 29 mmol/L 04/02/2024 10:10 AM [facility] ANION GAP 12 5 - 18 04/02/2024 10:10 AM [facility] GLUCOSE 199(H) 70 - 99 mg/dL 04/02/2024 10:10 AM [facility] CALCIUM 8.7(L) 8.8 - 10.2 mg/dL 04/02/2024 10:10 AM [facility] BUN 21 8 - 23 mg/dL 04/02/2024 10:10 AM [facility] CREATININE 1.23(H) 0.50 - 0.90 mg/dL 04/02/2024 10:10 AM [facility] BUN/CREAT RATIO 17 10 - 20 10:10 AM CDT [facility] eGFR 48(L) >90 mL/min/1.7 3m2 04/02/2024 10:10 AM CDT [facility] Comment:As of 2022, eG FR is calculated by the CKD-EPI creatinine equation without race adjustment. ??eGFR can be influenced by muscle mass, exercise, and diet. ??The reported eGFR is an estimation only and is only applicable if the renal function is stable. Blood BLOOD SPECIMEN / Unknown Venipuncture / Unknown 04/02/2024 9:30 AM CDT 04/02/2024 9:43 AM CDT Nuvia Hogan MD CHEMISTRY [facility] SENDOUT INTERNAL ZIP [phone] [place] [address] * SCAN CORRESP-IMAGING (04/02/2024 8:47 AM CDT) [...] EXAM: US VENOUS LOWER EXTREMITY BILATERAL LOCATION: [facility] DATE: 04/01/2024 INDICATION: Swelling [...] EXAM: US VENOUS LOWER EXTREMITY BILATERAL LOCATION: [facility] DATE: 04/01/2024 INDICATION: Swelling [...] identified within the right lower extremity. Nichol Rojas NP US * (ABNORMAL) CBC WITH AUTO DIFFERENTIAL (04/01/2024 5:22 AM CDT) WHITE BLOOD COUNT 4.0(L) 4.5 - 11.0 thou/cu mm 04/01/2024 5:45 AM [facility] RED BLOOD COUNT 3.92(L) 4.00 - 5.20 mil/cu mm 04/01/2024 5:45 AM [facility] HEMOGLOBIN 10.3(L) 12.0 - 16.0 g/dL 04/01/2024 5:45 AM [facility] HEMATOCRIT 31.9(L) 33.0 - 51.0 % 04/01/2024 5:45 AM [facility] MCV 81 80 - 100 fL 04/01/2024 5:45 AM [facility] MCH 26.3 26.0 - 34.0 pg 04/01/2024 5:45 AM [facility] MCHC 32.3 32.0 - 36.0 g/dL 04/01/2024 5:45 AM [facility] RDW 14.3 11.5 - 15.5 % 04/01/2024 5:45 AM [facility] PLATELET COUNT 150 140 - 440 thou/cu mm 04/01/2024 5:45 AM [facility] MPV 9.5 6.5 - 11.0 fL 04/01/2024 5:45 AM [facility] NRBC 0.0 % 04/01/2024 5:45 AM [facility] ABS NRBC 0.0 thou /cu mm 04/01/2024 5:45 AM [facility] % NEUT 76.4 % 04/01/2024 5:45 AM [facility] % LYMPH 15.2 % 04/01/2024 5:45 AM [facility] % MONO 7.0 % 04/01/2024 5:45 AM [facility] % EOS 1.0 % 04/01/2024 5:45 AM [facility] % BASO 0.2 % 04/01/2024 5:45 AM [facility] % IMMATURE GRAN (METAS,MYELOS,MD OS) 0.2 % 04/01/2024 5:45 AM [facility] ABSOLUTE NEUTROPHILS 3.1 1.7 - 7.0 thou/cu mm 04/01/2024 5:45 AM [facility] ABSOLUTE LYMPHOCYTES 0.6(L) 0.9 - 2.9 thou/cu mm 04/01/2024 5:45 AM CDT [facility] ABSOLUTE MONOCYTES 0.3 <0.9 thou/cu mm 04/01/2024 5:45 AM CDT [facility] ABSOLUTE EOSINOPHILS 0.0 <0.5 thou/cu mm 04/01/2024 5:45 AM CDT [facility] ABSOLUTE BASOPHILS 0.0 <0.3 thou/cu mm 04/01/2024 5:45 AM CDT [facility] ABSOLUTE IMMATURE GRANULOCYTES(MET ,MYELOS,PROS) 0.0 <0.3 thou/cu mm 04/01/2024 5:45 AM CDT [facility] Blood BLOOD SPECIMEN / Unknown Venipuncture / Unknown 04/01/2024 5:22 AM CDT 04/01/2024 5:29 AM CDT Pinky Andrews NP HEMATOLOGY [facility] SENDOUT INTERNAL ZIP [address] [place] [address] * PROTIME-INR (04/01/2024 5:22 AM CDT) Only the most recent of3 resultswithin the time period is included. INR 1.1 <1.3 04/01/2024 5:41 AM CDT [facility] PROTIME 11.8 10.3 - 12.3 sec 04/01/2024 5:41 AM CDT [facility] Blood BLOOD SPECIMEN / Unknown Venipuncture / Unknown 04/01/2024 5:22 AM CDT 04/01/2024 5:29 AM CDT Narrative [facility] - 04/01/2024 5:41 AM CDT ?Therapeutic [...] Pinky Andrews NP HEMATOLOGY Performing Organization Address City/[facility]/ZIP Co de Phone Number [facility] SENDOUT INTERNAL ZIP [address] [place] [address] * FACTOR 10 CHROMOGENIC (04/01/2024 5:22 AM CDT) Only the most recent of4 resultswithin the time period is included. FACTOR 10 CHROMOGENIC 85 65 - 130 % 04/01/2024 7:22 AM CDT [facility] Blood BLOOD SPECIMEN / Unknown Venipuncture / Unknown 04/01/2024 5:22 AM CDT 04/01/2024 5:29 AM CDT Narrative [facility] - 04/01/2024 7:22 AM CDT Therapeutic Range 20-40% Nuvia Hogan MD SEND OUTS Performing Organization Address [facility] Co de Phone Number [facility] [address] [place] [address], * SCAN-CARDIAC STRIP (03/31/2024 10:18 AM CDT) Scanner OTHER * (ABNORMAL) APTT (03/31/2024 5:18 AM CDT) Only the most recent of2 resultswithin the time period is included. APTT 27(L) 28 - 36 sec 03/31/2024 6:11 AM CDT [facility] Blood BLOOD SPECIMEN / Unknown Venipuncture / Unknown 03/31/2024 5:18 AM CDT 03/31/2024 5:56 AM CDT Narrative [facility] - 03/31/2024 6:11 AM CDT Therapeutic Range: 57-87 seconds Sarahi BENITEZ HEMATOLOGY Performing Organization Address City/[facility]/ZIP Co de Phone Number [facility] SENDOUT INTERNAL ZIP [address] [address] [place] [address] * SCAN-CARDIAC STRIP (03/30/2024 9:52 PM CDT) Scanner OTHER * (ABNORMAL) CBC W PLT NO DIFF (03/30/2024 8:20 PM CDT) WHITE BLOOD COUNT 4.0(L) 4.5 - 11.0 thou/cu mm 03/30/2024 8:42 PM CDT [facility] RED BLOOD COUNT 4.01 4.00 - 5.20 mil/cu mm 03/30/2024 8:42 PM CDT [facility] HEMOGLOBIN 10.9(L) 12.0 - 16.0 g/dL 03/30/2024 8:42 PM CDT [facility] HEMATOCRIT 32.2(L) 33.0 - 51.0 % 03/30/2024 8:42 PM CDT [facility] MCV 80 80 - 100 fL 03/30/2024 8:42 PM CDT [facility] MCH 27.2 26.0 - 34.0 pg 03/30/2024 8:42 PM CDT [facility] MCHC 33.9 32.0 - 36.0 g/dL 03/30/2024 8:42 PM CDT [facility] RDW 14.1 11.5 - 15.5 % 03/30/2024 8:42 PM CDT [facility] PLATELET COUNT 164 140 - 440 thou/cu mm 03/30/2024 8:42 PM CDT [facility] MPV 10.3 6.5 - 11.0 fL 03/30/2024 8:42 PM CDT [facility] NRBC 0.0 % 03/30/2024 8:42 PM CDT [facility] ABS NRBC 0.0 thou /cu mm 03/30/2024 8:42 PM CDT [facility] Blood BLOOD SPECIMEN / Unknown Venipuncture / Unknown 03/30/2024 8:20 PM CDT 03/30/2024 8:38 PM CDT Sarahi BENITEZ HEMATOLOGY [facility] SENDOUT INTERNAL ZIP [address] [place] [address] * (ABNORMAL) FIBRINOGEN,QUANTITATIVE (03/30/2024 8:20 PM CDT) FIBRINOGEN,CIELO NTITATIVE 453(H) 193 - 401 mg/dL 03/30/2024 8:51 PM CDT [facility] Blood BLOOD SPECIMEN / Unknown Venipuncture / Unknown 03/30/2024 8:20 PM CDT 03/30/2024 8:38 PM CDT Sarahi BENITEZ HEMATOLOGY [facility] SENDOUT INTERNAL ZIP [phone] [place] [address] * PHOSPHORUS (03/30/2024 8:20 PM CDT) PHOSPHORUS 3.6 2.5 - 4.5 mg/dL 03/30/2024 8:59 PM CDT [facility] Blood BLOOD SPECIMEN / Unknown Venipuncture / Unknown 03/30/2024 8:20 PM CDT 03/30/2024 8:38 PM CDT Sarahi BENITEZ CHEMISTRY [facility] SENDOUT INTERNAL ZIP [phone] [place] [address] * MAGNESIUM (03/30/2024 8:20 PM CDT) Pathologist [facility] MAGNESIUM 1.6 1.6 - 2.4 mg/dL 03/30/2024 8:59 PM CDT [facility] Blood BLOOD SPECIMEN / Unknown Venipuncture / Unknown 03/30/2024 8:20 PM CDT 03/30/2024 8:38 PM CDT Sarahi BENITEZ CHEMISTRY [facility] SENDOUT INTERNAL ZIP [phone] [place] [address] * (ABNORMAL) Lipid Panel - Fasting (04/12/2018 11:31 AM CDT) CHOLESTEROL,TOTAL 139 100 - 199 mg/dL 04/12/2018 1:39 PM T [facility] TRIGLYCERIDES 282(H) <150 mg/dL 04/12/2018 1:39 PM T [facility] HDL CHOLESTEROL 37(L) >40 mg/dL 8 1:39 PM T [facility] NON-HDL CHOLESTEROL 102 <145 mg/dl 04/12/2018 1:39 PM [facility] CHOL/HDL RATIO 3.76 <4.50 04/12/2018 1:39 PM [facility] LDL CHOLESTEROL 46 <=130 mg/dL 04/12/2018 1:39 PM T [facility] PROVIDER ORDERED STATUS RANDOM 04/12/2018 1:39 PM [facility] Blood BLOOD SPECIMEN / Unknown Venipuncture / Unknown 04/12/2018 11:31 AM CDT 04/12/2018 11:36 AM CDT Antonio Rodríguez MD CHEMISTRY Performing Organization Address City/State/[facility] Co de Phone Number [facility] SENDOUT INTERNAL ZIP [address] [address] [place] [address] * XR MAMMO BILAT SCREEN FFDM (10/11/2011 4:12 PM RESEARCH DEVELOPMENT MANAGER) Anatomical Region Laterality Modality BREASTS, Breast Left, Breast Right Bilateral Mammography Impressions 10/12/2011 8:25 AM RESEARCH DEVELOPMENT MANAGER ??There is no radiographic evidence for malignancy. ??Recommend annual mammograms. A lay language report of this examination will be provided to the patient. MAMMOGRAM ASSESSMENT: ??ACR 1 Negative Narrative 10/12/2011 8:25 AM RESEARCH DEVELOPMENT MANAGER XR MAMMO BILAT SCREEN FFDM [G0202.0] CLINICAL [...] or areas of architectural distortion. Procedure Note Dieudonne, Camilla A, MD - 10/12/2011 XR MAMMO BILAT SCREEN [...] 1:04 PM 04/17/2018 2:50 PM Care Teams Perforator Operator Relationship Specialty Start Date End Date Victor M Kumar MD [address] [place] [address] PCP - General Emergency Medicine 11/01/16 Aldo Arizmendi COTA [address] [place] [id number] Occupational Therapy 12/06/23
== END 2024-04-16 14:53 | disposition home or self-care (01) ==
LOC: LKVREF 14:53
PROVIDERS: PCP Internal Medicine; Visit Provider Otolaryngology
DX: K13.79 Other lesions of oral mucosa (principal)
CPT/HCPCS: 82607; 85130

== ENCOUNTER 2024-04-18 10:38 | Outpatient (CLI) | payer OTHER, SELFPAY ==
--- OUTSIDE RECORDS SUMMARY | 2024-04-18 10:41 | XMS_ITS | Clinical Summary ---
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 1 Bottle [...] TIA or mul tiple small biswas at [facility] 200810/27/2009 Overview: History of TIA or multiple small biswas at [facility] 2008 Renal Insufficiency 11/09/2010 cr [...] 08/25/2005 Overview: 2003. s/p 2 stents. Overview: IA followed by stent placement Problem list name updated by automated process. Provider to review Anxiety state 10/17/2004 Overview: Overview: Problem list name updated by automated process. Provider to review Overview: LW Modifier: Flight anxiety LW Onset: [id number] ; Anxiety NOS Tobacco use disorder 10/17/2004 Overview: Overview: LW Modifier: quit 08/2004 LW Onset: [id number] ; Tobacco Abuse Resolved Problems Problem Noted [...] Encounters Date Type Department Care Team Description 04/16/2024 Lab Requisition [facility] [phone] Victor M Kumar MD 04/08/2024 Home Care Visit [address] [address] Clemencia Santillan, RN NOT TAKEN UNDER HOME CARE 04/07/2024 Home Care Visit [address] [address] Clemencia Santillan RN CARE COORDINATION 04/06/2024 Home Care Visit [address] [address] Daphne Condon, TRACY CARE COORDINATION 04/05/2024 Travel 04/04/2024 Orders Only [facility] [address] [place] [phone] Nichol Rojas NP <No scans attached> 03/31/2024 Travel 03/31/2024 Lab Requisition [facility] [phone] Victor M Kumar MD 03/30/2024 7:24 PM CDT - 04/06/2024 10:29 AM CDT Hospital Encounter [address] [address] s, U Hospitalist [facility] Gareth Etienne MD Schmidt, Nuvia Alicea MD Subdural hematoma (HC) (Primary Dx); HIGH BLOOD PRESSURE on lisinopril hctz, carvedilol; Lupus anticoagulant positive; Anticoagulation monitoring, special range 20-40% Discharge Disposition: Home Health 02/27/2024 Lab Requisition [facility] [phone] Victor M Kumar MD from Last 3 Months Immunizations Name Administration Dates Next Due COVID-19 vaccine ([employer] 30mcg/0.3mL) RENEA MICHEL 01/15/2021,12/24/2020 Influenza RIV4 (Age [...] through age 75 11/17/201511/17 (Completed outside of [facility]), 10/29/2005 (Completed outside of [facility]) BMI (ht and wt on same day) for age 18+ 07/17/2019 07/17/2018, 08/15/2017 DEXA/DXA scan for age 65+ 2020 Medicare Wellness for age 65+ 2020 Pneumococcal series for age 65+ (4 of 4 - PPSV23 or PCV20) 12/15/2021 12/15/2020, 10/03/2013, 09/06/2000 Lipids for age 45-75 04/12/2023 04/12/2018, 09/05/2011, 04/26/2011, Additional history exists COVID-19 vaccine series (2022- season) 2023 08/21/2023, 07/25/2022, 02/06/2022, Additional history exists Influenza for age 65+ 06/29/2024 08/12/2020 , 08/09/2019, 07/13/2018, Additional history exists Tetanus booster 08/12/2030 08/12/2020, 02/26, 02/27/2008, Additional history exists Zoster (shingles) series for age 50+ Completed 10/13/2019, 03/28/2019 Tdap Completed 08/12/2020, 06/07/2007 Procedures Procedure Name Priority Date/Time Associated Diagnosis Comments FACTOR 10 CHROMOGENIC Routine 04/16/2024 1:48 PM CDT SCAN-CARDIAC STRIP 04/06/2024 9: 35 AM CDT [...] SCREEN FFDM (IA) Routine 10/11/2011 4:12 PM AUGER SUPERVISOR Screening breast examination from Last 3 Months or Most Recently Relevant to Health Maintenance Results * FACTOR 10 CHROMOGENIC (04/16/2024 1:48 PM CDT) Only the most recent of5 resultswithin the time period is included. Pathologist [facility] FACTOR 10 CHROMOGENIC 89 65 - 130 % 04/16/2024 8:26 PM CDT [facility] Blood BLOOD SPECIMEN / Unknown Client Collect / Unknown 04/16/2024 1:48 PM CDT 04/16/2024 3:21 PM CDT Narrative [facility] - 04/16/2024 8:26 PM CDT Therapeutic Range 20-40% Victor M Kumar MD SEND OUTS [facility] [address] [place] [address], * SCAN-CARDIAC STRIP (04/06/2024 9:35 AM CDT) Scanner OTHER * (ABNORMAL) GLUCOSE METER (04/06/2024 7:38 AM CDT) Only the most recent of28 resultswithin the time period is included. GLUCOSE METER 175(H) 65 - 100 mg/dL 04/06/2024 7:47 AM CDT [facility] Blood BLOOD SPECIMEN / Unknown 04/06/2024 7:38 AM CDT 04/06/2024 7:47 AM CDT Nuvia Hogan MD CHEMISTRY [facility] SENDOUT INTERNAL ZIP [address] [place] [address] * CT HEAD BRAIN WO (04/05/2024 9:33 [...] EXAM: CT HEAD BRAIN WITHOUT CONTRAST LOCATION: [facility] DATE: 04/05/2024 INDICATION: Stroke, follow-up. [...] EXAM: CT HEAD BRAIN WITHOUT CONTRAST LOCATION: [facility] DATE: 04/05/2024 INDICATION: Stroke, follow-up. [...] CORTISOL,TOTAL 11.1 ug/dL 04/05/2024 3:46 PM CDT [facility] Blood BLOOD SPECIMEN / Unknown Butterfly / Unknown 04/05/2024 9:07 AM CDT 04/05/2024 9:39 AM CDT [facility] - 04/05/2024 3:46 PM CDT Cortisol ?Morning Hours ?6:00 ??AM - 10:00 AM ?(4.8-19.5 ug/dL) Cortisol ?Afternoon Hours ??4:00 ??PM - ??8:00 PM ?(2.5-11.9 ug/dL) ? Biotin supplements may cause clinically significant interference for this test assay. ??If interference is suspected, it is strongly recommended that biotin is discontinued for at least one week prior to retesting. Nuvia Hogan MD CHEMISTRY [facility] SENDOUT INTERNAL ZIP [address] [place] [address] * TSH (04/05/2024 9:07 AM CDT) TSH 1.90 0.27 - 4.20 uIU/mL 04/05/2024 3:45 PM CDT [facility] Blood BLOOD SPECIMEN / Unknown Butterfly / Unknown 04/05/2024 9:07 AM CDT 04/05/2024 9:39 AM CDT [facility] - 04/05/2024 3:45 PM CDT In Adults, TSH values between 5.00 and 10.00 uIU/ml do not necessarily indicate the presence of Hypothyroidism. Correlation with clinical findings such as presence of goiter and/or Thyroperoxidase (TPO) Antibody may be helpful. For more information please refer to KAYLEE 2004; 291: 228-238. Nuvia Hogan MD CHEMISTRY Performing Organization Address [facility]/ZIP Co de Phone Number [facility] SENDOUT INTERNAL ZIP [address] [address] [place] [address] * (ABNORMAL) PLATELET COUNT (04/05/2024 9:07 AM CDT) Only the most recent of2 resultswithin the time period is included. PLATELET COUNT 124(L) 140 - 440 thou/cu mm 04/05/2024 9:48 AM CDT [facility] MPV 10.1 6.5 - 11.0 fL 04/05/2024 9:48 AM CDT [facility] Blood BLOOD SPECIMEN / Unknown Butterfly / Unknown 04/05/2024 9:07 AM CDT 04/05/2024 9:39 AM CDT Nuvia Hogan MD HEMATOLOGY Performing Organization Address [facility] Co de Phone Number [facility] SENDOUT INTERNAL ZIP [address] [address] [place] [address] * (ABNORMAL) WHITE BLOOD COUNT (04/05/2024 9:07 AM CDT) Only the most recent of2 resultswithin the time period is included. WHITE BLOOD COUNT 3.5(L) 4.5 - 11.0 thou/cu mm 04/05/2024 9:48 AM CDT [facility] NRBC 0.0 % 04/05/2024 9:48 AM CDT [facility] ABS NRBC 0.0 thou /cu mm 04/05/2024 9:48 AM CDT [facility] Blood BLOOD SPECIMEN / Unknown Butterfly / Unknown 04/05/2024 9:07 AM CDT 04/05/2024 9:39 AM CDT Nuvia Hogan MD HEMATOLOGY Performing Organization Address [facility]/ZIP Co de Phone Number [facility] SENDOUT INTERNAL ZIP [address] [address] [place] [address] * (ABNORMAL) HEMOGLOBIN (04/05/2024 9:07 AM CDT) Only the most recent of2 resultswithin the time period is included. HEMOGLOBIN 9.7(L) 12.0 - 16.0 g/dL 04/05/2024 9:48 AM CDT [facility] MCV 80 80 - 100 fL 04/05/2024 9:48 AM CDT [facility] Blood BLOOD SPECIMEN / Unknown Butterfly / Unknown 04/05/2024 9:07 AM CDT 04/05/2024 9:39 AM CDT Nuvia Hogan MD HEMATOLOGY Performing Organization Address [facility] de Phone Number [facility] SENDOUT INTERNAL ZIP [address] [place] [address] * (ABNORMAL) SODIUM (04/05/2024 9:07 AM CDT) Only the most recent of8 resultswithin the time period is included. SODIUM 131(L) 136 - 145 mmol/L 04/05/2024 10:09 AM CDT [facility] Blood BLOOD SPECIMEN / Unknown Butterfly / Unknown 04/05/2024 9:07 AM CDT 04/05/2024 9:39 AM CDT Nuvia Hogan MD CHEMISTRY Performing Organization Address [facility] de Phone Number [facility] SENDOUT INTERNAL ZIP [address] [place] [address] * POTASSIUM (04/05/2024 9:07 AM CDT) Only the most recent of3 resultswithin the time period is included. POTASSIUM 3.6 3.5 - 5.1 mmol/L 04/05/2024 10:09 AM CDT [facility] Blood BLOOD SPECIMEN / Unknown Butterfly / Unknown 04/05/2024 9:07 AM CDT 04/05/2024 9:39 AM CDT Nuvia Hogan MD CHEMISTRY Performing Organization Address City/[facility]/ZIP Co de Phone Number [facility] SENDOUT INTERNAL ZIP [address] [address] [place] [address] * (ABNORMAL) CREATININE (04/05/2024 9:07 AM CDT) Only the most recent of2 resultswithin the time period is included. eGFR 56(L) >90 mL/min/1.7 3m2 04/05/2024 10:09 AM CDT [facility] Comment:As of 2022, eG FR is calculated by the CKD-EPI creatinine equation without race adjustment. ??eGFR can be influenced by muscle mass, exercise, and diet. ??The reported eGFR is an estimation only and is only applicable if the renal function is stable. CREATININE 1.08(H) 0.50 - 0.90 mg/dL 04/05/2024 10:09 AM CDT [facility] Blood BLOOD SPECIMEN / Unknown Butterfly / Unknown 04/05/2024 9:07 AM CDT 04/05/2024 9:39 AM CDT Nuvia Hogan MD CHEMISTRY Performing Organization Address [facility] Co de Phone Number [facility] SENDOUT INTERNAL ZIP [address] [place] [address] * (ABNORMAL) CO2,TOTAL (04/05/2024 9:07 AM CDT) Only the most recent of2 resultswithin the time period is included. CO2,TOTAL 18(L) 22 - 29 mmol/L 04/05/2024 10:09 AM CDT [facility] Blood BLOOD SPECIMEN / Unknown Butterfly / Unknown 04/05/2024 9:07 AM CDT 04/05/2024 9:39 AM CDT Nuvia Hogan MD CHEMISTRY Performing Organization Address [facility]/ZIP Co de Phone Number [facility] SENDOUT INTERNAL ZIP [address] [address] [place] [address] * CALCIUM (04/05/2024 9:07 AM CDT) Only the most recent of2 resultswithin the time period is included. CALCIUM 8.8 8.8 - 10.2 mg/dL 04/05/2024 10:09 AM CDT [facility] Blood BLOOD SPECIMEN / Unknown Butterfly / Unknown 04/05/2024 9:07 AM CDT 04/05/2024 9:39 AM CDT Nuvia Hogan MD CHEMISTRY [facility] SENDOUT INTERNAL ZIP [address] [address] [place] [address] * SCAN-CARDIAC STRIP (04/04/2024 7:57 AM CDT) [...] provider. EXAM: CT SPINE CERVICAL WO LOCATION: [facility] DATE: 04/04/2024 INDICATION: Hemorrhage and [...] provider. EXAM: CT SPINE CERVICAL WO LOCATION: [facility] DATE: 04/04/2024 INDICATION: Hemorrhage and [...] acute process compared to 04/01/2024. Nichol Rojas CUBE CUTTER CT * SCAN-CARDIAC STRIP (04/03/2024 8:51 AM CDT) Scanner OTHER * SODIUM,RANDOM URINE (04/02/2024 8:45 PM CDT) SODIUM,RANDOM URINE 62 mmol/L 04/03/2024 1:11 AM CDT [facility] Comment:No Reference Range D efined. Urine URINE SPECIMEN / Unknown Non-Blood / Unknown 04/02/2024 8:45 PM CDT 04/02/2024 8:55 PM CDT Nuvia Hogan MD URINE Performing Organization Address [facility] Co de Phone Number [facility] [address] [address], [place] * OSMOLALITY,URINE (04/02/2024 8:45 PM CDT) OSMOLALITY,URI NE 397 50 - 1,400 mOsmol/kg 04/03/2024 1:37 AM CDT [facility] Urine URINE SPECIMEN / Unknown Non-Blood / Unknown 04/02/2024 8:45 PM CDT 04/02/2024 8:55 PM CDT Nuvia Hogan MD URINE Performing Organization Address [facility] de Phone Number [facility] [address] [id number], [place] * SCAN-CARDIAC STRIP (04/02/2024 10:27 AM CDT) Scanner OTHER * OSMOLALITY (04/02/2024 9:30 AM CDT) OSMOLALITY 278 275 - 300 mOsmol/kg 04/02/2024 4:11 PM CDT [facility] Blood BLOOD SPECIMEN / Unknown Venipuncture / Unknown 04/02/2024 9:30 AM CDT 04/02/2024 9:43 AM CDT Nuvia Hogan MD CHEMISTRY Performing Organization Address [facility] Co de Phone Number [facility] [address] [address], [place] * (ABNORMAL) BASIC METABOLIC PANEL (04/02/2024 9:30 AM CDT) Only the most recent of4 resultswithin the time period is included. SODIUM 126(L) 136 - 145 mmol/L 04/02/2024 10:10 AM [facility] POTASSIUM 3.7 3.5 - 5.1 mmol/L 04/02/2024 10:10 AM [facility] CHLORIDE 96(L) 98 - 107 mmol/L 04/02/2024 10:10 AM [facility] CO2,TOTAL 18(L) 22 - 29 mmol/L 04/02/2024 10:10 AM [facility] ANION GAP 12 5 - 18 04/02/2024 10:10 AM [facility] GLUCOSE 199(H) 70 - 99 mg/dL 04/02/2024 10:10 AM [facility] CALCIUM 8.7(L) 8.8 - 10.2 mg/dL 04/02/2024 10:10 AM [facility] BUN 21 8 - 23 mg/dL 04/02/2024 10:10 AM [facility] CREATININE 1.23(H) 0.50 - 0.90 mg/dL 04/02/2024 10:10 AM [facility] BUN/CREAT RATIO 17 10 - 20 10:10 AM [facility] eGFR 48(L) >90 mL/min/1.7 3m2 04/02/2024 10:10 AM [facility] Comment:As of 2022, eG FR is calculated by the CKD-EPI creatinine equation without race adjustment. ??eGFR can be influenced by muscle mass, exercise, and diet. ??The reported eGFR is an estimation only and is only applicable if the renal function is stable. Blood BLOOD SPECIMEN / Unknown Venipuncture / Unknown 04/02/2024 9:30 AM CDT 04/02/2024 9:43 AM CDT Nuvia Hogan MD CHEMISTRY [facility] SENDOUT INTERNAL ZIP [phone] [place] [address] * SCAN CORRESP-IMAGING (04/02/2024 8:47 AM CDT) [...] EXAM: US VENOUS LOWER EXTREMITY BILATERAL LOCATION: [facility] DATE: 04/01/2024 INDICATION: Swelling COMPARISON: [...] superficial thrombophlebitis. No popliteal cyst. Procedure Note Zurod De La Cruz MD - 04/01/2024 For Patients: As a result of the Cures Act, medical imagingexams and procedure reports are released immediately into your electronicmedical record. You may view this report before your referring provider.If you have questions, please contact your health care provider. EXAM: US VENOUS LOWER EXTREMITY BILATERAL LOCATION: [facility] DATE: 04/01/2024 INDICATION: Swelling COMPARISON: [...] CBC WITH AUTO DIFFERENTIAL (04/01/2024 5:22 AM T) WHITE BLOOD COUNT 4.0(L) 4.5 - 11.0 thou/cu mm 04/01/2024 5:45 AM [facility] RED BLOOD COUNT 3.92(L) 4.00 - 5.20 mil/cu mm 04/01/2024 5:45 AM [facility] HEMOGLOBIN 10.3(L) 12.0 - 16.0 g/dL 04/01/2024 5:45 AM [facility] HEMATOCRIT 31.9(L) 33.0 - 51.0 % 04/01/2024 5:45 AM [facility] MCV 81 80 - 100 fL 04/01/2024 5:45 AM [facility] MCH 26.3 26.0 - 34.0 pg 04/01/2024 5:45 AM [facility] MCHC 32.3 32.0 - 36.0 g/dL 04/01/2024 5:45 AM [facility] RDW 14.3 11.5 - 15.5 % 04/01/2024 5:45 AM [facility] PLATELET COUNT 150 140 - 440 thou/cu mm 04/01/2024 5:45 AM [facility] MPV 9.5 6.5 - 11.0 fL 04/01/2024 5:45 AM CDT [facility] NRBC 0.0 % 04/01/2024 5:45 AM CDT [facility] ABS NRBC 0.0 thou /cu mm 04/01/2024 5:45 AM [facility] % NEUT 76.4 % 04/01/2024 5:45 AM CDT [facility] % LYMPH 15.2 % 04/01/2024 5:45 AM CDT [facility] % MONO 7.0 % 04/01/2024 5:45 AM CDT [facility] % EOS 1.0 % 04/01/2024 5:45 AM T [facility] % BASO 0.2 % 04/01/2024 5:45 AM [facility] % IMMATURE GRAN (METAS,MYELOS,CT OS) 0.2 % 04/01/2024 5:45 AM CDT [facility] ABSOLUTE NEUTROPHILS 3.1 1.7 - 7.0 thou/cu mm 04/01/2024 5:45 AM T [facility] ABSOLUTE LYMPHOCYTES 0.6(L) 0.9 - 2.9 thou/cu mm 04/01/2024 5:45 AM T [facility] ABSOLUTE MONOCYTES 0.3 <0.9 thou/cu mm 04/01/2024 5:45 AM T [facility] ABSOLUTE EOSINOPHILS 0.0 <0.5 thou/cu mm 04/01/2024 5:45 AM T [facility] ABSOLUTE BASOPHILS 0.0 <0.3 thou/cu mm 04/01/2024 5:45 AM T [facility] ABSOLUTE IMMATURE GRANULOCYTES(MET ,MYELOS,PROS) 0.0 <0.3 thou/cu mm 04/01/2024 5:45 AM T [facility] Blood BLOOD SPECIMEN / Unknown Venipuncture / Unknown 04/01/2024 5:22 AM CDT 04/01/2024 5:29 AM CDT Pinky Andrews NP HEMATOLOGY [facility] SENDOUT INTERNAL ZIP [address] [place] [address] * PROTIME-INR (04/01/2024 5:22 AM CDT) Only the most recent of3 resultswithin the time period is included. INR 1.1 <1.3 04/01/2024 5:41 AM CDT [facility] PROTIME 11.8 10.3 - 12.3 sec 04/01/2024 5:41 AM CDT [facility] Blood BLOOD SPECIMEN / Unknown Venipuncture / Unknown 04/01/2024 5:22 AM CDT 04/01/2024 5:29 AM CDT Narrative [facility] - 04/01/2024 5:41 AM CDT ?Therapeutic [...] is on UFH. Pinky Andrews NP HEMATOLOGY [facility] SENDOUT INTERNAL [facility] [id number] [place] [address] * SCAN-CARDIAC STRIP (03/31/2024 10:18 AM CDT) Scanner OTHER * (ABNORMAL) APTT (03/31/2024 5:18 AM CDT) Only the most recent of2 resultswithin the time period is included. APTT 27(L) 28 - 36 sec 03/31/2024 6:11 AM CDT [facility] Blood BLOOD SPECIMEN / Unknown Venipuncture / Unknown 03/31/2024 5:18 AM CDT 03/31/2024 5:56 AM CDT Narrative [facility] - 03/31/2024 6:11 AM CDT Therapeutic Range: 57-87 seconds Sarahi BENITEZ HEMATOLOGY [facility] SENDOUT INTERNAL ZIP [address] [address] [place] [address] * SCAN-CARDIAC STRIP (03/30/2024 9:52 PM CDT) Scanner OTHER * (ABNORMAL) CBC W PLT NO DIFF (03/30/2024 8:20 PM CDT) WHITE BLOOD COUNT 4.0(L) 4.5 - 11.0 thou/cu mm 03/30/2024 8:42 PM CDT [facility] RED BLOOD COUNT 4.01 4.00 - 5.20 mil/cu mm 03/30/2024 8:42 PM CDT [facility] HEMOGLOBIN 10.9(L) 12.0 - 16.0 g/dL 03/30/2024 8:42 PM CDT [facility] HEMATOCRIT 32.2(L) 33.0 - 51.0 % 03/30/2024 8:42 PM CDT [facility] MCV 80 80 - 100 fL 03/30/2024 8:42 PM CDT [facility] MCH 27.2 26.0 - 34.0 pg 03/30/2024 8:42 PM CDT [facility] MCHC 33.9 32.0 - 36.0 g/dL 03/30/2024 8:42 PM CDT [facility] RDW 14.1 11.5 - 15.5 % 03/30/2024 8:42 PM CDT [facility] PLATELET COUNT 164 140 - 440 thou/cu mm 03/30/2024 8:42 PM CDT [facility] MPV 10.3 6.5 - 11.0 fL 03/30/2024 8:42 PM CDT [facility] NRBC 0.0 % 03/30/2024 8:42 PM CDT [facility] ABS NRBC 0.0 thou /cu mm 03/30/2024 8:42 PM CDT [facility] Blood BLOOD SPECIMEN / Unknown Venipuncture / Unknown 03/30/2024 8:20 PM CDT 03/30/2024 8:38 PM CDT Sarahi BENITEZ HEMATOLOGY Performing Organization Address [facility]/ZIP Co de Phone Number [facility] SENDOUT INTERNAL ZIP [address] [place] [address] * (ABNORMAL) FIBRINOGEN,QUANTITATIVE (03/30/2024 8:20 PM CDT) FIBRINOGEN,CIELO NTITATIVE 453(H) 193 - 401 mg/dL 03/30/2024 8:51 PM CDT [facility] Blood BLOOD SPECIMEN / Unknown Venipuncture / Unknown 03/30/2024 8:20 PM CDT 03/30/2024 8:38 PM CDT Sarahi BENITEZ HEMATOLOGY Performing Organization Address [facility]/ZIP Co de Phone Number [facility] SENDOUT INTERNAL ZIP [address] [place] [address] * PHOSPHORUS (03/30/2024 8:20 PM CDT) PHOSPHORUS 3.6 2.5 - 4.5 mg/dL 03/30/2024 8:59 PM CDT [facility] Blood BLOOD SPECIMEN / Unknown Venipuncture / Unknown 03/30/2024 8:20 PM CDT 03/30/2024 8:38 PM CDT Sarahi BENITEZ CHEMISTRY Performing Organization Address [facility]/ZIP Co de Phone Number [facility] SENDOUT INTERNAL ZIP [phone] [place] [id number] * MAGNESIUM (03/30/2024 8:20 PM CDT) MAGNESIUM 1.6 1.6 - 2.4 mg/dL 03/30/2024 8:59 PM CDT [facility] Blood BLOOD SPECIMEN / Unknown Venipuncture / Unknown 03/30/2024 8:20 PM CDT 03/30/2024 8:38 PM CDT Sarahi BENITEZ CHEMISTRY Performing Organization Address City/[facility]/ZIP Co de Phone Number [facility] SENDOUT INTERNAL ZIP [phone] [place] [address] * (ABNORMAL) Lipid Panel - Fasting (04/12/2018 11:31 AM CDT) CHOLESTEROL,TOTAL 139 100 - 199 mg/dL 04/12/2018 1:39 PM CDT [facility] TRIGLYCERIDES 282(H) <150 mg/dL 04/12/2018 1:39 PM CDT [facility] HDL CHOLESTEROL 37(L) >40 mg/dL 8 1:39 PM CDT [facility] NON-HDL CHOLESTEROL 102 <145 mg/dl 04/12/2018 1:39 PM CDT [facility] CHOL/HDL RATIO 3.76 <4.50 04/12/2018 1:39 PM CDT [facility] LDL CHOLESTEROL 46 <=130 mg/dL 04/12/2018 1:39 PM T [facility] PROVIDER ORDERED STATUS RANDOM 04/12/2018 1:39 PM T [facility] Blood BLOOD SPECIMEN / Unknown Venipuncture / Unknown 04/12/2018 11:31 AM CDT 04/12/2018 11:36 AM CDT Antonio Rodríguez MD CHEMISTRY [facility] SENDOUT INTERNAL ZIP [phone] [place] [address] * XR MAMMO BILAT SCREEN FFDM (10/11/2011 4:12 PM AUGER SUPERVISOR) Anatomical Region Laterality Modality BREASTS, Breast Left, Breast Right Bilateral Mammography Impressions 10/12/2011 8:25 AM AUGER SUPERVISOR ??There is no radiographic evidence for malignancy. ??Recommend annual mammograms. A lay language report of this examination will be provided to the patient. MAMMOGRAM ASSESSMENT: ??ACR 1 Negative Narrative 10/12/2011 8:25 AM AUGER SUPERVISOR XR MAMMO BILAT SCREEN FFDM [G0202.0] [...] 1:04 PM 04/17/2018 2:50 PM Care Teams Automatic Pad Making Machine Operator Relationship Specialty Start Date End Date Victor M Kumar MD [address] [place] [address] PCP - General Emergency Medicine 11/01/16 Aldo Arizmendi [facility] [address] [place] [address] Occupational Therapy 12/06/23
--- NOTE | 2024-04-18 11:00 | CRLHL7_ITS ---
For Patients: As a result of the Century Cures Act, medical imaging exams and procedure reports are released immediately into your electronic medical record. You may view this report before your referring provider. If you have questions, please contact your health care provider. INDICATION: Traumatic subdural hemorrhage with loc COMPARISON: 03/28/2024, 03/30/2024 TECHNIQUE: A CT volumetric acquisition was performed of the brain without IV contrast. Please note that all CT scans at this facility use dose modulation, iterative reconstruction, and/or weight-based dosing when appropriate to reduce radiation dose to as low as reasonably achievable. FINDINGS: Decreased conspicuity of the anterior posterior fossa subdural hematoma. No hydrocephalus. Chronic ischemic changes to the left parietal lobe. Generalized atrophy. Chronic white matter changes. Sinuses clear. IMPRESSION: Resolution of the previously noted subdural hematoma. Please note that all CT scans at this facility use dose modulation, iterative reconstruction, and/or weight-based dosing when appropriate to reduce radiation dose to as low as reasonably achievable. Dictated by Gareth Ellison MD @ 04/18/2024 12:49:15 PM (Electronically Signed)
--- NOTE | 2024-04-18 11:30 | CRLHL7_ITS ---
For Patients: As a result of the Century Cures Act, medical imaging exams and procedure reports are released immediately into your electronic medical record. You may view this report before your referring provider. If you have questions, please contact your health care provider. INDICATION: Subdural hematoma TECHNIQUE: CT cervical spine without contrast. COMPARISON: 03/30/2024 FINDINGS: Resolution of the previously noted subdural hemorrhage. No acute hemorrhage. No suspicious thyroid nodule. Lung apices are clear. Atherosclerotic changes. No adenopathy. Salivary glands normal. Degenerative changes on the right at C5-6. No vertebral body compression fracture. Disc space narrowing and spurring C5-6. Mild facet degeneration midcervical spine. IMPRESSION: Resolution of the previously noted subdural hemorrhage. Please note that all CT scans at this facility use dose modulation, iterative reconstruction, and/or weight-based dosing when appropriate to reduce radiation dose to as low as reasonably achievable. Dictated by Gareth Ellison MD @ 04/18/2024 12:52:30 PM (Electronically Signed)
== END 2024-04-18 10:39 | disposition home or self-care (01) ==
PROVIDERS: PCP Internal Medicine; Visit Provider Nurse Practitioner
DX: S06.5XAA Traumatic subdural hemorrhage with loss of consciousness status unknown, initial encounter (principal)
CPT/HCPCS: 70450; 72125

== ENCOUNTER 2024-05-21 14:33 | Outpatient (RCR) | payer OTHER, SELFPAY ==
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
== END 2024-09-18 23:59 | disposition home or self-care (01) ==
PROVIDERS: PCP Internal Medicine; Visit Provider Orthopaedic Surgery Sports Medicine
DX: S62.357A Nondisplaced fracture of shaft of fifth metacarpal bone, left hand, initial encounter for closed fracture (principal); R53.1 Weakness; Z74.09 Other reduced mobility; Z51.89 Encounter for other specified aftercare
CPT/HCPCS: 97165; L3808

== ENCOUNTER 2024-07-15 08:07 | Outpatient (CLI) | payer OTHER, SELFPAY ==
--- OUTSIDE RECORDS SUMMARY | 2024-07-15 08:26 | XMS_ITS | Clinical Summary ---
Author Organization [facility] Address [place], [place] [address] Care Team Providers Care Supervisor Airplane Flight Attendant Name Role Phone Victor M Kumar MD Primary Care Provider Aldo Arizmendi Unavailable [phone] Allergies Active Allergy Reactions Criticality Noted Date [...] sprayIndications:all ergic conjunctivitis,aller gic rhinitis Inhale 1 [place] into both nostrils once daily. 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 Product desired: BASAGLAR TEMPO 12/04/2023 Active lidocaine 4 % topical patchIndications:Nec k sprain, initial encounter Apply to intact skin to cover most painful area for max 12hr per 24hr period. 12/05/2023 Active gabapentin (NEURONTIN) 300 mg capsule Take 900 mg by mouth three times daily. Active HYDROcodone-acetamin ophen (5-325 mg/tablet) Take 1 Tablet by mouth every 6 hours if needed for Pain. Max acetaminophen dose: 4000 mg in 24 hrs. Usually takes ~3 tab/day Active lisinopriL (PRINIVIL; ZESTRIL) 20 mg tabletIndications:Hy pertension Take 1 Tablet (20 mg) by mouth once daily. 30 Tablet 04/06/2024 Active warfarin (COUMADIN) 5 mg tabletIndications:Reshma pus anticoagulant positive,Anticoagula tion monitoring, special range HOLD until you get head CT and primary care tells you to continue 04/06/2024 Active amLODIPine (NORVASC) 10 mg tabletIndications:Hy pertension Take 1 Tablet (10 mg) by mouth once daily. 30 Tablet 04/07/2024 Active Active Problems Problem Noted Date Diagnosed Date Subdural hematoma 03/30/2024 DM2 (diabetes mellitus, type 2) 03/30/2024 CAD (coronary artery disease) 03/30/2024 ACP (advance care planning) 03/30/2024 Subdural hematoma 11/09/2023 Diastolic dysfunction 11/09/2023 Overview (11/09/2023): Overview: Hosp for CHF April 05; normal syst function History of section 11/09/2023 History of coronary artery stent placement 11/09 History of third molar tooth extraction 11/09/19 History of myocardial infarction 11/09/2023 Presence of stent in coronary artery 11/09/2023 Anticoagulation goal of INR 2 to 3 11/09/2023 Primary hypercoagulable state 11/09/2023 Overview (11/09/2023): Overview: Lupus anticoagulant; Protein C deficiency. 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 Navarro. Shae Mcclain RN 10/05/2011 2:46 PM Chest pain 09/30/2011 NSTEMI (non-ST elevated myocardial infarction) 1 12/01/2010 Protein C deficiency 09/30/2011 Low back pain 09/30/2011 Overview (09/30/2011): Uses Vicodin Diabetic renal disease 04/26/2011 Diabetic Preventive Measures : foot exam eye exam urine protein 04/26/2011 Overview (04/26/2011): Diabetic Preventive Measures: foot exam eye exam urine protein Breast cancer screening, high risk patient OVERD UE 12/23/10 12/24/[address] dorsey 11/09/2010 Sciatica Controlled with adrianna cotics. See repeat presciptions on vicodin. 05/17/2010 Overview (05/17/2010): Controlled with narcotics. See repeat presciptions Issue of repeat prescriptions sciatica 0 Overview (04/12/2010): Regular vicodin use for sciatica left leg. Patient has severe structual disease with good control on narcotics with no significant ill effects abuse issues. Other lesser modalities tried and are ineffective or contraindicated by comorbid conditions. Ramana Navarro Stroke History of TIA or mul tiple small biswas at [facility] 200810/27/2009 Overview (05/17/2010): History of TIA or multiple small biswas at [facility] 2008 Renal Insufficiency 11/09/2010 cr = 1.43* 009 Overview (12/24/2010): CREATININE (mg/dL) Date Value 10/12/09 12:07 PM 1.54* CREATININE (mg/dL) Date Value 11/09/2010 1.43* Special Screening for Malign ant Neoplasms, Colon 2005 colonoscopy, neg, repeat 10 years-reported by pt 10/12/2009 Overview (10/12/2009): 2005 colonoscopy, neg, repeat 10 years-reported by pt.......Hiral Ahumada CMA 10/12/2009 10:47 AM Cerebrovascular accident (CVA) 08/12/2009 Overview (11/09/2023): Neurology: Dr. Geller (told cannot return to work). CVA 03/07/2009 (2 days after surgery): off Coumadin (stroke thought secondary to blood clot from lung; was found hypoxic in the hospital?) Residual memory loss, sometimes slurs speech, some right-sided weakness. Peripheral Arterial Disease Had claudication, s/p bypass 02/2008, had repeat surgery, then toe amputation for gangrene, then Right BKA. 08/12/2009 Overview (12/24/2010): Had claudication, s/p bypass 02/2008, had repeat surgery, then toe amputation for gangrene, then Right BKA. Hospital ICU for sepsis, then Rehab, wound vac, skin graft, fell, revision of skin graft 02/2009. Right leg prosthesis and cane: Neurontin for phantom limb pain. Diabetes Mellitus II Novolog and Lantus (right B KA) 08/12/2009 Overview (12/16/2013): Last A1c: 8.512 a system change updated this record. This will not affect patient care or billing. This comment can be deleted. Hyperlipidemia on lovastatin ldl 11/09/2010 53 Overview (10/03/2011): LDL 42 09/05/11 HIGH BLOOD PRESSURE on lisinopril hctz, carvedil ol 08/12/2009 Overview (08/12/2009): Carvedilol, Lisinopril/HCTZ. DEPRESSION celexa, effexor c ymbalta all failed. start sertraline 09/05/11 08/12/2009 Overview (09/05/2011): meds she has had before: celexa, lexapro, [...] managed with coumadin and INRs, no 08/12/2009 Overview (12/24/2010): DVT, been told she has LAC and protein c deficiency. May have had a PE. On lifelong anticoagualtion, has been managed with coumadin and INRs, not factor Xs. Sprain of neck 01/19/2009 Allergic rhinitis 05/02/2007 Overview (11/09/2023): Overview: Problem list name updated by automated process. Provider to review Nonspecific immunological findings 11/13/2005 Overview (11/09/2023): Overview: LW Onset: ; Lupus Anticoagulant Syndrome Coronary atherosclerosis 08/25/2005 Overview (11/09/2023): 2003. s/p 2 stents. Overview: ID followed by stent placement Problem list name updated by automated process. Provider to review Anxiety state 10/17/2004 Overview (11/09/2023): Overview: Problem list name updated by automated process. Provider to review Overview: LW Modifier: Flight anxiety LW Onset: [id number] ; Anxiety NOS Tobacco use disorder 10/17/2004 Overview (11/09/2023): Overview: LW Modifier: quit 08/2004 LW Onset: [id number] ; Tobacco Abuse Resolved Problems Problem Noted Date Diagnosed Date Resolved Date Anticoagulation monitoring, special range 20-40% 12/05/2023 01/01/2024 Diabetic eye exam 04/26/2011 04/26/2011 Major depression, recurrent 08/24/2010 12/24/2010 Overview (08/24/2010): meds she has had before: celexa, lexapro, prozac, wellbutrin -- tolerated all these, not sure why any were changed. zoloft she did not like not sure why. effexor caused wt gain. cymbalta caused night sweats. 08/24/2010 Ramana Navarro MD Encounters Date Type Department Care Team Description 06/09/2024 Lab Requisition [facility] [phone] Victor M Kumar MD 05/13/2024 Lab Requisition [facility] [phone] Victor M Kumar MD 05/02/2024 Orders Only [facility] [address] [place] [address] Evelyn Dickey 2 scans: (2-Ord) CT HEAD BRAIN /[facility]/ALEX MATHIS MD/04/18/2024 04/16/2024 Lab Requisition [facility] [phone] Victor M Kumar MD from Last 3 Months Immunizations Name Administration Dates Next Due COVID-19 vaccine (Simply Pasta & More NTech 30mcg/0.3mL) MD MARILUV 01/15/2021,12/24/2020 Influenza RIV4 (Age 18+ Year s) [...] through age 75 11/17/201511/17 (Completed outside of [facility]), 10/29/2005 (Completed outside of [facility]) BMI (ht and wt on same day) for age 18+ 07/17/2019 07/17/2018, 08/15/2017 DEXA/DXA scan for age 65+ 2020 Medicare Wellness for age 65+ 2020 Pneumococcal series for age 65+ (4 of 4 - PPSV23 or PCV20) 12/15/2021 12/15/2020, 10/03/2013, 09/06/2000 Lipids for age 45-75 04/12/2023 04/12/2018, 09/05/2011, 04/26/2011, Additional history exists COVID-19 vaccine series ( season) 2024 08/21/2023, 07/25/2022, 02/06/2022, Additional history exists Influenza for age 65+ 06/29/2024 08/12/2020 , 08/09/2019, 07/13/2018, Additional history exists Tetanus booster 08/12/2030 08/12/2020, 02/26, 02/27/2008, Additional history exists Zoster (shingles) series for age 50+ Completed 10/13/2019, 03/28/2019 Tdap Completed 08/12/2020, 06/07/2007 Procedures Procedure Name Priority Date/Time Associated Diagnosis Comments EXTRA TUBE BLUE Routine 06/09/2024 9:50 AM CDT FACTOR 10 CHROMOGENIC Routine 06/09/2024 9:50 AM CDT EXTRA TUBE BLUE Routine 05/13/2024 9:06 AM CDT EXTRA TUBE BLUE Routine 05/13/2024 9:06 AM CDT FACTOR 10 CHROMOGENIC Routine 05/13/2024 9:[address] HEAD BRAIN WO Routine 04/18/2024 Subdural hematoma (HC) CT SPINE CERVICAL WO Routine 04/18/2024 Subdural hematoma (HC) FACTOR 10 CHROMOGENIC Routine 04/16/2024 1:48 PM CDT LIPID PANEL BALDOMERO 04/12/2018 11:31 AM CDT XR MAMMO BILAT SCREEN FFDM (IA) Routine 10/11/2011 4:12 PM DIETARY WORKER Screening breast examination from Last 3 Months or Most Recently Relevant to Health Maintenance Results * EXTRA TUBE BLUE (06/09/2024 9:50 AM CDT) Only the most recent of3 resultswithin the time period is included. Blood BLOOD SPECIMEN / Unknown Client Collect / Unknown 06/09/2024 9:50 AM CDT 06/09/2024 3:38 PM CDT Victor M Kumar MD LABORATORY Performing Organization Address City/[facility] Co de Phone Number [facility] [address] [place] [address], * (ABNORMAL) FACTOR 10 CHROMOGENIC (06/09/2024 9:50 AM CDT) Only the most recent of3 resultswithin the time period is included. FACTOR 10 CHROMOGENIC 42(L) 65 - 130 % 06/09/2024 5:25 PM CDT [facility] Blood BLOOD SPECIMEN / Unknown Client Collect / Unknown 06/09/2024 9:50 AM CDT 06/09/2024 3:38 PM CDT Narrative [facility] - 06/09/2024 5:25 PM CDT Therapeutic Range 20-40% Victor M Kumar MD SEND OUTS Performing Organization Address [facility]/ZIP Co de Phone Number [facility] [address] [place] [address], * CT SPINE CERVICAL WO (04/18/2024) Anatomical Region Laterality Modality CERVICAL SPINE, NECK, Spine Comp uted Tomography 04/18/2024 Nichol Rojas TOURIST INFORMATION ASSISTANT CT * CT HEAD BRAIN WO (04/18/2024) Anatomical Region Laterality Modality HEAD, BRAIN Computed Tomogra phy 04/18/2024 Nichol Rojas TOURIST INFORMATION ASSISTANT CT * (ABNORMAL) Lipid Panel - Fasting (04/12/2018 11:31 AM CDT) CHOLESTEROL,TOTAL 139 100 - 199 mg/dL 04/12/2018 1:39 PM CDT [facility] TRIGLYCERIDES 282(H) <150 mg/dL 04/12/2018 1:39 PM CDT [facility] HDL CHOLESTEROL 37(L) >40 mg/dL 8 1:39 PM CDT [facility] NON-HDL CHOLESTEROL 102 <145 mg/dl 04/12/2018 1:39 PM CDT [facility] CHOL/HDL RATIO 3.76 <4.50 04/12/2018 1:39 PM CDT [facility] LDL CHOLESTEROL 46 <=130 mg/dL 04/12/2018 1:39 PM CDT [facility] PROVIDER ORDERED STATUS RANDOM 04/12/2018 1:39 PM CDT [facility] Blood BLOOD SPECIMEN / Unknown Venipuncture / Unknown 04/12/2018 11:31 AM CDT 04/12/2018 11:36 AM CDT Antonio Rodríguez MD CHEMISTRY [facility] SENDOUT INTERNAL [facility] [id number] [address] [place] [address] * XR MAMMO BILAT SCREEN FFDM (10/11/2011 4:12 PM DIETARY WORKER) Anatomical Region Laterality Modality BREASTS, Breast Left, Breast Right Bilateral Mammography Impressions 10/12/2011 8:25 AM DIETARY WORKER ??There is no radiographic evidence for malignancy. ??Recommend annual mammograms. A lay language report of this examination will be provided to the patient. MAMMOGRAM ASSESSMENT: ??ACR 1 Negative Narrative 10/12/2011 8:25 AM DIETARY WORKER XR MAMMO BILAT SCREEN FFDM [G0202.0] CLINICAL [...] 1:04 PM 04/17/2018 2:50 PM Care Teams Supervisor Airplane Flight Attendant Relationship Specialty Start Date End Date Victor M Kumar MD [address] [place], [place] [phone] PCP - General Emergency Medicine 11/01/16 Aldo Arizmendi COTA [address] [place], [place] [phone] Occupational Therapy 12/06/23
== END 2024-07-15 08:08 | disposition home or self-care (01) ==
LOC: NFLDREF 08:09
PROVIDERS: PCP Internal Medicine; Visit Provider Internal Medicine
DX: I26.99 Other pulmonary embolism without acute cor pulmonale (principal); D68.62 Lupus anticoagulant syndrome; Z79.02 Long term (current) use of antithrombotics/antiplatelets; Z86.718 Personal history of other venous thrombosis and embolism; E11.9 Type 2 diabetes mellitus without complications; I10 Essential (primary) hypertension; M54.9 Dorsalgia, unspecified; E61.8 Deficiency of other specified nutrient elements
CPT/HCPCS: 85260

== ENCOUNTER 2024-09-01 09:34 | Outpatient (CLI) | payer OTHER, SELFPAY ==
--- OUTSIDE RECORDS SUMMARY | 2024-09-05 04:26 | XMS_ITS | Clinical Summary ---
Author Organization [facility] Address [place], [place] [address] Care Team Providers Care Wheel Borer Name Role Phone Victor M Kumar MD Primary Care Provider Aldo Arizmendi Unavailable [phone] Allergies Active Allergy Reactions Criticality Noted Date [...] sprayIndications:all ergic conjunctivitis,aller gic rhinitis Inhale 1 [place] into both nostrils once daily. 1 Bottle [...] TIA or mul tiple small biswas at [facility] 200810/27/2009 Overview (05/17/2010): History of TIA or multiple small biswas at [facility] 2008 Renal Insufficiency 11/09/2010 cr = 1.43* [...] Overview (11/09/2023): 2003. s/p 2 stents. Overview: GA followed by stent placement Problem list name updated by automated process. Provider to review Anxiety state 10/17/2004 Overview (11/09/2023): Overview: Problem list name updated by automated process. Provider to review Overview: LW Modifier: Flight anxiety LW Onset: [id number] ; Anxiety NOS Tobacco use disorder 10/17/2004 Overview (11/09/2023): Overview: LW Modifier: quit 08/2004 LW Onset: [id number] ; Tobacco Abuse Resolved Problems Problem Noted [...] Department Care Team Description 06/09/2024 Lab Requisition [facility] [phone] Victor M Kumar MD from Last 3 Months Immunizations Name Administration Dates Next Due COVID-19 vaccine (Forgotten [place]-Bio NTech 30mcg/0.3mL) PF, MDV 01/15/2021,12/24/2020 Influenza RIV4 (Age 18+ Year s) [...] by choice. Social Connections Answer Date Recorded Do you often feel lonely or isolated from those around you? 0 03/31/2024 Financial Resource Strain Answer Date R ecorded Difficulty of Paying Living Expenses 3 03/31/2024 Difficulty of Paying Living Expenses Not on file 03/31/2024 Food Insecurity Answer Date Recorded Do you worry your food will run out before you are able to buy more? 1 03/31/2024 Transportation Needs Answer Date Record ed Does lack of transportation keep you from medica l appointments? 1 03/31/2024 Does lack of transportation keep you from work, meetings or getting things that you need? 1 03/31/2024 Housing Stability Answer Date Recorded What is your housing situation today? 1 03/31/2024 Sex and Gender Information Value [...] through age 75 11/17/201511/17 (Completed outside of [facility]), 10/29/2005 (Completed outside of [facility]) BMI (ht and wt on same day) [...] 10 CHROMOGENIC Routine 06/09/2024 9:50 AM CDT LIPID PANEL BALDOMERO 04/12/2018 11:31 AM CDT XR MAMMO BILAT SCREEN FFDM (IA) Routine 10/11/2011 4:12 PM TELECOMMUNICATIONS EQUIPMENT INSTALLER Screening breast examination from Last 3 Months or Most Recently Relevant to Health Maintenance Results * EXTRA TUBE BLUE (06/09/2024 9:50 AM CDT) Blood BLOOD SPECIMEN / Unknown Client Collect / Unknown 06/09/2024 9:50 AM CDT 06/09/2024 3:38 PM CDT Victor M Kumar MD LABORATORY [facility]ORAT[facility] [address] [place] [address], * (ABNORMAL) FACTOR 10 CHROMOGENIC (06/09/2024 9:50 AM CDT) FACTOR 10 CHROMOGENIC 42(L) 65 - 130 % 06/09/2024 5:25 PM CDT [facility] Blood BLOOD SPECIMEN / Unknown Client Collect / Unknown 06/09/2024 9:50 AM CDT 06/09/2024 3:38 PM CDT Narrative [facility] - 06/09/2024 5:25 PM CDT Therapeutic Range 20-40% Victor M Kumar MD SEND OUTS [facility] [address] [place] [address], * (ABNORMAL) Lipid Panel - Fasting (04/12/2018 11:31 AM CDT) CHOLESTEROL,TOTAL 139 100 - 199 mg/dL 04/12/2018 1:39 PM CDT [facility] TRIGLYCERIDES 282(H) <150 mg/dL 04/12/2018 1:39 PM CDT [facility] HDL CHOLESTEROL 37(L) >40 mg/dL 8 1:39 PM CDT [facility] NON-HDL CHOLESTEROL 102 <145 mg/dl 04/12/2018 1:39 PM CDT [facility] CHOL/HDL RATIO 3.76 <4.50 04/12/2018 1:39 PM CDT [facility] LDL CHOLESTEROL 46 <=130 mg/dL 04/12/2018 1:39 PM CDT [facility] PROVIDER ORDERED STATUS RANDOM 04/12/2018 1:39 PM CDT [facility] Blood BLOOD SPECIMEN / Unknown Venipuncture / Unknown 04/12/2018 11:31 AM CDT 04/12/2018 11:36 AM CDT Antonio Rodríguez MD CHEMISTRY [facility] SENDOUT INTERNAL ZIP [address] [place] [address] * XR MAMMO BILAT SCREEN FFDM (10/11/2011 4:12 PM TELECOMMUNICATIONS EQUIPMENT INSTALLER) Anatomical Region Laterality Modality BREASTS, Breast Left, Breast Right Bilateral Mammography Impressions 10/12/2011 8:25 AM TELECOMMUNICATIONS EQUIPMENT INSTALLER ??There is no radiographic evidence for malignancy. ??Recommend annual mammograms. A lay language report of this examination will be provided to the patient. MAMMOGRAM ASSESSMENT: ??ACR 1 Negative Narrative 10/12/2011 8:25 AM TELECOMMUNICATIONS EQUIPMENT INSTALLER XR MAMMO BILAT SCREEN FFDM [G0202.0] [...] 1:04 PM 04/17/2018 2:50 PM Care Teams Wheel Borer Relationship Specialty Start Date End Date Victor M Kumar MD [address] [place] [address] PCP - General Emergency Medicine 11/01/16 Aldo Arizmendi COTA [address] [place], [place] [phone] Occupational Therapy 12/06/23
== END 2024-09-01 09:35 | disposition home or self-care (01) ==
LOC: NFLDREF 09-05 04:23
PROVIDERS: PCP Internal Medicine; Referring Provider Internal Medicine; Visit Provider Internal Medicine
DX: Z79.01 Long term (current) use of anticoagulants (principal)
CPT/HCPCS: 85260

== ENCOUNTER 2024-09-17 12:44 | Outpatient (CLI) | payer OTHER, SELFPAY ==
--- OUTSIDE RECORDS SUMMARY | 2024-09-17 12:47 | XMS_ITS | Clinical Summary ---
Author Organization [email or web address] Address [place], [place] [address] Care Team Providers Care Light Truck Driver Name Role Phone Victor M Kumar MD Primary Care Provider [phone] Aldo Arizmendi Unavailable [phone] Allergies Active Allergy Reactions Criticality Noted Date [...] sprayIndications:all ergic conjunctivitis,aller gic rhinitis Inhale 1 [place] into both nostrils once daily. 1 Bottle [...] TIA or mul tiple small biswas at [facility] 200810/27/2009 Overview (05/17/2010): History of TIA or multiple small biswas at [facility] 2008 Renal Insufficiency 11/09/2010 cr = [...] Overview (11/09/2023): 2003. s/p 2 stents. Overview: CA followed by stent placement Problem list name updated by automated process. Provider to review Anxiety state 10/17/2004 Overview (11/09/2023): Overview: Problem list name updated by automated process. Provider to review Overview: LW Modifier: Flight anxiety LW Onset: [id number] ; Anxiety NOS Tobacco use disorder 10/17/2004 Overview (11/09/2023): Overview: LW Modifier: quit 08/2004 LW Onset: [id number] ; Tobacco Abuse Resolved Problems Problem Noted [...] caused night sweats. 08/24/2010 Ramana Navarro MD Immunizations Name Administration Dates Next Due COVID-19 vaccine (SaqinaBio NTech 30mcg/0.3mL) PF, MDV 01/15/2021,12/24/2020 Influenza RIV4 [...] 79 04/06/2024 7:40 AM CDT Temperature 36.3 C (97.4 F) 04/06/2024 7:38 AM CDT Respiratory Rate 16 04/06/2024 7:38 AM CDT [...] through age 75 11/17/201511/17 (Completed outside of [facility]), 10/29/2005 (Completed outside of [facility]) BMI (ht and wt on same day) [...] Procedure Name Priority Date/Time Associated Diagnosis Comments LIPID PANEL BALDOMERO 04/12/2018 11:31 AM CDT XR MAMMO BILAT SCREEN FFDM (IA) Routine 10/11/2011 4:12 PM MRI MANAGER Screening breast examination from Last 3 Months or Most Recently Relevant to Health Maintenance Results * (ABNORMAL) Lipid Panel - Fasting (04/12/2018 11:31 AM CDT) CHOLESTEROL,TOTAL 139 100 - 199 mg/dL 04/12/2018 1:39 PM T [facility] TRIGLYCERIDES 282(H) <150 mg/dL 04/12/2018 1:39 PM T [facility] HDL CHOLESTEROL 37(L) >40 mg/dL 8 1:39 PM T [facility] NON-HDL CHOLESTEROL 102 <145 mg/dl 04/12/2018 1:39 PM [facility] CHOL/HDL RATIO 3.76 <4.50 04/12/2018 1:39 PM [facility] LDL CHOLESTEROL 46 <=130 mg/dL 04/12/2018 1:39 PM [facility] PROVIDER ORDERED STATUS RANDOM 04/12/2018 1:39 PM [facility] Blood BLOOD SPECIMEN / Unknown Venipuncture / Unknown 04/12/2018 11:31 AM CDT 04/12/2018 11:36 AM CDT Antonio Rodríguez MD CHEMISTRY [facility] SENDOUT INTERNAL ZIP [address] [address] [place] [address] * XR MAMMO BILAT SCREEN FFDM (10/11/2011 4:12 PM MRI MANAGER) Anatomical Region Laterality Modality BREASTS, Breast Left, Breast Right Bilateral Mammography Impressions 10/12/2011 8:25 AM MRI MANAGER There is no radiographic evidence for malignancy. Recommend annual mammograms. A lay language report of this examination will be provided to the patient. MAMMOGRAM ASSESSMENT: ACR 1 Negative Narrative 10/12/2011 8:25 AM MRI MANAGER XR MAMMO BILAT SCREEN FFDM [G0202.0] CLINICAL HISTORY: This is an asymptomatic 55 y.o. patient. INDICATION FOR EXAM: Mammogram Screening. TECHNIQUE: CC & MLO views were obtained. This digital study was evaluated with the assistance of Computer-Aided Detection. COMPARISON FILM: Priors not available at the time of this report. FINDINGS: Mammographically, the breast tissue is heterogeneously dense, which could obscure detection of small masses (approximately 51% - 75% glandular). There are no dominant masses, suspicious micro calcifications [...] 1:04 PM 04/17/2018 2:50 PM Care Teams Light Truck Driver Relationship Specialty Start Date End Date Victor M Kumar MD [address] [place] [address] PCP - General Emergency Medicine 11/01/16 Aldo Arizmendi COTA [address] [place], [place] [phone] Occupational Therapy 12/06/23
--- NOTE | 2024-09-17 13:00 | CRLHL7_ITS ---
For Patients: As a result of the Century Cures Act, medical imaging exams and procedure reports are released immediately into your electronic medical record. You may view this report before your referring provider. If you have questions, please contact your health care provider. DXA BONE MINERAL DENSITY STUDY Current height (in): 70.0. Weight (lb): 170.0. Menopause age: 50. Ethnicity: White. 1. Have you had a previous hip or vertebral fracture? Yes. 2. Have you had any fractures during your adult life which did not result from significant trauma (e.g., auto accident)? Yes. 3. Did either of your parents have a hip fracture? No. 4. Do you smoke? No. 5. Have you ever taken Glucocorticoids? No. 6. Do you have rheumatoid arthritis? No. 7. Do you have secondary osteoporosis? No. 8. Do you drink 3 or more alcoholic drinks per day? No. 9. Are you being treated for osteoporosis? No. 10. Have you ever taken any of the following medications: Actonel, Evista, Fosamax, Miacalcin, Reclast, Boniva, Forteo, HRT (i.e. estrogen/hormone therapy), Protelos, Prolia, Vitamin D, Calcium, other ??? please specify. ANSWER: No. 11. Do you have any of the following medical conditions: Anorexia or bulimia, asthma or emphysema, end stage renal disease, hyperparathyroidism, any seizure disorders, cancer, inflammatory bowel diseases, hysterectomy, other ??? please specify. ANSWER: No. 12. What was your maximum height (inches)? 70. 13. Do you perform weight bearing exercise regularly? No. 14. Do you regularly consume dairy products? Yes. 15. Do you drink caffeinated beverages? Yes. If female: 16. At what age did your period start? 13. 17. Are you premenopausal? No. 18. How many full term pregnancies have you had? 3. 19. Have you ever missed your period for more than 6 months in a row (not including or menopause)? No. TECHNIQUE: Bone mineral density study was performed using the [employer]. FINDINGS: The results of the study expressed as bone mineral density (BMD) are as follows: Lumbar spine L1 to L4: BMD: 1.026 g/cm2. T-score: -0.2. Z-score: 1.8. Neck Left: BMD: 0.744 g/cm2. T-score: -0.9 . Z-score: 0.8. Right: BMD: 0.649 g/cm2. T-score:-1.8 . Z-score: -0.1. Total Left: BMD:0.868 g/cm2. T-score: -0.6 . Z-score: 0.8. Right: BMD: 0.733 g/cm2. T-score: -1.7 . Z-score: -0.3. IMPRESSION: Osteopenia. *Comparison exams done prior to 03/2020 were performed on different unit, [email or web address]. Gareth Ellison M.D. Diagnostic Radiologist [email or web address] RICHARD/salma JR/Dictated by: Gareth Ellison MD @ 09/18/2024 9:16:00 AM (Electronically Signed)
== END 2024-09-17 12:45 | disposition home or self-care (01) ==
LOC: RAD 12:45
PROVIDERS: PCP Internal Medicine; Visit Provider Internal Medicine
DX: S62.357A Nondisplaced fracture of shaft of fifth metacarpal bone, left hand, initial encounter for closed fracture (principal); M85.89 Other specified disorders of bone density and structure, multiple sites
CPT/HCPCS: 77080

== ENCOUNTER 2024-09-23 10:38 | Outpatient (CLI) | payer OTHER, SELFPAY ==
--- OUTSIDE RECORDS SUMMARY | 2024-09-23 10:41 | XMS_ITS | Clinical Summary ---
Author Organization [facility] Address [place], [place] [address] Care Team Providers Care Investment Banking Manager Name Role Phone Victor M Kumar MD Primary Care Provider Aldo Arizmendi Unavailable [phone] Allergies Active Allergy Reactions Criticality Noted Date [...] sprayIndications:all ergic conjunctivitis,aller gic rhinitis Inhale 1 Panther into both nostrils once daily. 1 Bottle [...] are ineffective or contraindicated by comorbid conditions. Raamna Navarro Stroke History of TIA or mul tiple small biswas at [facility] 200810/27/2009 Overview (05/17/2010): History of TIA or multiple small biswas at [facility] 2008 Renal Insufficiency 11/09/2010 cr [...] Overview (11/09/2023): 2003. s/p 2 stents. Overview: PR followed by stent placement Problem list name updated by automated process. Provider to review Anxiety state 10/17/2004 Overview (11/09/2023): Overview: Problem list name updated by automated process. Provider to review Overview: LW Modifier: Flight anxiety LW Onset: [id number] ; Anxiety NOS Tobacco use disorder 10/17/2004 Overview (11/09/2023): Overview: LW Modifier: quit 08/2004 LW Onset: [id number] ; Tobacco Abuse Resolved Problems Problem Noted [...] Name Administration Dates Next Due COVID-19 vaccine (Rank By [employer] 30mcg/0.3mL) PF, MDV 01/15/2021,12/24/2020 Influenza RIV4 [...] through age 75 11/17/201511/17 (Completed outside of [employer]), 10/29/2005 (Completed outside of [facility]) BMI (ht and wt on same day) [...] SCREEN FFDM (IA) Routine 10/11/2011 4:12 PM GEAR REPAIR SUPERVISOR Screening breast examination from Last 3 Months or Most Recently Relevant to Health Maintenance Results * (ABNORMAL) Lipid Panel - Fasting (04/12/2018 11:31 AM CDT) CHOLESTEROL,TOTAL 139 100 - 199 mg/dL 04/12/2018 1:39 PM T [facility] TRIGLYCERIDES 282(H) <150 mg/dL 04/12/2018 1:39 PM T [facility] HDL CHOLESTEROL 37(L) >40 mg/dL 8 1:39 PM T [facility] NON-HDL CHOLESTEROL 102 <145 mg/dl 04/12/2018 1:39 PM [facility] CHOL/HDL RATIO 3.76 <4.50 04/12/2018 1:39 PM [facility] LDL CHOLESTEROL 46 <=130 mg/dL 04/12/2018 1:39 PM [facility] PROVIDER ORDERED STATUS RANDOM 04/12/2018 1:39 PM [facility] Blood BLOOD SPECIMEN / Unknown Venipuncture / Unknown 04/12/2018 11:31 AM CDT 04/12/2018 11:36 AM CDT Antonio Rodríguez MD CHEMISTRY [facility] SENDOUT [place]IP [id number] [address] [place] [address] * XR MAMMO BILAT SCREEN FFDM (10/11/2011 4:12 PM GEAR REPAIR SUPERVISOR) Anatomical Region Laterality Modality BREASTS, Breast Left, Breast Right Bilateral Mammography Impressions 10/12/2011 8:25 AM GEAR REPAIR SUPERVISOR There is no radiographic evidence for malignancy. Recommend annual mammograms. A lay language report of this examination will be provided to the patient. MAMMOGRAM ASSESSMENT: ACR 1 Negative Narrative 10/12/2011 8:25 AM GEAR REPAIR SUPERVISOR XR MAMMO BILAT SCREEN FFDM [G0202.0] [...] 1:04 PM 04/17/2018 2:50 PM Care Teams Investment Banking Manager Relationship Specialty Start Date End Date Victor M Kumar MD [address] [place] [id number] PCP - General Emergency Medicine 11/01/16 Aldo Arizmendi [facility] [address] [place], [place] [id number] Occupational Therapy 12/06/23
== END 2024-09-23 10:39 | disposition home or self-care (01) ==
LOC: NFLDREF 10:40
PROVIDERS: PCP Internal Medicine; Visit Provider Internal Medicine
DX: D68.62 Lupus anticoagulant syndrome (principal); E11.9 Type 2 diabetes mellitus without complications
CPT/HCPCS: 85260

== ENCOUNTER 2024-11-04 09:00 | Outpatient (CLI) | payer OTHER, SELFPAY | END 2024-11-04 09:01 | disposition home or self-care (01) | LOC: NFLDREF 11-06 08:06 | PROVIDERS: PCP Internal Medicine; Referring Provider Internal Medicine; Visit Provider Internal Medicine | DX: Z79.01 Long term (current) use of anticoagulants (principal); D68.62 Lupus anticoagulant syndrome | CPT/HCPCS: 85260 ==

== ENCOUNTER 2024-12-03 14:10 | Outpatient (CLI) | payer OTHER, SELFPAY | END 2024-12-03 14:11 | disposition home or self-care (01) | LOC: NFLDREF 14:11 | PROVIDERS: PCP Internal Medicine; Visit Provider Internal Medicine | DX: D68.62 Lupus anticoagulant syndrome (principal) | CPT/HCPCS: 85260 ==

== ENCOUNTER 2025-01-06 08:49 | Outpatient (CLI) | payer OTHER, SELFPAY | END 2025-01-06 08:50 | disposition home or self-care (01) | LOC: NFLDREF 01-08 07:33 | PROVIDERS: PCP Internal Medicine; Referring Provider Internal Medicine; Visit Provider Internal Medicine | DX: D68.62 Lupus anticoagulant syndrome (principal) | CPT/HCPCS: 85260 ==

== ENCOUNTER 2025-02-25 16:18 | Outpatient (CLI) | payer OTHER, SELFPAY | END 2025-02-25 16:19 | disposition home or self-care (01) | LOC: NFLDREF 16:19 | PROVIDERS: PCP Internal Medicine; Visit Provider Internal Medicine | DX: D68.52 Prothrombin gene mutation (principal) | CPT/HCPCS: 85260 ==

== ENCOUNTER 2025-04-09 08:18 | Outpatient (CLI) | payer OTHER, SELFPAY | END 2025-04-09 08:19 | disposition home or self-care (01) | LOC: NFLDREF 08:21 | PROVIDERS: PCP Internal Medicine; Visit Provider Internal Medicine | DX: D68.59 Other primary thrombophilia (principal) | CPT/HCPCS: 85260 ==

== ENCOUNTER 2025-05-27 07:28 | Outpatient (CLI) | payer OTHER, SELFPAY | END 2025-05-27 07:29 | disposition home or self-care (01) | LOC: NFLDREF 05-28 16:13 | PROVIDERS: PCP Internal Medicine; Referring Provider Internal Medicine; Visit Provider Internal Medicine | DX: D68.59 Other primary thrombophilia (principal); Z79.01 Long term (current) use of anticoagulants | CPT/HCPCS: 85260 ==

== ENCOUNTER 2025-07-02 09:34 | Outpatient (CLI) | payer OTHER, SELFPAY | END 2025-07-02 09:35 | disposition home or self-care (01) | LOC: NFLDREF 09:37 | PROVIDERS: PCP Internal Medicine; Visit Provider Internal Medicine | DX: S32.000A Wedge compression fracture of unspecified lumbar vertebra, initial encounter for closed fracture (principal); W19.XXXA Unspecified fall, initial encounter | CPT/HCPCS: 85260 ==

== ENCOUNTER 2025-07-24 11:08 | Outpatient (CLI) | payer OTHER, SELFPAY ==
--- NOTE | 2025-07-24 11:30 | CRLHL7_ITS ---
For Patients: As a result of the Cures Act, medical imaging exams and procedure reports are released immediately into your electronic medical record. You may view this report before your referring provider. If you have questions, please contact your health care provider. INDICATION: BILATERAL SCREENING MAMMOGRAM, ASYMPTOMATIC 69 Y/O FEMALE COMPARISON: RE-ESTABLISH BASELINE TECHNIQUE: Digital mammogram in CC and MLO projections including computer-aided detection (CAD) and tomosynthesis. BREAST COMPOSITION: The breasts are extremely dense, which lowers the sensitivity of mammography. FINDINGS: No suspicious findings. ASSESSMENT: BI-RADS 2 Benign RECOMMENDATION: Annual screening mammogram. A lay language report of this examination will be provided to the patient. Dictated by: Gareth Ellison MD @ 07/24/2025 12:32:46 (Electronically Signed)
== END 2025-07-24 11:09 | disposition home or self-care (01) ==
LOC: MAMMO 11:08
PROVIDERS: PCP Internal Medicine; Visit Provider Internal Medicine
DX: Z12.31 Encounter for screening mammogram for malignant neoplasm of breast (principal); R92.343 Mammographic extreme density, bilateral breasts
CPT/HCPCS: 77063; 77067

== ENCOUNTER 2025-08-25 08:25 | Outpatient (CLI) | payer OTHER, SELFPAY | END 2025-08-25 08:26 | disposition home or self-care (01) | LOC: NFLDREF 08-28 03:03 | PROVIDERS: PCP Internal Medicine; Referring Provider Internal Medicine; Visit Provider Internal Medicine | DX: E11.9 Type 2 diabetes mellitus without complications (principal); Z51.81 Encounter for therapeutic drug level monitoring; Z79.01 Long term (current) use of anticoagulants | CPT/HCPCS: 85260 ==

== ENCOUNTER 2025-10-08 09:34 | Outpatient (CLI) | payer OTHER, SELFPAY | END 2025-10-08 09:35 | disposition home or self-care (01) | LOC: NFLDREF 09:35 | PROVIDERS: PCP Internal Medicine; Visit Provider Internal Medicine | DX: D68.62 Lupus anticoagulant syndrome (principal) | CPT/HCPCS: 85260 ==